=== PATIENT | male | born 1935 | race Caucasian/White ===

== ENCOUNTER 2021-05-25 07:04 | Inpatient (IN) ==
[2021-05-25] MEDS ORDERED: SODIUM CHLORIDE 0.9% 500 ML IV SCH (07:30)
[2021-05-25 08:05] LABS: Basophils # (auto) 0.01 K/uL (0-0.2); Basophils % (auto) 0.2 %; Eosinophils # (auto) 0.04 K/uL (0-0.5); Eosinophils % (auto) 0.7 %; Hematocrit (blood only) 40.4 % (42-52); Hemoglobin 13.3 g/dL (14.0-18.0); Immature Granulocytes # (auto) 0.01 K/uL (0.00-0.02); Immature Granulocytes % (auto) 0.2 %; Lymphocytes # (auto) 1.22 K/uL (1.2-3.4); Lymphocytes % (auto) 19.9 %; Mean Corpuscular Hemoglobin 29.4 pg (25-34); Mean Corpuscular Hgb Conc 32.9 g/dL (32-36); Mean Corpuscular Volume 89.2 fL (80-100); Mean Platelet Volume 11.5 fL (7.4-10.4); Monocytes # (auto) 0.44 K/uL (0.11-0.59); Monocytes % (auto) 7.2 %; Neutrophils # (auto) 4.41 K/uL (1.4-6.5); Neutrophils % (auto) 71.8 %; Platelet Count 204 K/uL (130-400); RDW Coefficient of Variation 13.5 % (11.5-14.5); RDW Standard Deviation 44.7 fL (36.4-46.3); Red Blood Count 4.53 M/uL (4.7-6.1); White Blood Count 6.13 K/uL (4.8-10.8)
--- NOTE | 2021-05-25 08:08 | Emergency Department Note ---
History of Present Illness General Chief complaint: Vertigo Stated complaint: VERTIGO SX Time Seen by Provider: 05/25/21 07:07 History of Present Illness 85-year-old male presents to the ED with a chief complaint of " dizziness in the head". The patient states that his symptoms started at 5 AM this morning. He states that the room was spinning. He came into the ED for evaluation of this. He states that it is somewhat better at this time. He also reports a frontal headache. Denies recent illness. The patient states that his headache has been intermittent and ongoing for some time. He states that he also has had some numbness in his right cheek that moved to his right upper lip. He states this is mostly gone. He had an MRI of his brain last night around 5 PM at [facility]. Results at this time are unknown. This morning his dizziness started after sitting up. Patient denies any other symptoms or focal deficits. No recent illness. Home Medications Medication Instructions Recorded Confirmed Type doxazosin 4 mg tablet (Cardura) 4 mg PO BID 05/25/21 05/25/21 History finasteride 5 mg tablet (Proscar) 5 mg PO HS 05/25/21 05/25/21 History omeprazole 20 mg capsule,delayed 20 mg PO HS 05/25/21 05/25/21 History release Allergies Allergy/AdvReac Type Severity Reaction Status Date / Time thiamine (vitamin B1) Allergy Mild RASH Verified 05/25/21 08:28 Penicillins Allergy Unknown RASH Verified 05/25/21 08:28 soy Allergy Unknown SHAKY, Verified 05/25/21 08:28 CHILLS, BM Past Med/Surg History Social History Smoking Status: Never smoker Feels Safe at Home: Yes Review of Systems A total of 10 systems reviewed and were otherwise negative Physical Exam Vital Signs Vital Signs - 24 hr 05/25/21 06:52 05/25/21 07:26 05/25/21 09:15 Temperature 36.8 C Temperature Source Oral Pulse Rate 70 59 L Pulse Rate [Right Finger] 59 L Pulse Rhythm Regular Pulse Rhythm [Right Finger] Regular Respiratory Rate 16 17 Respiratory Effort / Characteristics Non-Labored Non-Labored Blood Pressure 134/68 Blood Pressure [Left Arm] 158/74 H Blood Pressure Mean 90 Blood Pressure Mean [Left Arm] 102 Blood Pressure Position Sitting Pulse Oximetry 98 100 99 Oxygen Delivery Method Room Air Room Air Room Air Sepsis Recent Fever Within 48 Hours No Sepsis New/Unexplained Change in Mental Status No Sepsis Action Taken by Nursing No Action Required CONSTITUTIONAL/VITAL SIGNS: Reviewed / noted above. GENERAL: Non-toxic in appearance. INTEGUMENTARY: Warm, dry, and [place]. HEAD: Normocephalic. EYES: without scleral icterus or trauma. ENT/OROPHARYNX: clear and moist. LYMPHADENOPATHY/NECK: Is supple without lymphadenopathy or meningismus. RESPIRATORY: Clear to auscultation bilaterally. No increased work of breathing. CARDIOVASCULAR: Regular rate and rhythm. GI/ABDOMEN: Soft and nontender. No organomegaly or pulsatile mass. EXTREMITIES: Warm and well perfused. BACK: No CVA tenderness. NEUROLOGICAL: Intact without focal deficits. PSYCHIATRIC: normal affect. MUSCULOSKELETAL: Normally developed with good muscle tone. TRIAGE NURSING DOCUMENTATION REVIEWED. Course Administered Medications Discontinued Medications Sodium Chloride (Nss) 500 mls @ 999 mls/hr IV .Q31M RAHUL Stop: 05/25/21 08:00 Last Infusion: 05/25/21 09:20 Dose: 0 mls/hr Documented by: [id number] Admin: 05/25/21 08:19 Dose: 999 mls/hr Documented by: [id number] Acetaminophen (Ofirmev) 1,000 mg in 100 mls @ 400 mls/hr IV NOW STA Stop: 05/25/21 08:26 Last Infusion: 05/25/21 09:19 Dose: 0 mls/hr Documented by: [id number] Admin: 05/25/21 08:33 Dose: 400 mls/hr Documented by: [id number] Meclizine HCl (Meclizine Hcl 25 Mg Tab) 25 mg PO NOW STA Stop: 05/25/21 08:13 Last Admin: 05/25/21 08:32 Dose: 25 mg Documented by: [id number] Medical Decision Making Differential Diagnosis Differential includes acute coronary syndrome, myocardial infarction, CVA, TIA, anemia, infection, pneumonia, UTI, pyelonephritis, poor nutrition, dehydration, electrolyte disturbance,hypoglycemia. Medical Records Attestation: I reviewed the patient's medical records. Home Medications Current Medication List: was personally reviewed by me Laboratory Data Attestation: I reviewed the patient's lab results. Result diagrams: 05/25/21 07:58 05/25/21 07:58 Lab Results 05/25/21 05/25/21 05/25/21 Range/Units 07:58 07:58 10:17 WBC 6.13 (4.8-10.8) K/uL RBC 4.53 L (4.7-6.1) M/uL Hgb 13.3 L (14.0-18.0) g/dL Hct 40.4 L (42-52) % MCV 89.2 (80-100) fL MCH 29.4 (25-34) pg MCHC 32.9 (32-36) g/dL RDW Std Deviation 44.7 (36.4-46.3) fL RDW Coeff of Flori 13.5 (11.5-14.5) % Plt Count 204 (130-400) K/uL MPV 11.5 H (7.4-10.4) fL Immature Gran % (Auto) 0.2 % Neut % (Auto) 71.8 % Lymph % (Auto) 19.9 % Darke % (Auto) 7.2 % Eos % (Auto) 0.7 % Baso % (Auto) 0.2 % Neut # (Auto) 4.41 (1.4-6.5) K/uL Lymph # (Auto) 1.22 (1.2-3.4) K/uL Darke # (Auto) 0.44 (0.11-0.59) K/uL Eos # (Auto) 0.04 (0-0.5) K/uL Baso # (Auto) 0.01 (0-0.2) K/uL Immature Gran # (Auto) 0.01 (0.00-0.02) K/uL Sodium 142 (136-145) mmol/L Potassium 4.1 (3.5-5.1) mmol/L Chloride 113 H (98-107) mmol/L Carbon Dioxide 24 (21-32) mmol/L Anion Gap 5.0 (3-11) BUN 20 H (7-18) mg/dl Creatinine 1.01 (0.6-1.4) mg/dl Est Cr Clr Drug Dosing 55.4 ml/min Est GFR ( Amer) 79.4 ml/min Est GFR (Non-Af Amer) 68.5 ml/min BUN/Creatinine Ratio 19.8 (10-20) Glucose 98 (70-99) mg/dl Calcium 8.5 (8.5-10.1) mg/dl Total Bilirubin 0.5 (0.2-1) mg/dl AST 16 (15-37) U/L ALT 16 (12-78) U/L Alkaline Phosphatase 67 (45-117) U/L Total Protein 6.2 L (6.4-8.2) gm/dl Albumin 3.3 L (3.4-5.0) gm/dl Globulin 2.9 (2.5-4.0) gm/dl Albumin/Globulin Ratio 1.1 (0.9-2) TSH 0.760 (0.300-4.500) uIu/ml COVID-19 Eval Order Covid19 at [facility] Imaging Data Radiologist's Impression: Chest X-Ray 05/25/21 07:26 SINGLE VIEW CHEST CLINICAL HISTORY: Generalized weakness. Vertigo. FINDINGS: An AP, portable, upright chest radiograph is compared to study dated 07/27/2010. The cardiomediastinal silhouette is unremarkable noting atherosclerotic calcification of the thoracic aorta. The lungs and pleural spaces are clear. No pneumothorax is seen. The skeletal structures are osteo penic. The bony thorax is grossly intact. IMPRESSION: No active disease in the chest. ACT 112: Negative or not required by law. Electronically signed by: Harsh Smalls M.D. 05/25/2021 8:[address] 05/25/21 07:26 CT OF THE HEAD WITHOUT CONTRAST CLINICAL HISTORY: Frontal headache. COMPARISON STUDY: No previous studies for comparison. CT DOSE: 537.48 mGy.cm TECHNIQUE: Helical axial images of the head were obtained without IV contrast. Automated exposure control was utilized for the study. A dose lowering technique was utilized adhering to the principles of ALARA. FINDINGS: No acute intracranial hemorrhage, midline shift or mass effect is present. White matter hypodensities favor small vessel disease. The ventricular system is unremarkable. The basal cisterns are patent. No extra-axial collections are present. There are no findings to suggest acute dural sinus thrombosis or acute territorial infarct. No significant calvarial abnormalities are present. Visualized portions of the sinuses and mastoid air cells are clear. IMPRESSION: No acute intracranial findings. ACT 112: Negative or not required by law. Electronically signed by: Ant Shelley M.D. 05/25/2021 8:28 AM ECG Data Attestation: I personally reviewed and interpreted this ECG as follows: Additional Comments: Twelve-lead EKG: Per my interpretation there is a sinus rhythm at a rate of 64 with a first-degree AV block and a right bundle branch block. No ST elevation. No PVCs. Normal QTC. MDM Narrative Patient presents with dizziness and the sensation of the room spinning around 5 AM this morning after sitting up. He is also had some numbness in his right cheek for over a week. Had MRI of his brain last night. Currently complaining of a frontal headache. Dizziness symptoms seem to have mostly resolved. Numbness in the cheek has moved to the right upper lip and is mostly gone. Patient's EKG shows a sinus rhythm. CBC and chemistry panel was unremarkable. A chest x-ray did not show acute process. TSH was normal. CT scan of the brain did not show acute process. We had the MRI that was done last night read by the neurology service at [facility]. This shows a small acute to subacute lacunar type infarct in the left thalamus. Because of this, the patient will be seen by the hospitalist for further inpatient evaluation and care. The patient has been placed on aspirin prior to coming to the ED. He was treated with IV fluids, p.o. meclizine and IV Tylenol for his headache. He has no focal neurologic deficits on my exam. Impression & Plan Lacunar infarct, acute, Dizziness Discharge Plan Visit Data Chief Complaint: Vertigo Stated Complaint: VERTIGO SX ED Provider: Jacques Livingston Discharge Problem: Lacunar infarct, acute, Dizziness Patient Disposition: Being Evaluated by Hospitalist Forms Stand Alone Forms: My [facility] Prescriptions Prescriptions: No Action omeprazole 20 mg capsule,delayed release(DR/EC) 20 mg PO HS RF: 0 doxazosin [Cardura] 4 mg tablet 4 mg PO BID RF: 0 finasteride [Proscar] 5 mg tablet 5 mg PO HS RF: 0 Referrals Referrals: Grant Gold, [Primary Care Provider] -
[2021-05-25] MEDS ORDERED: MECLIZINE HCL 25 MG TAB PO STA (08:12)
[2021-05-25] MEDS ORDERED: ACETAMINOPHEN 1,000 MG/100 ML VIAL IV STA (08:12)
[2021-05-25 08:26] LABS: Albumin Level 3.3 gm/dl (3.4-5.0); BUN Creatinine Ratio 19.8 (10-20); Calcium 8.5 mg/dl (8.5-10.1); Creatinine Clr Calc Pharmacy 55.4 ml/min; Est GFR (African American) 79.4 ml/min; Est GFR (Non-African American) 68.5 ml/min; Potassium 4.1 mmol/L (3.5-5.1)
--- NOTE | 2021-05-25 08:29 | CT Scan Report ---
CT OF THE HEAD WITHOUT CONTRAST CLINICAL HISTORY: Frontal headache. COMPARISON STUDY: No previous studies for comparison. CT DOSE: 537.48 mGy.cm TECHNIQUE: Helical axial images of the head were obtained without IV contrast. Automated exposure con trol was utilized for the study. A dose lowering technique was utilized adhering to the principles o f ALARA. FINDINGS: No acute intracranial hemorrhage, midline shift or mass effect is present. White matter hyp odensities favor small vessel disease. The ventricular system is unremarkable. The basal cisterns are patent. No extra-axial collections are present. There are no findings to suggest acute dural sinus t hrombosis or acute territorial infarct. No significant calvarial abnormalities are present. Visualize d portions of the sinuses and mastoid air cells are clear. IMPRESSION: No acute intracranial findings. ACT 112: Negative or not required by law. Electronically signed by: Ant Shelley M.D. 05/25/2021 8:28 AM
[2021-05-25 08:36] LABS: Albumin Globulin Ratio 1.1 (0.9-2); Bilirubin,Total 0.5 mg/dl (0.2-1); Globulin 2.9 gm/dl (2.5-4.0); Thyroid Stimulating Hormone 0.76 uIu/ml (0.300-4.500); Total Protein 6.2 gm/dl (6.4-8.2)
--- NOTE | 2021-05-25 08:36 | XRay Report ---
SINGLE VIEW CHEST CLINICAL HISTORY: Generalized weakness. Vertigo. FINDINGS: An AP, portable, upright chest radiograph is compared to study dated 07/27/2010. The cardio mediastinal silhouette is unremarkable noting atherosclerotic calcification of the thoracic aorta. Th e lungs and pleural spaces are clear. No pneumothorax is seen. The skeletal structures are osteopenic . The bony thorax is grossly intact. IMPRESSION: No active disease in the chest. ACT 112: Negative or not required by law. Electronically signed by: Harsh Smalls M.D. 05/25/2021 8:35 AM
--- NOTE | 2021-05-25 10:19 | History & Physical Report ---
Date of Service May 25, 2021 Assessment & Plan (1) Lacunar infarct, acute: Plan: - Admit to med surg with tele - MRI from [facility] reviewed as outpatient showin. Small acute to subacute lacunar type infarct in the left thalamus. No evidence of associated blood products. 2. 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 - Neuro consulted - Stoke order set completed - PT/OT consults - Allow for permissive HTN with BP: currently 158/74 and Pulse 59. - Lyme resulted negative from lab work on 05/22 - Received flu shot on 05/22, completed COVID vaccination in Sep 2020 - Start on aspirin, plavix and statin therapy today - Allow diet once passes bedside swallow eval (2) Dizziness: Plan: - Due to above (3) Facial numbness: Plan: - Due to above (4) Headache: Plan: - Due to above (5) BPH (benign prostatic hyperplasia): Plan: - hx of such, continue medications (6) Osteoarthritis: Plan: - PT/OT consults (7) Monoclonal paraproteinemia: Plan: - Noted, chronic DVT ppx: - teds, aspirin and Plavix CODE: Full code Dispo: From home, likely to remain in the hospital x 1-2 days History of Present Illness Primary Care Provider: Grant Gold, This is an 85 yo M with PMhx of osteoarthritis, monoclonal paraproteinemia, BPH with LUTS, hx of small bowel obstruction and schatzki's ring. Pt reports having right sided facial numbness which was present upon waking up this past Saturday morning (5 days ago). 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 He denies having any speech or swallowing issues at that point. Specifically the numbness involves his right upper lip and cheek. He contacted his PCP for this. MRI was ordered, Lyme ordered (resulted negative) and he received his flu vaccine on 05/22. He was also referred to neurology, and saw Sofie Bond PA-C yesterday who ordered an MRI of the brain. Today he noticed headache and dizziness and so came to the ER. His numbess of the cheek is gone, and feels his upper lip numbness has improved but is not completely back to normal. He feels as if a Novocain injection had started to wear off, but didn't receive such an injection. His MRI had not resulted prior to coming to the ER, so once here radiology was called to read his reports obtained from yesterday. MRI resulted this morning shows small acute to subacute lacunar type infarct in the left thalamus. No evidence of associated blood products. 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 Surgical Hx: Partial bowel resection approximately 20 years ago, abdominal adhesions, requiring surgery x2, status post cholecystectomy and appendectomy Allergies Allergy/AdvReac Type Severity Reaction Status Date / Time thiamine (vitamin B1) Allergy Mild RASH Verified 05/25/21 08:28 Penicillins Allergy Unknown RASH Verified 05/25/21 08:28 soy Allergy Unknown SHAKY, Verified 05/25/21 08:28 CHILLS, BM Home Medications Medication Instructions Recorded Confirmed Type doxazosin 4 mg tablet (Cardura) 8 mg PO HS 05/25/21 05/25/21 History finasteride 5 mg tablet (Proscar) 5 mg PO HS 05/25/21 05/25/21 History aspirin 81 mg tablet,delayed 81 mg PO QAM #30 tab 05/26/21 Rx release atorvastatin 40 mg tablet 40 mg PO QAM #30 tab 05/26/21 Rx clopidogrel 75 mg tablet 75 mg PO QAM #30 tab 05/26/21 Rx pantoprazole 40 mg tablet,delayed 40 mg PO HS #30 tab 05/26/21 Rx release Past Med/Surg History Social History Smoking Status: Never smoker Hx Alcohol Use: No Hx Substance Use: No Communication Ability: Effective Beliefs That Will Affect Care: None marital status: Current Living Situation: Spouse How many Children do You have: 3 Feels Safe at Home: Yes Safety Concerns: Feels Safe At This Time Assistive Devices: None Review of Systems Review of Systems: Constitutional: No fever, sweats or chills, + dizziness, +headache Eyes: No diplopia, no worsening or blurred vision ENT: normal hearing, no trouble swallowing, food occasionally gets stuck, hx of dilation of esophagus x 2 previously Respiratory: No cough, sputum, dyspnea at rest or on exertion Cardiovascular: No chest pain, tightness or palpitations Abdomen: No pain, nausea, vomiting, diarrhea or constipation, + bloated Musculoskeletal: No joint pain, calf pain, swelling Neurologic: No weakness, +numbness/tingling in Right upper lip as per HPI, or balance problems Psychiatric: No anxiety or depression Skin: No rash or itch Physical Exam Physical Exam: General: awake, alert, no apparent distress, appears younger than stated age Head: Normocephalic, atraumatic ENT: PERRL, EOMI, no pharyngeal exudate, mucous membranes moist Chest: Clear to auscultation, on room air, no adventitious breath sounds Cardiac: Regular rate and rhythm, no murmur, no JVD, normal peripheral pulses, good capillary refill Abdominal: NABS x 4 quadrants, soft, nondistended, nontender to palpation, no rebound or guarding Extremities: Normal inspection, no peripheral edema or erythema, calfs nontender to palpation Psych: Normal mood and affect Neuro: AAO x 3, + numbness to light touch on R upper lip, no numbness in R cheek, strength intact bilaterally and rated 5/5, no motor deficits, speech is clear, no peripheral sensory deficits Results & Data Results & Data ([facility]) Vital Signs (Past 12 Hours) Vital Signs Temp Pulse Pulse Resp BP BP Pulse Ox 05/25/21 09:15 59 L 17 158/74 H 99 05/25/21 07:26 59 L 100 05/25/21 06:52 36.8 C 70 16 134/68 98 Diagnostic Findings Chest X-Ray 05/25/21 07:26 SINGLE VIEW CHEST CLINICAL HISTORY: Generalized weakness. Vertigo. FINDINGS: An AP, portable, upright chest radiograph is compared to study dated 07/27/2010. The cardiomediastinal silhouette is unremarkable noting atherosclerotic calcification of the thoracic aorta. The lungs and pleural spaces are clear. No pneumothorax is seen. The skeletal structures are osteopenic. The bony thorax is grossly intact. IMPRESSION: No active disease in the chest. ACT 112: Negative or not required by law. Electronically signed by: Harsh Smalls M.D. 05/25/2021 8:[address] 05/25/21 07:26 CT OF THE HEAD WITHOUT CONTRAST CLINICAL HISTORY: Frontal headache. COMPARISON STUDY: No previous studies for comparison. CT DOSE: 537.48 mGy.cm TECHNIQUE: Helical axial images of the head were obtained without IV contrast. Automated exposure control was utilized for the study. A dose lowering technique was utilized adhering to the principles of ALARA. FINDINGS: No acute intracranial hemorrhage, midline shift or mass effect is present. White matter hypodensities favor small vessel disease. The ventricular system is unremarkable. The basal cisterns are patent. No extra-axial collections are present. There are no findings to suggest acute dural sinus thrombosis or acute territorial infarct. No significant calvarial abnormalities are present. Visualized portions of the sinuses and mastoid air cells are clear. IMPRESSION: No acute intracranial findings. ACT 112: Negative or not required by law. Electronically signed by: Ant Shelley M.D. 05/25/2021 8:28 AM ECG Additional Comments: 25-MAY-2021 07:34:29 [facility]-EDSTAT ROUTINE RETRIEVAL Sinus rhythm with 1st degree A-V block Left axis deviation Right bundle branch block Inferior infarct (cited on or before 25-MAY-2021) Abnormal ECG When compared with ECG of 17-APR-2007 11:15, [place] interval has increased 25mm/s 10mm/mV 150Hz 9.0.9 12SL 241 JAMES: 16 Referred by: REFERRED SELF Unconfirmed Vent. rate 64 BPM WY interval 220 ms QRS duration 124 ms QT/QTc 436/449 ms Code Status & VTE Plan Code Status Full code Supervising Physician Co-Signing Physician Notes Pt was seen and examined. Agreed with Janis IBARRA exam, assessment abd plan. 85 yo M with PMhx of osteoarthritis, monoclonal paraproteinemia, BPH with LUTS, hx of small bowel obstruction and schatzki's ring was sent to the ER after outpatient MRI showed small acute to subacute lacunar type infarct in the left thalamus. Pt had MRI done for right sided facial numbness, numbness involves his right upper lip and cheek that was ordered by Neuro (outpatient) Today he noticed headache and dizziness and so came to the ER. His numbess of the cheek is gone, and feels his upper lip numbness has improved but is not completely back to normal. CT done in the ER was unremarkable. Will start on Plavix and aspirin. Will get an echo. PT/OT/Speech eval. Neuro consult. Continue monitor closely. MD [place]
[2021-05-25] MEDS: CLOPIDOGREL BISULFATE 75 MG TAB PO SCH (13:07)
[2021-05-25] MEDS: ASPIRIN 81 MG ECTAB PO SCH (13:07)
[2021-05-25] MEDS: ATORVASTATIN 40 MG TAB PO SCH (13:08)
--- NOTE | 2021-05-25 15:11 | Electrocardiogram Report ---
Test Reason : Blood Pressure : / mmHG Vent. Rate : 064 BPM Atrial Rate : 064 BPM P-R Int : 220 ms QRS Dur : 124 ms QT Int : 436 ms P-R-T Axes : 057 -61 020 degrees QTc Int : 449 ms Sinus rhythm with 1st degree A-V block Left axis deviation Right bundle branch block Inferior infarct (cited on or before 25-MAY-2021) Abnormal ECG When compared with ECG of 17-APR-2007 11:15, [place] interval has increased Confirmed by Ry Riley ([id number]) on 05/25/2021 3:11:20 PM Referred By: REFERRED SELF Confirmed By:Ry Riley
[2021-05-25] MEDS ORDERED: PHARMACIST DISCHARGE MED REC CONSULT PRN (15:55)
[2021-05-25] MEDS ORDERED: PANTOprazole 40 MG TAB PO SCH (21:00)
[2021-05-25] MEDS ORDERED: DOXAZosin MESYLATE 4 MG TAB PO SCH (21:00)
[2021-05-25] MEDS ORDERED: FINASTERIDE 5 MG TAB PO SCH (21:00)
[2021-05-26 06:59] LABS: Appearance Urine Clear (Clear); Bilirubin Urine Negative (Negative); Blood Urine Negative (Negative); Color Urine Yellow; Glucose Urine UA Negative (Negative); Ketones Urine Negative (Negative); Leukocyte Esterase Urine Negative (Negative); Nitrite Urine Negative (Negative); Protein Urine Negative (Negative); Specific Gravity Urine 1.014 (1.000-1.030); Urobilinogen Urine Negative (Negative); pH Urine 5.5 (4.5-7.5)
[2021-05-26 07:54] LABS: Basophils # (auto) 0.01 K/uL (0-0.2); Basophils % (auto) 0.2 %; Eosinophils # (auto) 0.14 K/uL (0-0.5); Eosinophils % (auto) 2.8 %; Hematocrit (blood only) 39.1 % (42-52); Hemoglobin 12.9 g/dL (14.0-18.0); Lymphocytes # (auto) 1.77 K/uL (1.2-3.4); Lymphocytes % (auto) 35.5 %; Mean Corpuscular Hemoglobin 29.5 pg (25-34); Mean Corpuscular Volume 89.5 fL (80-100); Mean Platelet Volume 11.6 fL (7.4-10.4); Monocytes # (auto) 0.58 K/uL (0.11-0.59); Monocytes % (auto) 11.6 %; Neutrophils # (auto) 2.49 K/uL (1.4-6.5); Neutrophils % (auto) 49.9 %; Platelet Count 197 K/uL (130-400); RDW Coefficient of Variation 13.7 % (11.5-14.5); RDW Standard Deviation 45.2 fL (36.4-46.3); Red Blood Count 4.37 M/uL (4.7-6.1); White Blood Count 4.99 K/uL (4.8-10.8)
[2021-05-26 07:55] LABS: Estimated Average Glucose 111 mg/dl; Hemoglobin A1C 5.5 % (4.5-5.6)
[2021-05-26 08:03] LABS: Calcium 7.8 mg/dl (8.5-10.1); Creatinine Clr Calc Pharmacy 47.1 ml/min; Est GFR (African American) 66.4 ml/min; Est GFR (Non-African American) 57.3 ml/min; Potassium 4.2 mmol/L (3.5-5.1)
[2021-05-26] MEDS ORDERED: ASPIRIN 81 MG ECTAB PO SCH (09:00)
[2021-05-26] MEDS ORDERED: ATORVASTATIN 40 MG TAB PO SCH (09:00)
[2021-05-26] MEDS: CLOPIDOGREL BISULFATE 75 MG TAB PO SCH (09:15)
[2021-05-26] MEDS: ATORVASTATIN 40 MG TAB PO SCH (09:15)
[2021-05-26] MEDS: ASPIRIN 81 MG ECTAB PO SCH (09:15)
--- NOTE | 2021-05-26 12:58 | Neurology Consultation ---
Date of Consultation May 26, 2021 Assessment & Plan (1) Lacunar infarct, acute: 1. add plavix 75 mg and aspirin 81 mg daily for 21 days then aspirin 81 mg alone for life 2. optimize HTN HLD LDL <70 3. PT/OT for discharge needs 4. TTE- pending read 5. carotid doppler no high grade stenosis or occlusion 6. follow up with neurology 4-6 weeks after discharge. Supervising Physician Co-Signing Physician Notes I have seen and discussed above patient with Dr Sofie Conway, neurology patient seen and examined. History reviewed. Patient reports numbness in right face that came on 1 to 2 weeks ago. He had an MRI on Saturday night that showed a small left thalamic lacune. I reviewed those outpatient images. Apparently when he came into the emergency room the following day he did so because of continuous vertigo. He awakened with a severe headache that was frontal. He has no history of headaches and he had nonpositional vertigo which lasted hours. He indicated the vision was blurred but not double and that he did not otherwise notice any focal neurologic symptoms such as diplopia dysarthria facial droop or unilateral weakness or numbness. He was quite unsteady. There were no otologic symptoms. The dizziness responded in the emergency room after several hours I assume with some hydration and meclizine. Patient CT of the head which I have reviewed is noncontributory his carotid ultrasound shows antegrade flow in the verts and no high-grade stenosis in the carotids. His echo apparently shows a small ASD with a minimal shunt. He has no history of rheumatic fever or murmur prior transient ischemic attack. His baseline LDL is less than 70. Patient is awake and alert speech and language are normal affect appropriate he has some repetitive brow raising and a little bit of blepharospasm which I suspect is long-term and represents a tic his pupils are postsurgical optic nerves appeared unremarkable motility was normal without nystagmus normal facial sensation facial symmetry. Motor 5 out of 5 no drift normal rapid alternating movements. Symmetric reflexes downgoing toes [id number] and [id number] are normal. Gait and tandem are normal Romberg is negative. Sensation is i ntact to light touch bilaterally This patient had an acute left thalamic lacune which explains his right facial numbness. I am somewhat more concerned about the symptom of persistent nonpositional vertigo lasting hours. The left thalamic lacunar would not explain that although generators of vertigo and the thalamus have both the posterior circulation. This raises the question whether or not there may be any posterior circulation stenosis. I think the best course would be to repeat an MRI of the brain and do an MRA of the head and neck the neck with and without contrast. The patient declines although he understands that we have not necessarily adequately visualize the posterior circulation. The management would likely be unchanged (dual antiplatelet therapy x3 weeks then aspirin monotherapy) but still the information helpful if he had recurrent events. Given that he had this vertigo that is otherwise not explained I would recommend a Zio patch as an outpatient. I have communicated my advice to Dr. Gutierrez History of Present Illness Reason for Consultation: stroke Requesting Physician: Imtiaz Wallace MD Attending Physician: Imtiaz Wallace MD History of Present Illness Mauricio is an 85 year old male with PMH-OA, monoclonal paraproteinemia, BPH with LUTS, small bowel obstruction and schatzki's ring. He was having right sided facial numbness which was present upon waking on Saturday05/20/2021. 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 He was seen in our office 05/24/21 and ordered an MRI. Today he noticed headache and dizziness so he came to the ED. He was dizzy for about 3-4 hours and didn't resolve until they gave him some IV fluids. He had no one sided weakness, CP, SOB abdominal pain, N, V Allergies Allergy/AdvReac Type Severity Reaction Status Date / Time thiamine (vitamin B1) Allergy Mild RASH Verified 05/25/21 08:28 Penicillins Allergy Unknown RASH Verified 05/25/21 08:28 soy Allergy Unknown SHAKY, Verified 05/25/21 08:28 CHILLS, BM Home Medications Medication Instructions Recorded Confirmed Type doxazosin 4 mg tablet (Cardura) 8 mg PO HS 05/25/21 05/25/21 History finasteride 5 mg tablet (Proscar) 5 mg PO HS 05/25/21 05/25/21 History omeprazole 20 mg capsule,delayed 20 mg PO HS 05/25/21 05/25/21 History release Patient History Social History Smoking Status: Never smoker Hx Alcohol Use: No Hx Substance Use: No Communication Ability: Effective Beliefs That Will Affect Care: None marital status: Current Living Situation: Spouse How many Children do You have: 3 Feels Safe at Home: Yes Safety Concerns: Feels Safe At This Time Assistive Devices: None Review of Systems Review of Systems: All systems reviewed & are unremarkable except as noted in HPI & below Physical Exam Physical Exam: Physical Exam: Constitutional: appearance nourished, healthy and normal Ears, Nose, Mouth and Throat: mucous membranes moist, no injection and skin normal, eyes normal Cardiovascular: normal S-1 and S-2 and regular rate and rhythm Respiratory: clear to auscultation (CTA) and no rales, rhonchi or wheeze Musculoskeletal: no peripheral edema Skin: no stigmata of neurocutaneous disease noted and normal and intact Eyes: extraocular muscles intact (EOMI) and pupils equal, round and reactive to light (PERRL), gross peripheral mcneill intact NEUROLOGIC EXAMINATION: Mental status: Alert and interactive Oriented to full date and location Oriented to person Speech fluent with no evidence of aphasia Cranial Nerves smile eye brow raise symmetric Reflexes: Deep tendon reflexes were symmetrical and graded 2/5. Sensory: no sensory deficits Coordination: finger to nose no bipass Gait/Stance: Posture normal. Gait normal: with steady with steps, base, tandem gait. Motor: Negative for pronator drift of out stretched arms with eyes closed. Strength: hand matting press tender biceps triceps bilaterally 5/5, hip flex 5/5 bilaterally Results & Data ([facility]) Vital Signs (Past 12 Hours) Vital Signs Temp Pulse Pulse Resp BP Pulse Ox 05/26/21 10:51 36.7 C 69 16 128/72 95 05/26/21 08:00 69 05/26/21 07:42 36.6 C 76 16 118/68 97 05/26/21 07:20 36.7 C 83 18 137/66 97 05/26/21 03:30 36.6 C 65 19 130/68 96 05/26/21 03:16 66 Laboratory Results Abnormal lab results 05/26/21 05/26/21 Range/Units 07:16 07:16 RBC 4.37 L (4.7-6.1) M/uL Hgb 12.9 L (14.0-18.0) g/dL Hct 39.1 L (42-52) % MPV 11.6 H (7.4-10.4) fL Chloride 114 H (98-107) mmol/L BUN 21 H (7-18) mg/dl Calcium 7.8 L (8.5-10.1) mg/dl Diagnostic Findings MRI brain -Small acute to subacute lacunar type infarct in the left thalamus. No evidence of associated blood products. 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 CT head-o acute intracranial hemorrhage, midline shift or mass effect is present. White matter hypodensities favor small vessel disease. The ventricular system is unremarkable. The basal cisterns are patent. No extra-axial collections are present. There are no findings to suggest acute dural sinus thrombosis or acute territorial infarct. No significant calvarial abnormalities are present. Visualized portions of the sinuses and mastoid air cells are clear. CXR- No active disease in the chest. carotid doppler-No hemodynamically significant stenosis seen within the carotid arteries. Medications Administered
--- NOTE | 2021-05-26 16:01 | Ultrasound Report ---
BILATERAL CAROTID DOPPLER STUDY HISTORY: Stroke symptoms. Frontal headache. COMPARISON: None. TECHNIQUE: Real-time, grayscale, and color Doppler sonography of the carotid arteries was performed. Imaging reviewed in the transverse and longitudinal planes. All measurements were calculated based on NASCET criteria. FINDINGS: Antegrade flow is seen in the bilateral vertebral arteries. The brachial pressures are hemodynamically similar. Mild calcified plaque within the left carotid bulb. The peak systolic velocity within the right ICA is 82 cm/s. The right systolic ratio is 1. The peak systolic velocity within the left ICA is 54 cm/s. The left systolic ratio is 0.6. IMPRESSION: No hemodynamically significant stenosis seen within the carotid arteries. ACT 112: Negative or not required by law. Electronically signed by: Amauri Clark M.D. 05/26/2021 4:00 PM
--- NOTE | 2021-05-26 17:20 | Discharge Summary ---
Date of Service May 26, 2021 Admission HPI Per Admitting Provider This is an 85 yo M with PMhx of osteoarthritis, monoclonal paraproteinemia, BPH with LUTS, hx of small bowel obstruction and schatzki's ring. Pt reports having right sided facial numbness which was present upon waking up this past Saturday morning (5 days ago). 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 He denies having any speech or swallowing issues at that point. Specifically the numbness involves his right upper lip and cheek. He contacted his PCP for this. MRI was ordered, Lyme ordered (resulted negative) and he received his flu vaccine on 05/22. He was also referred to neurology, and saw Sofie Bond PA-C yesterday who ordered an MRI of the brain. Today he noticed headache and dizziness and so came to the ER. His numbess of the cheek is gone, and feels his upper lip numbness has improved but is not completely back to normal. He feels as if a Novocain injection had started to wear off, but didn't receive such an injection. His MRI had not resulted prior to coming to the ER, so once here radiology was called to read his reports obtained from yesterday. MRI resulted this morning shows small acute to subacute lacunar type infarct in the left thalamus. No evidence of associated blood products. 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 Surgical Hx: Partial bowel resection approximately 20 years ago, abdominal adhesions, requiring surgery x2, status post cholecystectomy and appendectomy Admission Exam Per Admitting Provider General: awake, alert, no apparent distress, appears younger than stated age Head: Normocephalic, atraumatic ENT: PERRL, EOMI, no pharyngeal exudate, mucous membranes moist Chest: Clear to auscultation, on room air, no adventitious breath sounds Cardiac: Regular rate and rhythm, no murmur, no JVD, normal peripheral pulses, good capillary refill Abdominal: NABS x 4 quadrants, soft, nondistended, nontender to palpation, no rebound or guarding Extremities: Normal inspection, no peripheral edema or erythema, calfs nontender to palpation Psych: Normal mood and affect Neuro: AAO x 3, + numbness to light touch on R upper lip, no numbness in R cheek, strength intact bilaterally and rated 5/5, no motor deficits, speech is clear, no peripheral sensory deficits Principal Diagnosis Lacunar infarct, acute: Discharge Exam General: awake, alert, no apparent distress, appears younger than stated age Head: Normocephalic, atraumatic ENT: PERRL, EOMI, no pharyngeal exudate, mucous membranes moist Chest: Clear to auscultation, on room air, no adventitious breath sounds Cardiac: Regular rate and rhythm, no murmur, no JVD, normal peripheral pulses, good capillary refill Abdominal: NABS x 4 quadrants, soft, nondistended, nontender to palpation, no rebound or guarding Extremities: Normal inspection, no peripheral edema or erythema, calfs nontender to palpation Psych: Normal mood and affect Neuro: AAO x 3, + numbness to light touch on R upper lip, no numbness in R cheek, strength intact bilaterally and rated 5/5, no motor deficits, speech is clear, no peripheral sensory deficits Discharge Data Allergies Allergy/AdvReac Type Severity Reaction Status Date / Time thiamine (vitamin B1) Allergy Mild RASH Verified 05/25/21 08:28 Penicillins Allergy Unknown RASH Verified 05/25/21 08:28 soy Allergy Unknown SHAKY, Verified 05/25/21 08:28 CHILLS, BM Consultations 05/25/21 10:32 ED Decision to Admit Stat 05/25/21 15:55 Consult Neurology Routine Ordered Studies 05/25/21 07:26 CT head/brain wo con Stat 05/26/21 12:15 US carotid doppler BI Routine BILATERAL CAROTID DOPPLER STUDY HISTORY: Stroke symptoms. Frontal headache. COMPARISON: None. TECHNIQUE: Real-time, grayscale, and color Doppler sonography of the carotid arteries was performed. Imaging reviewed in the transverse and longitudinal planes. All measurements were calculated based on NASCET criteria. FINDINGS: Antegrade flow is seen in the bilateral vertebral arteries. The brachial pressures are hemodynamically similar. Mild calcified plaque within the left carotid bulb. The peak systolic velocity within the right ICA is 82 cm/s. The right systolic ratio is 1. The peak systolic velocity within the left ICA is 54 cm/s. The left systolic ratio is 0.6. IMPRESSION: No hemodynamically significant stenosis seen within the carotid arteries. ACT 112: Negative or not required by law. Electronically signed by: Amauri Clark M.D. 05/26/2021 4:00 PM Dictated:05/26/211558 Transcribed: 05/26/211558 CT OF THE HEAD WITHOUT CONTRAST CLINICAL HISTORY: Frontal headache. COMPARISON STUDY: No previous studies for comparison. CT DOSE: 537.48 mGy.cm TECHNIQUE: Helical axial images of the head were obtained without IV contrast. Automated exposure control was utilized for the study. A dose lowering technique was utilized adhering to the principles of ALARA. FINDINGS: No acute intracranial hemorrhage, midline shift or mass effect is present. White matter hypodensities favor small vessel disease. The ventricular system is unremarkable. The basal cisterns are patent. No extra-axial collections are present. There are no findings to suggest acute dural sinus thrombosis or acute territorial infarct. No significant calvarial abnormalities are present. Visualized portions of the sinuses and mastoid air cells are clear. IMPRESSION: No acute intracranial findings. ACT 112: Negative or not required by law. Electronically signed by: Ant Shelley M.D. 05/25/2021 8:28 AM Dictated:05/25/21824 Transcribed: 05/25/21824 Diabetes Follow up SINGLE VIEW CHEST CLINICAL HISTORY: Generalized weakness. Vertigo. FINDINGS: An AP, portable, upright chest radiograph is compared to study dated 07/27/2010. The cardiomediastinal silhouette is unremarkable noting atherosclerotic calcification of the thoracic aorta. The lungs and pleural spaces are clear. No pneumothorax is seen. The skeletal structures are osteopenic. The bony thorax is grossly intact. IMPRESSION: No active disease in the chest. ACT 112: Negative or not required by law. Electronically signed by: Harsh Smalls M.D. 05/25/2021 8:35 AM Dictated:05/25/21834 Transcribed: 05/25/21834 Hospital Course (1) Lacunar infarct, acute: - Admit to med surg with tele - MRI from [facility] reviewed as outpatient showin. Small acute to subacute lacunar type infarct in the left thalamus. No evidence of associated blood products. 2. 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 Neuro consulted recommended to repeat MRI head but pt does not want to stay in the hospital. He said that he would do it outpatient Allow for permissive HTN with BP: currently 158/74 and Pulse 59. Lyme resulted negative from lab work on 05/22 Received flu shot on 05/22, completed COVID vaccination in Sep 2020 ECHO showed shows a small ASD with a minimal shunt. Echo finding discussed with cardiology and no additional testing or intervention needed Continue aspirin, plavix and statin therapy Continue PT/OT Follow up with neurology in 4-6 weeks Will need to get arranged for an Ziopatch monitor outpatient (2) Dizziness: - Due to above (3) Facial numbness: - Due to above (4) Headache: - Due to above (5) BPH (benign prostatic hyperplasia): - hx of such, continue medications (6) Osteoarthritis: - PT/OT consults (7) Monoclonal paraproteinemia: - Noted, chronic DVT ppx: - teds, aspirin and Plavix CODE: Full code Dispo: Discharge home Follow up with neuro in 4-6 weeks Total Time Total Time Spent Total Time Spent (In Minutes): 35 minutes Discharge Plan Discharge Items Patient Disposition: Home - Self-Care Reason For Visit: LACUNAR STROKE Discharge Diagnosis: Lacunar infarct, acute: Activity: Resume your previous activity Non-emergency contact: Primary Care Provider and Neurologist Call non-emergency contact if: you have any medication questions Follow-up/Referrals: Grant Gold, [Primary Care Provider] - Diet: Heart Healthy Addtl Attending Provider Instructions: Follow up with your primary care provider within 1 week ( call to schedule for the appointment) Follow up with Neurology Dr. Alvarado or (any of her colleague) in 4 to 6 weeks Continue plavix 75 mg and aspirin 81 mg daily for 21 days then after 21 days continue aspirin 81 mg alone for life You will need to arrange for a Zio patch (Heart Monitor ) outpatient. Your provider or neurology will order it You will need a repeat an MRI of the brain and an MRA of the head and neck with and without contrast. (As per neuro you don't want to stay in the hospital to repeat the MRI and MRA. Neuro will try to arrange it outpatient) Avoid any other NSAID (Such as motrin, aleve, naproxen, ibuprofen, advil....while on aspirin and plavix due to the risk of bleeding Your physician will check your LFT in 1-2 weeks to monitor your liver enzymes while on statin Fall precaution Pending Studies at Discharge: No Stand-Alone Forms: Medications to Prevent Stroke, ABT Molecular Imaging, Smoking Cessation Medications and DC Order Prescriptions: New clopidogrel 75 mg Tablet 75 mg PO QAM Qty: 30 RF: 0 atorvastatin 40 mg Tablet 40 mg PO QAM Qty: 30 RF: 0 aspirin 81 mg Tablet,Delayed Release (Dr/Ec) 81 mg PO QAM Qty: 30 RF: 0 pantoprazole 40 mg Tablet,Delayed Release (Dr/Ec) 40 mg PO HS Qty: 30 RF: 0 Continued doxazosin [Cardura] 4 mg tablet 8 mg PO HS RF: 0 finasteride [Proscar] 5 mg tablet 5 mg PO HS RF: 0 Discontinued omeprazole 20 mg capsule,delayed release(DR/EC) 20 mg PO HS RF: 0 Discharge Orders: Discharge Order (Routine); Ordered 05/26/21 Ordered By: Imtiaz Wallace Admission Data Admit Date/Time: 05/25/21 12:16 Attending Provider: Imtiaz Wallace Admit Provider: Imtiaz Wallace Primary Care Provider: Grant Gold Other Providers: Sofie Conway Other Interventions: Discharge Summary Assessment (RN) Last Done: 05/26/21 18:22
[2021-05-26] MEDS ORDERED: STROKE PATIENT DISCHARGE STA (18:03)
--- NOTE | 2021-05-26 18:42 | Pharmacy Report ---
Pharmacist Stroke Counseling - Date of Service May 26, 2021 - Scope: Pharmacy has been consulted to provide medication discharge counseling for this patient admitted with ischemic stroke as per the Pharmacist Discharge Counseling for Stroke Patients Protocol. - Medications on Discharge: Home Medications Medication Instructions Recorded Confirmed doxazosin 4 mg tablet (Cardura) 8 mg PO HS 05/25/21 05/25/21 finasteride 5 mg tablet (Proscar) 5 mg PO HS 05/25/21 05/25/21 New Rx's Medication Instructions Recorded aspirin 81 mg tablet,delayed 81 mg PO QAM #30 tab 05/26/21 release atorvastatin 40 mg tablet 40 mg PO QAM #30 tab 05/26/21 clopidogrel 75 mg tablet 75 mg PO QAM #30 tab 05/26/21 pantoprazole 40 mg tablet,delayed 40 mg PO HS #30 tab 05/26/21 release - Action: The above medications, specifically ones for stroke treatment/prophylaxis, have been reviewed in detail with the patient and/or patient branch service representative(s) prior to discharge. This includes indication, common adverse reactions, drug interactions, and medication administration. Medication counseling has been employed using the teach-back method to ensure understanding. - Outcome: The patient and/or patient branch service representative(s) have demonstrated understanding of the medications. Additional comments: [] Thank you for allowing pharmacy to be involved in the care of this patient. Please call [phone] with any additional questions
--- NOTE | 2021-06-02 18:25 | Communication Note ---
Date of Service: May 25, 2021 I saw the patient with Dr. Livingston, please see their note for details. Resident Activity Tracking Resident Involvement: Resident Care Provided Care Provided: Adult ED
== END 2021-05-26 19:00 | disposition home or self-care (01) | DRG 65 ==
LOC: ED 07:04 → EDINP 12:16 → 2W 15:11

== ENCOUNTER 2022-02-20 20:59 | Inpatient (IN) ==
[2022-02-20] MEDS ORDERED: SODIUM CHLORIDE 0.9% 500 ML IV ONE (21:10)
[2022-02-20] MEDS ORDERED: ONDANSETRON INJ 2 MG/ML 2 ML VIAL IV STA (21:10)
[2022-02-20] MEDS ORDERED: GLUCAGON 0.5 ML IV ONE (21:10)
[2022-02-20] MEDS ORDERED: LORazepam 2 MG/1 ML VIAL IV STA (21:10)
--- NOTE | 2022-02-20 21:13 | Emergency Department Note ---
Impression & Plan Food impaction of esophagus ED Provider Note Name: ROBERTO TODD Age: 86 Sex: M Arrives Via: Walk-In Informant: Patient, ED Provider: Nando Trejo MD Chief Complaint: Difficulty swallowing Impression: Per impressions above Medical Decision Making: Pleasant 86-year-old gentleman with a history of hypertension, dyslipidemia, GERD CAD arrives for evaluation of difficulty swallowing. Patient swallowed chicken around noon today and it got stuck in his throat. He has been unable to swallow anything since then. He periodically has to spit up his secretions. While he is tolerating secretions he is unable to swallow them. Patient exam is benign other than he is uncomfortable and periodic spits up. Vitals are all right. EKG is unremarkable and chest x-ray is clear. Labs are unremarkable. He was given glucagon and Ativan IV without improvement. He was tested for COVID and is negative. I discussed the case with the on-call brakes inspector and they will take him to the OR. Given his age and planned procedure they did request hospitalist get involved as well. Prior Medical Record and Triage/Nursing Notes reviewed by Me Additional history obtained from chart Differentials:Esophageal foreign body, gastritis, esophagitis, airway obstruction, infectious etiology amongst other etiologies ascertained. Vital Signs: reviewed and remarkable for no significant abnormalities Interventions: Glucagon 0.5 mg IV, Ativan 0.5 mg, normal saline bolus IV Labs:Reviewed and remarkable for no significant abnormalities Imaging:X ray results are stated below per my interpretation: Chest: 1 view: No infiltrate, no effusion, normal cardiac border. EKG:Per My Interpretation: Indication Pre-op: This rhythm with a first-degree AV block and right bundle branch block. 70 bpm. QTc 460. When compared to EKG from May 25, 2021 there is no acute change. Consults:Dr Pozo Gastroenterology will take to endoscopy. Dr Rocio Bae Hospitalist Plan: Disposition:Hospitalization. Condition: Good History of Present Illness:86-year-old gentleman arrives for evaluation of difficulty swallowing. Patient notes he ate chicken around noon and has been unable to swallow since then. He notes he periodically has to spit up his secretions. He states he tried drinking some apple juice without improvement immediately had to vomited back up. He notes a dull feeling in the lower esophagus. He has no difficulty breathing but is concerned that he has to keep spitting up his secretions. He had no medications prior to arrival. This is never happened before. He has had an endoscopy before for his esophagitis and is on pantoprazole. He denies any falls, trauma, injuries. He denies any difficulty breathing, chest pain, fevers, abdominal pain, other concerning signs or symptoms. ROS: See above HPI for pertinent positives & negatives. A total of 10 systems reviewed and were otherwise negative. 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 Periodically spitting up secretions EYES: No scleral icterus, unremarkable pupils. ENT: Mucous membranes moist, no nasal congestion. NECK: No masses appreciated, nomeningismus, trachea is midline. RESPIRATORY: No dyspnea. Clear to auscultation and equal bilaterally. No wheeze, no rhonchi. CARDIOVASCULAR: Regular rate and rhythm.No murmurs, rubs, gallops appreciated. GASTROINTESTINAL: Abdomen soft, non-tender, no peritonitis.Bowel sounds positive.No masses appreciated. BACK: No midline tenderness, no CVA tenderness EXTREMITIES: Normal motion all extremities, no cyanosis, no edema. NEUROLOGIC: Alert and oriented, no acute motor or sensory deficits, no focal weakness, cranial nerves grossly intact. SKIN: No rash, no jaundice, no diaphoresis. PSYCH: Appropriate GCS: 15 ED Course: Times/Reassessments: Reevaluations of patient revealed no improvement in ability to swallow. He is agreeable to going to the ER and then hospitalization. He is breathing comfortably and in no significant distress on repeat evaluations Nando Trejo MD Past Med/Surg History Social History Smoking Status: Never smoker Hx Alcohol Use: No Hx Substance Use: No Preferred Language: Danish Communication Ability: Effective Mortician Helper Required: No Beliefs That Will Affect Care: None marital status: Current Living Situation: Spouse How many Children do You have: 3 Other Information That Helps Us Care for You: No Feels Safe at Home: Yes Safety Concerns: Feels Safe At This Time Assistive Devices: None Allergies Allergies Allergy/AdvReac Type Severity Reaction Status Date / Time thiamine (vitamin B1) Allergy Mild RASH Verified 02/20/22 23:27 Penicillins Allergy Unknown RASH Verified 02/20/22 23:27 soy Allergy Unknown SHAKY, Verified 02/20/22 23:27 CHILLS, BM Home Meds Home Medications Medication Instructions Recorded Confirmed doxazosin 4 mg tablet (Cardura) 8 mg PO HS 05/25/21 02/20/22 finasteride 5 mg tablet (Proscar) 5 mg PO DAILY 05/25/21 02/20/22 famotidine 20 mg tablet (Pepcid) 20 mg PO DAILY PRN Acid Reflux 02/20/22 02/20/22 fluticasone propionate 50 2 spray intranasal DAILY 02/20/22 02/20/22 mcg/actuation nasal spray,suspension vit C 250 mg-vit E 90 mg-zinc 40 1 tab PO AMHS 02/20/22 02/20/22 mg-copper 1 [id number] capsule (PreserVision AREDS-2) Previous Rx's Medication Instructions Recorded aspirin 81 mg tablet,delayed 81 mg PO QAM #30 tabs 05/26/21 release atorvastatin 40 mg tablet 40 mg PO QAM #30 tabs 05/26/21 pantoprazole 40 mg tablet,delayed 40 mg PO DAILY #30 tabs 02/21/22 release Results & Data (ED) Vital Signs Vital Signs - 24 hr 02/20/22 21:00 Temperature 36.2 C L Temperature Source Temporal Artery Scan Pulse Rate 85 Pulse Rhythm Regular Pulse Strength Normal Respiratory Rate 18 Respiratory Effort / Characteristics Non-Labored Spontaneous Respiratory Depth Normal Respiratory Pattern Regular Blood Pressure 116/65 Blood Pressure Mean 82 Blood Pressure Position Sitting Pulse Oximetry 96 Oxygen Delivery Method Room Air Sepsis Recent Fever Within 48 Hours No Sepsis New/Unexplained Change in Mental Status N/A Sepsis Action Taken by Nursing No Action Required Laboratory Data Result diagrams: 02/21/22 05:00 02/21/22 05:00 Lab Results 02/20/22 02/20/22 02/20/22 Range/Units 21:39 21:39 Unknown WBC 5.46 (4.8-10.8) K/ul RBC 4.07 L (4.63-6.08) M/uL Hgb 11.9 L (14.0-18.0) g/dl Hct 36.0 L (40.1-51.0) % MCV 88.5 (80.0-100.0) fL MCH 29.2 (25.0-34.0) pg MCHC 33.1 (32.0-36.0) g/dL RDW Std Deviation 42.9 (36.4-46.3) fL RDW Coeff of Flori 13.2 (11.5-14.5) % Plt Count 177 (130-400) K/uL MPV 11.9 (9.4-12.4) fL Immature Gran % (Auto) 0.2 % Neut % (Auto) 48.2 % Lymph % (Auto) 34.1 % [place] % (Auto) 12.3 % Eos % (Auto) 4.8 % Baso % (Auto) 0.4 % Neut # (Auto) 2.64 (1.4-6.5) K/uL Lymph # (Auto) 1.86 (1.2-3.4) K/uL [place] # (Auto) 0.67 (0.24-0.82) K/uL Eos # (Auto) 0.26 (0-0.50) K/uL Baso # (Auto) 0.02 (0-0.2) K/uL Immature Gran # (Auto) 0.01 (0.00-0.02) K/uL Sodium 141 (136-145) mmol/L Potassium 3.8 (3.5-5.1) mmol/L Chloride 110 H (98-107) mmol/L Carbon Dioxide 25 (21-32) mmol/L Anion Gap 6 (3-11) BUN 20 (6-23) mg/dl Creatinine 1.00 (0.6-1.4) mg/dl Est Cr Clr Drug Dosing 53.2 ml/min Est GFR ( Amer) 79.7 ml/min Est GFR (Non-Af Amer) 68.8 ml/min BUN/Creatinine Ratio 20.0 (10-20) Glucose 93 (70-99(Fasting)) mg/dl Calcium 7.8 L (8.5-10.1) mg/dl SARS-CoV-2, RNA, NAAT NEGATIVE (NEGATIVE) Administered Medications Discontinued Medications Fluticasone Propionate (Fluticasone Propionate Na Spr 16 Gm Btl) 2 sprays BENNETT DAILY RAHUL Stop: 03/23/22 08:59 Last Admin: 02/21/22 09:28 Dose: 2 sprays Documented By: DIMITRY Glucagon (Glucagen) 0.5 mls @ 0.5 mls/min IV ONE ONE Stop: 02/20/22 21:11 Last Admin: 02/20/22 21:39 Dose: 0.5 mls/min Documented By: BRENNON Sodium Chloride (Nss) 500 mls @ 999 mls/hr IV .Q31M ONE Stop: 02/20/22 21:40 Last Infusion: 02/20/22 22:51 Dose: 0 mls/hr Documented By: Admin: 02/20/22 21:40 Dose: 999 mls/hr Documented By: BRENNON Pantoprazole Sodium 40 mg/ (Syringe) 10 mls @ 5 mls/min IV BID RAHUL Stop: 03/23/22 00:14 Last Admin: 02/21/22 09:48 Dose: 5 mls/min Documented By: Admin: 02/21/22 02:21 Dose: 5 mls/min Documented By: UCHE Ciprofloxacin (Cipro / D5w) 400 mg in 200 mls @ 100 mls/hr IV Q12H RAHUL; Protocol Stop: 02/23/22 01:59 Last Infusion: 02/21/22 16:00 Dose: 0 mls/hr Documented By: Admin: 02/21/22 14:41 Dose: 100 mls/hr Documented By: Infusion: 02/21/22 04:30 Dose: 0 mls/hr Documented By: Admin: 02/21/22 02:22 Dose: 100 mls/hr Documented By: UCHE Dextrose/Sodium Chloride (D5w And Nss) 1,000 mls @ 100 mls/hr IV .Q10H RAHUL Stop: 03/23/22 01:18 Last Admin: 02/21/22 12:42 Dose: 100 mls/hr Documented By: Infusion: 02/21/22 11:38 Dose: 100 mls/hr Documented By: Admin: 02/21/22 01:38 Dose: 100 mls/hr Documented By: UCHE Lorazepam (Lorazepam 2 Mg/1 Ml Vial) 0.5 mg IV NOW STA; Protocol Stop: 02/20/22 21:11 Last Admin: 02/20/22 21:39 Dose: 0.5 mg Documented By: RDD Ondansetron HCl (Ondansetron Inj 2 Mg/Ml 2 Ml Vial) 4 mg IV NOW STA Stop: 02/20/22 21:11 Last Admin: 02/20/22 21:39 Dose: 4 mg Documented By: RDD Discharge Plan Visit Data Chief Complaint: Food Bolus Stated Complaint: FOOD STUCK IN THROAT ED Provider: Nando Trejo Discharge Problem: Food impaction of esophagus Patient Disposition: Admitted As Inpatient Condition: Good Discharge Instructions Interventions: ED Discharge Assessment Last Done: 02/20/22 23:18 : Food impaction of esophagus Qualifiers: Encounter type: initial encounter Qualified Code(s): T18.128A - Food in esophagus causing other injury, initial encounter
[2022-02-20 21:51] LABS: Basophils # (auto) 0.02 K/uL (0-0.2); Basophils % (auto) 0.4 %; Eosinophils # (auto) 0.26 K/uL (0-0.50); Eosinophils % (auto) 4.8 %; Hemoglobin 11.9 g/dl (14.0-18.0); Immature Granulocytes # (auto) 0.01 K/uL (0.00-0.02); Immature Granulocytes % (auto) 0.2 %; Lymphocytes # (auto) 1.86 K/uL (1.2-3.4); Lymphocytes % (auto) 34.1 %; Mean Corpuscular Hemoglobin 29.2 pg (25.0-34.0); Mean Corpuscular Hgb Conc 33.1 g/dL (32.0-36.0); Mean Corpuscular Volume 88.5 fL (80.0-100.0); Mean Platelet Volume 11.9 fL (9.4-12.4); Monocytes # (auto) 0.67 K/uL (0.24-0.82); Monocytes % (auto) 12.3 %; Neutrophils # (auto) 2.64 K/uL (1.4-6.5); Neutrophils % (auto) 48.2 %; Platelet Count 177 K/uL (130-400); RDW Coefficient of Variation 13.2 % (11.5-14.5); RDW Standard Deviation 42.9 fL (36.4-46.3); Red Blood Count 4.07 M/uL (4.63-6.08); White Blood Count 5.46 K/ul (4.8-10.8)
[2022-02-20 22:10] LABS: Calcium 7.8 mg/dl (8.5-10.1); Creatinine Clr Calc Pharmacy 53.2 ml/min; Est GFR (African American) 79.7 ml/min; Est GFR (Non-African American) 68.8 ml/min; Potassium 3.8 mmol/L (3.5-5.1)
[2022-02-20] MEDS ORDERED: PROPOFOL IV EMULSION 10 MG/ML 20 ML VIAL IV ONE (22:50)
[2022-02-20] MEDS ORDERED: fentaNYL citrate 100 MCG/2 ML VIAL ONE (22:50)
--- NOTE | 2022-02-20 23:21 | Anesthesiology Consultation ---
Date of Service February 20, 2022 Assessment & Plan ASA [id number] Proposed Anesthesia Anesthesia Type: General Risk / Benefits Reviewed With: PT / POA / Parent / Guardian, Accepts Plan and Informed Consent Obtained History Surgery Operation Date: 02/21/22 00:00 Proposed Procedures p Esophagogastroduodenoscopy - Tigre Pozo DO Height/Weight Height: 5 ft 8 in Weight: 80.2 kg Allergies Allergy/AdvReac Type Severity Reaction Status Date / Time thiamine (vitamin B1) Allergy Mild RASH Verified 02/20/22 23:27 Penicillins Allergy Unknown RASH Verified 02/20/22 23:27 soy Allergy Unknown SHAKY, Verified 02/20/22 23:27 CHILLS, BM Medications Home Medications Medication Instructions Recorded Confirmed Last Taken doxazosin 4 mg tablet (Cardura) 8 mg PO HS 05/25/21 05/25/21 05/24/21 finasteride 5 mg tablet (Proscar) 5 mg PO HS 05/25/21 05/25/21 05/24/21 aspirin 81 mg tablet,delayed 81 mg PO QAM #30 tabs 05/26/21 Unknown release atorvastatin 40 mg tablet 40 mg PO QAM #30 tabs 05/26/21 Unknown famotidine 20 mg tablet (Pepcid) 20 mg PO DAILY PRN Acid Reflux 02/20/22 02/20/22 Unknown fluticasone propionate 50 2 spray intranasal DAILY 02/20/22 02/20/22 Unknown mcg/actuation nasal spray,suspension pantoprazole 20 mg tablet,delayed 20 mg PO DAILY PRN Acid Reflux 02/20/22 02/20/22 Unknown release vit C 250 mg-vit E 90 mg-zinc 40 1 tab PO AMHS 02/20/22 02/20/22 Unknown mg-copper 1 [id number] capsule (PreserVision AREDS-2) NPO Date Last Intake of Fluids: 02/20/22 Time Last Intake of Fluids: 20:00 Date Last Intake of Solids: 02/20/22 Time Last Intake of Solids: 12:00 Exercise / Class Metabolic Activity II 4-5 Yardwork/Stairs/Walk up hill Past Anesthesia History No Hx of Anesthesia Complications and No Family Hx of Anesthesia Complications History of PONV No Hx of PONV and No Hx of Motion Sickness Social History Smoking Status: Never smoker Hx Alcohol Use: No Hx Substance Use: No Review of Systems denies fever/cough/ colds/ chest pain/ SOB/ LORELEI denies LORELEI Physical Exam Vital Signs Last Vital Signs Temp 36.2 C L 02/20/22 21:00 Pulse 65 02/20/22 23:17 Resp 18 02/20/22 23:17 BP 138/78 02/20/22 23:17 Pulse Ox 95 02/20/22 23:17 O2 Del Method 02/20/22 23:17 ENMT Mouth: no TMJ abnormality and no dentition abnormality Thyromental Distance: > or= 3.5 Finger Breadths Mallampati Class: II Neck neck extension not limited Respiratory normal respiratory effort; no respiratory distress Auscultation: lungs clear to auscultation bilaterally Cardiovascular Rate/Rhythm: regular rate and regular rhythm Neurologic moves all extremities Psychiatric Orientation: alert and oriented x 3 Testing Laboratory Results 02/20/22 21:39 02/20/22 21:39
[2022-02-20] MEDS ORDERED: ATROPINE SULFATE 0.1 MG/ML 10ML SYR IV PRN (23:29)
[2022-02-20] MEDS ORDERED: fentaNYL citrate 100 MCG/2 ML VIAL IV PRN (23:29)
[2022-02-20] MEDS ORDERED: ePHEDrine sulfate 50 MG/ML AMP IV PRN (23:29)
[2022-02-20] MEDS ORDERED: ONDANSETRON INJ 2 MG/ML 2 ML VIAL IV PRN (23:29)
--- NOTE | 2022-02-20 23:29 | Gastrointestinal Consultation ---
Date of Consultation February 20, 2022 Assessment & Plan (1) Food impaction of esophagus: Patient presents with esophageal food impaction. We are planning to do upper endoscopy for disimpaction this evening. We have discussed the risks and benefits to include bleeding infection perforation pain and need for follow-up endoscopic examinations. Plan is to have the patient admitted to internal medicine for observation overnight afterward. History of Present Illness Reason for Consultation: Food impaction Attending Physician: The patient presented to the emergency room this evening for a food impaction. This occurred around lunchtime today and the patient notes that the food impaction just has not passed. This is similar problem has happened several times in the past and he underwent an upper endoscopy with one of my partners a few months ago but did not have a dilation performed at that time. The patient denies having any chest pain or shortness of breath at the present time. His past medical history is notable for heart disease in addition to a prior stroke. Allergies Allergy/AdvReac Type Severity Reaction Status Date / Time thiamine (vitamin B1) Allergy Mild RASH Verified 02/20/22 23:27 Penicillins Allergy Unknown RASH Verified 02/20/22 23:27 soy Allergy Unknown SHAKY, Verified 02/20/22 23:27 CHILLS, BM Home Medications Medication Instructions Recorded Confirmed Type doxazosin 4 mg tablet (Cardura) 8 mg PO HS 05/25/21 05/25/21 History finasteride 5 mg tablet (Proscar) 5 mg PO HS 05/25/21 05/25/21 History aspirin 81 mg tablet,delayed 81 mg PO QAM #30 tabs 05/26/21 Rx release atorvastatin 40 mg tablet 40 mg PO QAM #30 tabs 05/26/21 Rx famotidine 20 mg tablet (Pepcid) 20 mg PO DAILY PRN Acid Reflux 02/20/22 02/20/22 History fluticasone propionate 50 2 spray intranasal DAILY 02/20/22 02/20/22 History mcg/actuation nasal spray,suspension pantoprazole 20 mg tablet,delayed 20 mg PO DAILY PRN Acid Reflux 02/20/22 02/20/22 History release vit C 250 mg-vit E 90 mg-zinc 40 1 tab PO AMHS 02/20/22 02/20/22 History mg-copper 1 [id number] capsule (PreserVision AREDS-2) Patient History Social History Smoking Status: Never smoker Hx Alcohol Use: No Hx Substance Use: No Preferred Language: Paraguayan Communication Ability: Effective Beliefs That Will Affect Care: None marital status: Current Living Situation: Spouse How many Children do You have: 3 Feels Safe at Home: Yes Assistive Devices: None Review of Systems Constitutional: no fever, no sweats and no malaise Eyes: no diplopia Ear, Nose, Mouth, Throat: no ear pain and no ear trauma Respiratory: no cough, no change in sputum and no dyspnea Cardiovascular: no chest pain and no chest pain at rest Gastrointestinal: no bloating, no early satiety and no nausea Genitourinary: no urinary frequency Musculoskeletal: no back pain and no radicular pain Integumentary: no skin ulcer Neurologic: no falls Psychiatric: no hopelessness Endocrine: no polydipsia Physical Exam Constitutional: WD/WN, vitals as above Eyes: PERRL, conjunctivae normal, anicteric sclerae ENMT: external ear and nose normal, oropharynx normal Neck: trachea midline, no thyromegaly Respiratory: Auscultation: no diminished lung sounds, no crackles and no rales Cardiovascular: Heart Sounds: + murmur Gastrointestinal (Abdomen): Percussion/Palpation: abdomen soft; abdomen nontender, no guarding and abdomen not rigid Results & Data ([facility]) Vital Signs (Past 12 Hours) Vital Signs Temp Pulse Pulse Resp BP BP Pulse Ox 02/20/22 23:17 65 18 138/78 95 02/20/22 20:59 64 18 124/71 94 02/20/22 21:00 36.2 C L 85 18 116/65 96 O2 Del Method 02/20/22 23:17 Room Air 02/20/22 20:59 Room Air 02/20/22 21:00 Room Air Laboratory Results Laboratory Results - last 24 hr 02/20/22 02/20/22 02/20/22 21:39 21:39 Unknown WBC 5.46 RBC 4.07 L Hgb 11.9 L Hct 36.0 L MCV 88.5 MCH 29.2 MCHC 33.1 RDW Std Deviation 42.9 RDW Coeff of Flori 13.2 Plt Count 177 MPV 11.9 Immature Gran % (Auto) 0.2 Neut % (Auto) 48.2 Lymph % (Auto) 34.1 [place] % (Auto) 12.3 Eos % (Auto) 4.8 Baso % (Auto) 0.4 Neut # (Auto) 2.64 Lymph # (Auto) 1.86 [place] # (Auto) 0.67 Eos # (Auto) 0.26 Baso # (Auto) 0.02 Immature Gran # (Auto) 0.01 Sodium 141 Potassium 3.8 Chloride 110 H Carbon Dioxide 25 Anion Gap 6 BUN 20 Creatinine 1.00 Est Cr Clr Drug Dosing 53.2 Est GFR ( Amer) 79.7 Est GFR (Non-Af Amer) 68.8 BUN/Creatinine Ratio 20.0 Glucose 93 Calcium 7.8 L SARS-CoV-2, RNA, NAAT NEGATIVE (1) Food impaction of esophagus Encounter type: initial encounter Qualified Code(s): T18.128A - Food in esophagus causing other injury, initial encounter
--- NOTE | 2022-02-20 23:55 | Post Operative Brief Note ---
Immediate Post Op Note v1 Date of Surgery February 20, 2022 Pre & Post Diagnosis Operation Date: 02/21/22 00:00 Pre-Op Diagnosis: Food impaction of esophagus Post-Op Diagnosis: Food impaction of esophagus, esopahgeal ischemia and a bleeding ulceration from prior bolus impactioin I identified the patient and participated in the time-out.: Yes Procedure Operation Date: 02/21/22 00:00 Actual Procedures p Esophagogastroduodenoscopy, Food Bolus Removal - Tigre Pozo DO Surgeon Tigre Pozo DO Base Manager none Estimated Blood Loss 0 Findings Consistent with Post-Op Diagnosis
--- NOTE | 2022-02-21 00:01 | Communication Note ---
Date of Service: February 20, 2022 The patient underwent urgent upper endoscopy this evening for removal of a impacted food bolus. The impaction had occurred around lunchtime today. Upon removal of the food bolus 2 large rents were noted in the distal esophagus with surrounding ischemia. This was treated with placement of 5 endoscopic clips Recommendations N.p.o. tonight Empiric broad-spectrum antibiotics please Protonix 40 mg IV twice daily Swallowing study in a.m.
--- NOTE | 2022-02-21 00:01 | GI REPORT ---
Patient Name: Mauricio Jalloh Procedure Date: 02/20/2022 11:37 PM Date of : 1935 Admit Type: Emergency Department Age: 86 Gender: Male Attending MD: Tigre Pozo DO Procedure: Upper GI endoscopy Providers: Tigre Pozo DO Referring MD: Nando White Indications: Dysphagia Medicines: Monitored Anesthesia Care Complications: Hemorrhage Estimated Blood Loss: Estimated blood loss: none. Procedure: Pre-Anesthesia Assessment: - Prior to the procedure, a History and Physical was performed, and patient medications, allergies and sensitivities were reviewed. The patient's tolerance of previous anesthesia was reviewed. - The risks and benefits of the procedure and the sedation options and risks were discussed with the patient. All questions were answered and informed consent was obtained. - Patient identification and proposed procedure were verified prior to the procedure by the physician, the nurse and the linen attendant. The procedure was verified in the pre-procedure area in the procedure room. - Pre-procedure physical examination revealed no contraindications to sedation. - ASA Grade Assessment: III - A patient with severe systemic disease. - After reviewing the risks and benefits, the patient was deemed in satisfactory condition to undergo the procedure. - The anesthesia plan was to use monitored anesthesia care (MAC). - Immediately prior to administration of medications, the patient was re-assessed for adequacy to receive sedatives. - The heart rate, respiratory rate, oxygen saturations, blood pressure, adequacy of pulmonary ventilation, and response to care were monitored throughout the procedure. - The physical status of the patient was re-assessed after the procedure. After obtaining informed consent, the endoscope was passed under direct vision. Throughout the procedure, the patient's blood pressure, pulse, and oxygen saturations were monitored continuously. The Endoscope was introduced through the mouth, and advanced to the antrum of the stomach. The upper GI endoscopy was accomplished without difficulty. The patient tolerated the procedure well. Findings: Food was found in the lower third of the esophagus. Removal of food was accomplished. The mucosa of the distal esophagus was notable for ischemia and deep ulceration as described below. Two deep cratered esophageal ulcers/rents actively bleeding were found at the gastroesophageal junction. For hemostasis, five hemostatic clips were successfully placed (MR conditional, Cook Instinct). There was no bleeding at the end of the procedure. A moderate Schatzki ring was found at the gastroesophageal junction. The entire examined stomach was normal. A medium-sized hiatal hernia was found. Impression: - Food in the lower third of the esophagus. Removal was successful. - Esophageal ulcers actively bleeding. Clips (MR conditional) were placed. - Moderate Schatzki ring. - Normal stomach. - Medium-sized hiatal hernia. Recommendation: - Observe patient in same day observation unit for observation. - Perform a video esophagram tomorrow. - NPO this evening Tigre Pozo D.O. Tigre Pozo, 02/21/2022 12:00:33 AM This report has been signed electronically. Note Initiated On: 02/20/2022 11:37 PM Number of Addenda: 0 I attest to the content of the Intraoperative Record and orders documented therein, exceptions below {[id number]}
--- NOTE | 2022-02-21 00:14 | Anesthesiology Progress Note ---
Date of Service February 21, 2022 Anesthesia Post Procedure Vital Signs Vital Signs: Temp Pulse Pulse Resp BP BP BP 02/21/22 00:04 36.6 C 63 15 134/77 02/20/22 23:17 65 18 138/78 02/20/22 20:59 64 18 124/71 02/20/22 21:00 36.2 C L 85 18 116/65 Pulse Ox O2 Del Method 02/21/22 00:04 98 Room Air 02/20/22 23:17 95 Room Air 02/20/22 20:59 94 Room Air 02/20/22 21:00 96 Room Air Transfer of Care Handoff Completed per policy Notes Mental Status: alert / awake / arousable and participated in evaluation Patient Amnestic to Procedure: Yes Nausea / Vomiting: adequately controlled Pain: adequately controlled Airway Patency, RR, SpO2: stable & adequate BP & HR: stable & adequate Hydration State: stable & adequate Anesthetic Complications: no major complications apparent and Pt Satisfied with anesthetic care
[2022-02-21] MEDS ORDERED: NITROGLYCERIN SL 0.4 MG/TAB TAB SL PRN (01:19)
[2022-02-21] MEDS ORDERED: ACETAMINOPHEN 325 MG TAB PO PRN (01:19)
[2022-02-21] MEDS ORDERED: ONDANSETRON INJ 2 MG/ML 2 ML VIAL IV PRN (01:19)
[2022-02-21] MEDS: D5W AND NSS 1,000 ML IV SCH ×2 (01:38→12:42)
[2022-02-21] MEDS: PANTOprazole 40 MG in SYRINGE 0 ML IV SCH ×2 (02:21→09:48)
[2022-02-21] MEDS: CIPROFLOXACIN / D5W 400 MG/200 ML BAG IV SCH ×2 (02:22→14:41)
--- NOTE | 2022-02-21 02:55 | History and Physical Report ---
DATE OF ADMISSION: 02/21/2022. CHIEF COMPLAINT: Food bolus. HISTORY OF PRESENT ILLNESS: This is an 86-year-old male with past medical history significant for hypercholesterolemia, history of SVT, history of CVA, history of Schatzki ring, BPH, osteoarthritis, monoclonal paraproteinemia, history of small-bowel obstruction, history of colonic polyps, who presents with food bolus. The patient was eating chicken and after one bite of chicken it stuck in his throat. He came to the ER. Status post EGD and removal of impacted food bolus. It looks like upon removal of the food bolus, two large rents were noted in the distal esophagus with surrounding ischemia. This was treated with placement of 5 endoscopic clips. GI recommended to keep n.p.o. tonight and empiric broad-spectrum antibiotics were given, Protonix 40 IV b.i.d., and swallow study in the a.m. To monitor in the hospital. Currently, the patient is resting comfortably and hemodynamically stable. He says he is feeling better. Denies any chest pain, no shortness of breath, no cough, no nausea, no abdominal pain, no headache. Vision is okay. Somewhat hard of hearing. No runny nose, no sore throat. The patient says he had his esophagus dilated a couple of times in the past. No swelling in the legs. Normal bowel and bladder movements. He ambulates okay. He lives with his . ALLERGIES: VITAMIN B1, PENICILLINS, SOYA. PAST MEDICAL HISTORY: As mentioned above. PAST SURGICAL HISTORY: Right rotator cuff arthroscopy, colonoscopy, EGD, exploratory laparotomy with lysis of adhesions, enterolysis of intestine, removal of the mass of the left neck, appendectomy, enterectomy with small bowel resection, bilateral cataract surgery, cholecystectomy, right shoulder arthroscopy. MEDICATIONS: The patient is on aspirin 81 mg p.o. daily, atorvastatin 40 mg p.o. p.m., Cardura 8 mg p.o. at bedtime, Pepcid 20 mg p.o. daily p.r.n., finasteride 5 mg p.o. daily, Flonase 2 sprays intranasal daily, Protonix 20 mg p.o. daily p.r.n., PreserVision AREDS 2 one tablet p.o. b.i.d. FAMILY HISTORY: Significant for father has heart disorder. SOCIAL HISTORY: . No smoking. Alcohol occasional. No drug use. REVIEW OF SYSTEMS: As per HPI. Rest of review of systems is negative. PHYSICAL EXAMINATION: GENERAL: The patient is old and frail, not in acute distress. VITAL SIGNS: Temperature 36.5, pulse 62, respiratory rate 18, blood pressure 146/77, oxygen 98% on room air. HEENT: Extraocular muscles intact. Atraumatic. No facial droop. NECK: No JVD or neck masses. CARDIOVASCULAR: S1 and S2 heard. Regular rate and rhythm. No murmur, no gallop. RESPIRATORY SYSTEM: Normal AP diameter. No accessory muscle use. No wheezing, no crackles. ABDOMEN: Soft, bowel sounds present, nontender, no distention. CENTRAL NERVOUS SYSTEM: Alert and awake. Speech is clear. No facial droop. Insight is okay. Obeys simple commands. Moves extremities. EXTREMITIES: No edema, no erythema. LABORATORY DATA: WBC 5.4, hemoglobin 11.9, hematocrit 36, platelets 177. Sodium 141, potassium 3.8, chloride 110, bicarbonate 25, BUN 20, creatinine 1, serum glucose 93, calcium 7.8. SARS-CoV-2 rapid test negative. IMAGING DATA: Chest x-ray, no acute findings. EKG: Sinus rhythm with first-degree AV block at a rate of 70. No significant change was found. Right bundle-branch block. ASSESSMENT AND PLAN: This is an 86-year-old male who presents with food bolus. 1. Food bolus: He is status post EGD and removal of the impacted food bolus and upon removal of the food bolus, there were found to be two large rents noted in the distal esophagus with surrounding ischemia. He was treated with placement of 5 endoscopic clips. GI recommends to keep n.p.o. tonight and start on empiric antibiotics with ciprofloxacin, Protonix 40 mg IV b.i.d. There is a plan for swallow study in the a.m. Will admit to [facility] and monitor. 2. Hyperlipidemia: Whenever able to take p.o., can give his atorvastatin. 3. Benign prostatic hypertrophy: Cardura whenever he is able to take p.o. and also Proscar. 4. History of supraventricular tachycardia: Will monitor. 5. History of cerebrovascular accident: On aspirin and statin, which will restart whenever he is able to take p.o. 6. Hypocalcemia? follow repeat levels and vit d levels. 7. Deep venous thrombosis prophylaxis: Sequential compression devices for now. DISPOSITION: Closely monitor in the med tele. PT/OT prior to discharge. Social service to help with discharge planning. Job ID: [id number] MTDMary
[2022-02-21 05:13] LABS: Basophils # (auto) 0.02 K/uL (0-0.2); Basophils % (auto) 0.3 %; Eosinophils # (auto) 0.26 K/uL (0-0.50); Eosinophils % (auto) 3.5 %; Hematocrit (blood only) 36.5 % (40.1-51.0); Hemoglobin 11.6 g/dl (14.0-18.0); Immature Granulocytes # (auto) 0.01 K/uL (0.00-0.02); Immature Granulocytes % (auto) 0.1 %; Lymphocytes % (auto) 17.6 %; Mean Corpuscular Hgb Conc 31.8 g/dL (32.0-36.0); Mean Corpuscular Volume 91.3 fL (80.0-100.0); Mean Platelet Volume 11.7 fL (9.4-12.4); Monocytes # (auto) 0.63 K/uL (0.24-0.82); Monocytes % (auto) 8.5 %; Neutrophils # (auto) 5.17 K/uL (1.4-6.5); Platelet Count 168 K/uL (130-400); RDW Coefficient of Variation 13.1 % (11.5-14.5); RDW Standard Deviation 43.5 fL (36.4-46.3); White Blood Count 7.39 K/ul (4.8-10.8)
[2022-02-21 05:31] LABS: BUN Creatinine Ratio 18.4 (10-20); Calcium 7.5 mg/dl (8.5-10.1); Creatinine Clr Calc Pharmacy 61.1 ml/min; Est GFR (African American) 91.9 ml/min; Est GFR (Non-African American) 79.3 ml/min; Magnesium 1.8 mg/dl (1.7-2.4)
--- NOTE | 2022-02-21 07:11 | XRay Report ---
XR chest 1V portable CLINICAL HISTORY: food bolus. Evaluate cardiopulmonary status COMPARISON STUDY: 05/25/2021 TECHNIQUE: 1 view of the chest FINDINGS: Single frontal view of the chest demonstrates the cardiomediastinal silhouette to be within normal li mits. The lungs are clear of alveolar opacities. There is no evidence for pleural effusion. There is no evidence for vascular congestion. There is no acute osseous pathology. No radiopaque is identified on these frontal radiographs. IMPRESSION: 1. No acute cardiopulmonary disease. ACT 112: Negative or not required by law. Electronically signed by: Schuyler Cervantes M.D. 02/21/2022 7:09 AM
--- NOTE | 2022-02-21 07:54 | Hospitalist Progress Note ---
Date of Service February 21, 2022 Assessment & Plan (1) Food impaction of esophagus: Plan: This is an 86-year-old male who presents with food bolus. 1. Food bolus: He is status post EGD and removal of the impacted food bolus and upon removal of the food bolus, there were found to be two large rents noted in the distal esophagus with surrounding ischemia. He was treated with placement of 5 endoscopic clips. GI recommends NPO, empiric antibiotics with ciprofloxacin, Protonix 40 mg IV b.i.d. There is a plan for swallow study in the a.m. EGD Findings: Food was found in the lower third of the esophagus. Removal of food was accomplished. The mucosa of the distal esophagus was notable for ischemia and deep ulceration as described below. Two deep cratered esophageal ulcers/rents actively bleeding were found at the gastroesophageal junction. For hemostasis, five hemostatic clips were successfully placed (MR conditional, [employer]). There was no bleeding at the end of the procedure. A moderate Schatzki ring was found at the gastroesophageal junction. The entire examined stomach was normal. A medium-sized hiatal hernia was found. Impression: - Food in the lower third of the esophagus. Removal was successful. - Esophageal ulcers actively bleeding. Clips (MR conditional) were placed. - Moderate Schatzki ring. - Normal stomach. - Medium-sized hiatal hernia. Recommendation: - Observe patient in same day observation unit for observation. - Perform a video esophagram tomorrow. - NPO this evening 02/21/22 Per GI - food in the lower third of the esophagus w/ successful removal, esophageal ulcers actively bleeding, clipped. UGI series this AM without extravasation of contrast at the gastroesophageal junction. Ok to advance to full liquid diet today and continued for a total of three days After three days, can advance to mechanical soft diet until next EGD is completed EGD in 4 weeks for repeat evaluation Send home with PO Pantoprazole 40 mg once daily 2. Hyperlipidemia: Whenever able to take p.o., can give his atorvastatin. 3. Benign prostatic hypertrophy: Cardura whenever he is able to take p.o. and also Proscar. 4. History of supraventricular tachycardia: Will monitor. 5. History of cerebrovascular accident: On aspirin and statin, which will restart whenever he is able to take p.o. 6. Hypocalcemia? - normal level this AM DVT prophylaxis: Sequential compression devices for now. DISPOSITION:Plan to DC home Admission and Anticipated Discharge Date Admission Date: February 21, 2022 Subjective Patient seen in follow-up status post removal of food bolus Patient seen by GI s/p faraz mendoza today Currently laying in bed, in no acute distress Tolerates full liquid diet No fevers, chills, chest pain, shortness of breath, abdominal pain, nausea vomiting Patient's at the bedside, updated Review of Systems Review of Systems: All systems reviewed & are unremarkable except as noted in Subjective Physical Exam Physical Exam: GENERAL: The patient is old and frail, not in acute distress. HEENT: Extraocular muscles intact. Atraumatic. No facial droop. NECK: No JVD or neck masses. CARDIOVASCULAR: S1 and S2 heard. Regular rate and rhythm. No murmur, no gallop. RESPIRATORY SYSTEM: Normal AP diameter. No accessory muscle use. No wheezing, no crackles. ABDOMEN: Soft, bowel sounds present, nontender, no distention. CENTRAL NERVOUS SYSTEM: Alert and awake. Speech is clear. No facial droop. Insight is okay. Obeys simple commands. Moves extremities. EXTREMITIES: No edema, no erythema. Results & Data Results & Data ([facility]) Vital Signs (Past 12 Hours) Vital Signs Temp Pulse Pulse Resp BP BP BP 02/21/22 02:49 62 02/21/22 02:40 65 18 02/21/22 02:30 63 13 02/21/22 02:20 62 13 02/21/22 02:10 63 15 02/21/22 02:00 66 15 02/21/22 01:50 65 13 02/21/22 01:40 63 10 L 02/21/22 01:30 64 12 02/21/22 01:20 65 10 L 02/21/22 01:17 66 15 02/20/22 23:00 69 18 02/20/22 23:00 144/78 H 02/20/22 22:50 64 14 02/20/22 22:40 65 13 02/20/22 22:30 67 15 02/20/22 22:30 124/71 02/20/22 22:20 66 15 02/20/22 22:10 71 15 02/20/22 22:00 67 12 02/20/22 22:00 138/80 07/19/22 21:50 70 12 02/20/22 21:40 71 23 02/20/22 21:30 71 20 02/20/22 21:20 83 13 02/20/22 21:19 80 16 02/21/22 01:19 36.5 C 62 16 153/75 H 02/21/22 00:44 36.5 C 62 18 146/77 H 02/21/22 00:34 36.6 C 61 14 152/81 H 02/21/22 00:24 36.5 C 60 12 145/77 H 02/21/22 00:14 36.7 C 61 18 146/73 H 02/21/22 00:04 36.6 C 63 15 134/77 02/20/22 23:17 65 18 138/78 02/20/22 20:59 64 18 124/71 02/20/22 21:00 36.2 C L 85 18 116/65 Pulse Ox O2 Del Method 02/21/22 02:49 02/21/22 02:40 94 02/21/22 02:30 92 02/21/22 02:20 93 02/21/22 02:10 94 02/21/22 02:00 93 02/21/22 01:50 91 02/21/22 01:40 96 02/21/22 01:30 97 02/21/22 01:20 98 02/21/22 01:17 98 02/20/22 23:00 93 02/20/22 23:00 02/20/22 22:50 95 02/20/22 22:40 95 02/20/22 22:30 02/20/22 22:30 02/20/22 22:20 97 02/20/22 22:10 97 02/20/22 22:00 94 02/20/22 22:00 02/20/22 21:50 97 02/20/22 21:40 02/20/22 21:30 97 02/20/22 21:20 97 02/20/22 21:19 96 02/21/22 01:19 98 Room Air 02/21/22 00:44 98 Room Air 02/21/22 00:34 96 Room Air 02/21/22 00:24 97 Room Air 02/21/22 00:14 97 Room Air 02/21/22 00:04 98 Room Air 07/19/22 23:17 95 Room Air 02/20/22 20:59 94 Room Air 02/20/22 21:00 96 Room Air Laboratory Results 02/21/22 02/21/22 02/21/22 Range/Units Unknown 07:14 05:00 WBC (4.8-10.8) K/ul RBC (4.63-6.08) M/uL Hgb (14.0-18.0) g/dl Hct (40.1-51.0) % MCV (80.0-100.0) fL MCH (25.0-34.0) pg MCHC (32.0-36.0) g/dL RDW Std Deviation (36.4-46.3) fL RDW Coeff of Flori (11.5-14.5) % Plt Count (130-400) K/uL MPV (9.4-12.4) fL Immature Gran % (Auto) % Neut % (Auto) % Lymph % (Auto) % [place] % (Auto) % Eos % (Auto) % Baso % (Auto) % Neut # (Auto) (1.4-6.5) K/uL Lymph # (Auto) (1.2-3.4) K/uL [place] # (Auto) (0.24-0.82) K/uL Eos # (Auto) (0-0.50) K/uL Baso # (Auto) (0-0.2) K/uL Immature Gran # (Auto) (0.00-0.02) K/uL Sodium 141 (136-145) mmol/L Potassium 4.0 (3.5-5.1) mmol/L Chloride 111 H (98-107) mmol/L Carbon Dioxide 28 (21-32) mmol/L Anion Gap 2 L (3-11) BUN 16 (6-23) mg/dl Creatinine 0.87 (0.6-1.4) mg/dl Est Cr Clr Drug Dosing 61.1 ml/min Est GFR ( Amer) 91.9 ml/min Est GFR (Non-Af Amer) 79.3 ml/min BUN/Creatinine Ratio 18.4 (10-20) Glucose 119 H (70-99(Fasting)) mg/dl Calcium 7.5 L (8.5-10.1) mg/dl Magnesium 1.8 (1.7-2.4) mg/dl 25-OH Vitamin D Total Pending Nasal Screen MRSA (PCR) Negative (Negative) SARS-CoV-2, RNA, NAAT (NEGATIVE) 02/21/22 02/20/22 02/20/22 Range/Units 05:00 Unknown 21:39 WBC 7.39 (4.8-10.8) K/ul RBC 4.00 L (4.63-6.08) M/uL Hgb 11.6 L (14.0-18.0) g/dl Hct 36.5 L (40.1-51.0) % MCV 91.3 (80.0-100.0) fL MCH 29.0 (25.0-34.0) pg MCHC 31.8 L (32.0-36.0) g/dL RDW Std Deviation 43.5 (36.4-46.3) fL RDW Coeff of Flori 13.1 (11.5-14.5) % Plt Count 168 (130-400) K/uL MPV 11.7 (9.4-12.4) fL Immature Gran % (Auto) 0.1 % Neut % (Auto) 70.0 % Lymph % (Auto) 17.6 % [place] % (Auto) 8.5 % Eos % (Auto) 3.5 % Baso % (Auto) 0.3 % Neut # (Auto) 5.17 (1.4-6.5) K/uL Lymph # (Auto) 1.30 (1.2-3.4) K/uL [place] # (Auto) 0.63 (0.24-0.82) K/uL Eos # (Auto) 0.26 (0-0.50) K/uL Baso # (Auto) 0.02 (0-0.2) K/uL Immature Gran # (Auto) 0.01 (0.00-0.02) K/uL Sodium 141 (136-145) mmol/L Potassium 3.8 (3.5-5.1) mmol/L Chloride 110 H (98-107) mmol/L Carbon Dioxide 25 (21-32) mmol/L Anion Gap 6 (3-11) BUN 20 (6-23) mg/dl Creatinine 1.00 (0.6-1.4) mg/dl Est Cr Clr Drug Dosing 53.2 ml/min Est GFR ( Amer) 79.7 ml/min Est GFR (Non-Af Amer) 68.8 ml/min BUN/Creatinine Ratio 20.0 (10-20) Glucose 93 (70-99(Fasting)) mg/dl Calcium 7.8 L (8.5-10.1) mg/dl Magnesium (1.7-2.4) mg/dl 25-OH Vitamin D Total Nasal Screen MRSA (PCR) (Negative) SARS-CoV-2, RNA, NAAT NEGATIVE (NEGATIVE) 02/20/22 Range/Units 21:39 WBC 5.46 (4.8-10.8) K/ul RBC 4.07 L (4.63-6.08) M/uL Hgb 11.9 L (14.0-18.0) g/dl Hct 36.0 L (40.1-51.0) % MCV 88.5 (80.0-100.0) fL MCH 29.2 (25.0-34.0) pg MCHC 33.1 (32.0-36.0) g/dL RDW Std Deviation 42.9 (36.4-46.3) fL RDW Coeff of Flori 13.2 (11.5-14.5) % Plt Count 177 (130-400) K/uL MPV 11.9 (9.4-12.4) fL Immature Gran % (Auto) 0.2 % Neut % (Auto) 48.2 % Lymph % (Auto) 34.1 % [place] % (Auto) 12.3 % Eos % (Auto) 4.8 % Baso % (Auto) 0.4 % Neut # (Auto) 2.64 (1.4-6.5) K/uL Lymph # (Auto) 1.86 (1.2-3.4) K/uL [place] # (Auto) 0.67 (0.24-0.82) K/uL Eos # (Auto) 0.26 (0-0.50) K/uL Baso # (Auto) 0.02 (0-0.2) K/uL Immature Gran # (Auto) 0.01 (0.00-0.02) K/uL Sodium (136-145) mmol/L Potassium (3.5-5.1) mmol/L Chloride (98-107) mmol/L Carbon Dioxide (21-32) mmol/L Anion Gap (3-11) BUN (6-23) mg/dl Creatinine (0.6-1.4) mg/dl Est Cr Clr Drug Dosing ml/min Est GFR ( Amer) ml/min Est GFR (Non-Af Amer) ml/min BUN/Creatinine Ratio (10-20) Glucose (70-99(Fasting)) mg/dl Calcium (8.5-10.1) mg/dl Magnesium (1.7-2.4) mg/dl 25-OH Vitamin D Total Nasal Screen MRSA (PCR) (Negative) SARS-CoV-2, RNA, NAAT (NEGATIVE) Medications Administered Current Inpatient Medications Acetaminophen (Acetaminophen 325 Mg Tab) 650 mg PO Q4H PRN PRN Reason: Pain or Fever Stop: 03/23/22 01:18 Atorvastatin Calcium (Atorvastatin 40 Mg Tab) 40 mg PO QAM RAHUL Stop: 03/23/22 08:59 Doxazosin Mesylate (Doxazosin Mesylate 4 Mg Tab) 8 mg PO HS RAHUL Stop: 03/23/22 20:59 Finasteride (Finasteride 5 Mg Tab) 5 mg PO DAILY RAHUL Stop: 03/23/22 08:59 Fluticasone Propionate (Fluticasone Propionate Na Spr 16 Gm Btl) 2 sprays BENNETT DAILY RAHUL Stop: 03/23/22 08:59 Pantoprazole Sodium 40 mg/ (Syringe) 10 mls @ 5 mls/min IV BID RAHUL Stop: 03/23/22 00:14 Last Admin: 02/21/22 02:21 Dose: 5 mls/min Ciprofloxacin (Cipro / D5w) 400 mg in 200 mls @ 100 mls/hr IV Q12H [facility]; Protocol Stop: 02/23/22 01:59 Last Infusion: 02/21/22 04:30 Dose: Infused Dextrose/Sodium Chloride (D5w And Nss) 1,000 mls @ 100 mls/hr IV .Q10H RAHUL Stop: 03/23/22 01:18 Last Admin: 02/21/22 01:38 Dose: 100 mls/hr Nitroglycerin (Nitroglycerin Sl 0.4 Mg/Tab Tab) 0.4 mg SL UD PRN PRN Reason: Chest Pain Stop: 03/23/22 01:18 Ondansetron HCl (Ondansetron Inj 2 Mg/Ml 2 Ml Vial) 4 mg IV Q6H PRN PRN Reason: Nausea Stop: 03/23/22 01:18 (1) Food impaction of esophagus Encounter type: initial encounter Qualified Code(s): T18.128A - Food in esophagus causing other injury, initial encounter
--- NOTE | 2022-02-21 08:22 | Fluoroscopy Report ---
FL upper GI series wo air CLINICAL HISTORY: history of a food impaction, eval for extravasation of contrast status post removal of food bolus. COMPARISON STUDY: None. FINDINGS: Total fluoroscopy time was 1.6 minutes. 9 fluoroscopic spot images of the chest were obtain ed. The patient swallowed water-soluble contrast without difficulty. There are surgical clips near th e gastroesophageal junction. No transition of contrast to suggest a leak. The esophagus is normal and course and caliber. IMPRESSION: No extravasation of contrast at the gastroesophageal junction to suggest a leak. ACT 112: Negative or not required by law. Electronically signed by: Amauri Clark M.D. 02/21/2022 8:20 AM
[2022-02-21] MEDS ORDERED: CALCIUM 600MG + VIT D 400 IU TAB PO SCH (09:00)
[2022-02-21] MEDS ORDERED: FINASTERIDE 5 MG TAB PO SCH (09:00)
[2022-02-21] MEDS ORDERED: ATORVASTATIN 40 MG TAB PO SCH (09:00)
[2022-02-21] MEDS ORDERED: FLUTICASONE PROPIONATE NA SPR 16 GM BTL NAE SCH (09:00)
--- NOTE | 2022-02-21 09:05 | Gastroenterology Progress Note ---
Date of Service February 21, 2022 Assessment & Plan (1) Food impaction of esophagus: Plan: 86 year old male admitted for food impaction, food in the lower third of the esophagus w/ successful removal, esophageal ulcers actively bleeding, clipped. UGI series this AM without extravasation of contrast at the gastroesophageal junction. Ok to advance to full liquid diet today and continued for a total of three days After three days, can advance to mechanical soft diet until next EGD is completed EGD in 4 weeks for repeat evaluation Send home with PO Pantoprazole 40 mg once daily Recall GI as needed. Thank you for allowing us to participate in the care of this patient. Please call with any acute changes, questions or concerns. Please see addendum below with additional recommendation from my supervising physician. Admission and Anticipated Discharge Date Admission Date: February 21, 2022 Supervising Physician Co-Signing Physician Notes I saw and evaluated the patient. He notes feeling well this morning and has no complaints. His upper GI series showed no evidence of esophageal perforation. I would recommend that the patient be on a full liquid diet for 72 hours and then on a soft mechanical diet thereafter. He should be maintained on a proton pump inhibitor 1 time daily and undergo repeat upper endoscopy in 4 to 6 weeks at which time we can perform esophageal dilation. Please call with any additional questions or concerns, GI to sign off Subjective Pt was seen and evaluated, chart reviewed. Feeling well s/p EGD. Went for UGI series this morning. UGI 2021: No extravasation of contrast at the gastroesophageal junction to suggest a leak. EGD 2021: - Food in the lower third of the esophagus. Removal was successful. - Esophageal ulcers actively bleeding. Clips (MR conditional) were placed. - Moderate Schatzki ring. - Normal stomach. - Medium-sized hiatal hernia. Review of Systems Review of Systems: All systems reviewed & are unremarkable except as noted in HPI & below Physical Exam Constitutional: WD/WN, vitals as above Respiratory: normal respiratory effort, lungs clear to auscultation Cardiovascular: Rate/Rhythm: regular rate Gastrointestinal (Abdomen): normal bowel sounds, soft, nontender, no he patosplenomegaly Skin: no rashes, warm and dry Results & Data ([facility]) Vital Signs (Past 12 Hours) Vital Signs Temp Pulse Pulse Resp BP BP BP 02/21/22 08:30 37 C 93 H 19 111/71 02/21/22 07:40 37.0 C 95 H 18 111/71 02/21/22 08:00 37 C 72 15 114/60 02/21/22 08:00 72 02/21/22 02:49 62 02/21/22 02:40 65 18 02/21/22 02:30 63 13 02/21/22 02:20 62 13 02/21/22 02:10 63 15 02/21/22 02:00 66 15 02/21/22 01:50 65 13 02/21/22 01:40 63 10 L 02/21/22 01:30 64 12 02/21/22 01:20 65 10 L 02/21/22 01:17 66 15 02/20/22 23:00 69 18 02/20/22 23:00 144/78 H 02/20/22 22:50 64 14 02/20/22 22:40 65 13 02/20/22 22:30 67 15 02/20/22 22:30 124/71 02/20/22 22:20 66 15 02/20/22 22:10 71 15 02/20/22 22:00 67 12 02/20/22 22:00 138/80 02/20/22 21:50 70 12 02/20/22 21:40 71 23 02/20/22 21:30 71 20 02/20/22 21:20 83 13 02/20/22 21:19 80 16 02/21/22 01:19 36.5 C 62 16 153/75 H 02/21/22 00:44 36.5 C 62 18 146/77 H 02/21/22 00:34 36.6 C 61 14 152/81 H 02/21/22 00:24 36.5 C 60 12 145/77 H 02/21/22 00:14 36.7 C 61 18 146/73 H 02/21/22 00:04 36.6 C 63 15 134/77 02/20/22 23:17 65 18 138/78 02/20/22 20:59 64 18 124/71 02/20/22 21:00 36.2 C L 85 18 116/65 Pulse Ox O2 Del Method 02/21/22 08:30 97 Room Air 02/21/22 07:40 96 Room Air 02/21/22 08:00 96 Room Air 02/21/22 08:00 02/21/22 02:49 02/21/22 02:40 94 02/21/22 02:30 92 02/21/22 02:20 93 02/21/22 02:10 94 02/21/22 02:00 93 02/21/22 01:50 91 02/21/22 01:40 96 02/21/22 01:30 97 02/21/22 01:20 98 02/21/22 01:17 98 02/20/22 23:00 93 02/20/22 23:00 02/20/22 22:50 95 02/20/22 22:40 95 02/20/22 22:30 02/20/22 22:30 02/20/22 22:20 97 02/20/22 22:10 97 02/20/22 22:00 94 02/20/22 22:00 02/20/22 21:50 97 02/20/22 21:40 02/20/22 21:30 97 02/20/22 21:20 97 02/20/22 21:19 96 02/21/22 01:19 98 Room Air 02/21/22 00:44 98 Room Air 02/21/22 00:34 96 Room Air 02/21/22 00:24 97 Room Air 02/21/22 00:14 97 Room Air 02/21/22 00:04 98 Room Air 02/20/22 23:17 95 Room Air 02/20/22 20:59 94 Room Air 02/20/22 21:00 96 Room Air Laboratory Results 02/21/22 02/21/22 02/21/22 Range/Units Unknown 07:14 05:00 WBC (4.8-10.8) K/ul RBC (4.63-6.08) M/uL Hgb (14.0-18.0) g/dl Hct (40.1-51.0) % MCV (80.0-100.0) fL MCH (25.0-34.0) pg MCHC (32.0-36.0) g/dL RDW Std Deviation (36.4-46.3) fL RDW Coeff of Flor[place] (11.5-14.5) % Plt Count (130-400) K/uL MPV (9.4-12.4) fL Immature Gran % (Auto) % Neut % (Auto) % Lymph % (Auto) % [place] % (Auto) % Eos % (Auto) % Baso % (Auto) % Neut # (Auto) (1.4-6.5) K/uL Lymph # (Auto) (1.2-3.4) K/uL [place] # (Auto) (0.24-0.82) K/uL Eos # (Auto) (0-0.50) K/uL Baso # (Auto) (0-0.2) K/uL Immature Gran # (Auto) (0.00-0.02) K/uL Sodium 141 (136-145) mmol/L Potassium 4.0 (3.5-5.1) mmol/L Chloride 111 H (98-107) mmol/L Carbon Dioxide 28 (21-32) mmol/L Anion Gap 2 L (3-11) BUN 16 (6-23) mg/dl Creatinine 0.87 (0.6-1.4) mg/dl Est Cr Clr Drug Dosing 61.1 ml/min Est GFR ( Amer) 91.9 ml/min Est GFR (Non-Af Amer) 79.3 ml/min BUN/Creatinine Ratio 18.4 (10-20) Glucose 119 H (70-99(Fasting)) mg/dl Calcium 7.5 L (8.5-10.1) mg/dl Magnesium 1.8 (1.7-2.4) mg/dl 25-OH Vitamin D Total 16.9 L (30-100) ng/ml Nasal Screen MRSA (PCR) Negative (Negative) SARS-CoV-2, RNA, NAAT (NEGATIVE) 02/21/22 02/20/22 02/20/22 Range/Units 05:00 Unknown 21:39 WBC 7.39 (4.8-10.8) K/ul RBC 4.00 L (4.63-6.08) M/uL Hgb 11.6 L (14.0-18.0) g/dl Hct 36.5 L (40.1-51.0) % MCV 91.3 (80.0-100.0) fL MCH 29.0 (25.0-34.0) pg MCHC 31.8 L (32.0-36.0) g/dL RDW Std Deviation 43.5 (36.4-46.3) fL RDW Coeff of Flori 13.1 (11.5-14.5) % Plt Count 168 (130-400) K/uL MPV 11.7 (9.4-12.4) fL Immature Gran % (Auto) 0.1 % Neut % (Auto) 70.0 % Lymph % (Auto) 17.6 % [place] % (Auto) 8.5 % Eos % (Auto) 3.5 % Baso % (Auto) 0.3 % Neut # (Auto) 5.17 (1.4-6.5) K/uL Lymph # (Auto) 1.30 (1.2-3.4) K/uL [place] # (Auto) 0.63 (0.24-0.82) K/uL Eos # (Auto) 0.26 (0-0.50) K/uL Baso # (Auto) 0.02 (0-0.2) K/uL Immature Gran # (Auto) 0.01 (0.00-0.02) K/uL Sodium 141 (136-145) mmol/L Potassium 3.8 (3.5-5.1) mmol/L Chloride 110 H (98-107) mmol/L Carbon Dioxide 25 (21-32) mmol/L Anion Gap 6 (3-11) BUN 20 (6-23) mg/dl Creatinine 1.00 (0.6-1.4) mg/dl Est Cr Clr Drug Dosing 53.2 ml/min Est GFR ( Amer) 79.7 ml/min Est GFR (Non-Af Amer) 68.8 ml/min BUN/Creatinine Ratio 20.0 (10-20) Glucose 93 (70-99(Fasting)) mg/dl Calcium 7.8 L (8.5-10.1) mg/dl Magnesium (1.7-2.4) mg/dl 25-OH Vitamin D Total (30-100) ng/ml Nasal Screen MRSA (PCR) (Negative) SARS-CoV-2, RNA, NAAT NEGATIVE (NEGATIVE) 02/20/22 Range/Units 21:39 WBC 5.46 (4.8-10.8) K/ul RBC 4.07 L (4.63-6.08) M/uL Hgb 11.9 L (14.0-18.0) g/dl Hct 36.0 L (40.1-51.0) % MCV 88.5 (80.0-100.0) fL MCH 29.2 (25.0-34.0) pg MCHC 33.1 (32.0-36.0) g/dL RDW Std Deviation 42.9 (36.4-46.3) fL RDW Coeff of Flori 13.2 (11.5-14.5) % Plt Count 177 (130-400) K/uL MPV 11.9 (9.4-12.4) fL Immature Gran % (Auto) 0.2 % Neut % (Auto) 48.2 % Lymph % (Auto) 34.1 % [place] % (Auto) 12.3 % Eos % (Auto) 4.8 % Baso % (Auto) 0.4 % Neut # (Auto) 2.64 (1.4-6.5) K/uL Lymph # (Auto) 1.86 (1.2-3.4) K/uL [place] # (Auto) 0.67 (0.24-0.82) K/uL Eos # (Auto) 0.26 (0-0.50) K/uL Baso # (Auto) 0.02 (0-0.2) K/uL Immature Gran # (Auto) 0.01 (0.00-0.02) K/uL Sodium (136-145) mmol/L Potassium (3.5-5.1) mmol/L Chloride (98-107) mmol/L Carbon Dioxide (21-32) mmol/L Anion Gap (3-11) BUN (6-23) mg/dl Creatinine (0.6-1.4) mg/dl Est Cr Clr Drug Dosing ml/min Est GFR ( Amer) ml/min Est GFR (Non-Af Amer) ml/min BUN/Creatinine Ratio (10-20) Glucose (70-99(Fasting)) mg/dl Calcium (8.5-10.1) mg/dl Magnesium (1.7-2.4) mg/dl 25-OH Vitamin D Total (30-100) ng/ml Nasal Screen MRSA (PCR) (Negative) SARS-CoV-2, RNA, NAAT (NEGATIVE) (1) Food impaction of esophagus Encounter type: initial encounter Qualified Code(s): T18.128A - Food in esophagus causing other injury, initial encounter
--- NOTE | 2022-02-21 15:53 | Discharge Summary ---
Date of Service February 21, 2022 Admission HPI Per Admitting Provider This is an 86-year-old male with past medical history significant for hypercholesterolemia, history of SVT, history of CVA, history of Schatzki ring, BPH, osteoarthritis, monoclonal paraproteinemia, history of small-bowel obstruction, history of colonic polyps, who presents with food bolus. The patient was eating chicken and after one bite of chicken it stuck in his throat. He came to the ER. Status post EGD and removal of impacted food bolus. It looks like upon removal of the food bolus, two large rents were noted in the distal esophagus with surrounding ischemia. This was treated with placement of 5 endoscopic clips. GI recommended to keep n.p.o. tonight and empiric broad-spectrum antibiotics were given, Protonix 40 IV b.i.d., and swallow study in the a.m. To monitor in the hospital. Currently, the patient is resting comfortably and hemodynamically stable. He says he is feeling better. Denies any chest pain, no shortness of breath, no cough, no nausea, no abdominal pain, no headache. Vision is okay. Somewhat hard of hearing. No runny nose, no sore throat. The patient says he had his esophagus dilated a couple of times in the past. No swelling in the legs. Normal bowel and bladder movements. He ambulates okay. He lives with his . Admission Exam Per Admitting Provider GENERAL: The patient is old and frail, not in acute distress. VITAL SIGNS: Temperature 36.5, pulse 62, respiratory rate 18, blood pressure 146/77, oxygen 98% on room air. HEENT: Extraocular muscles intact. Atraumatic. No facial droop. NECK: No JVD or neck masses. CARDIOVASCULAR: S1 and S2 heard. Regular rate and rhythm. No murmur, no gallop. RESPIRATORY SYSTEM: Normal AP diameter. No accessory muscle use. No wheezing, no crackles. ABDOMEN: Soft, bowel sounds present, nontender, no distention. CENTRAL NERVOUS SYSTEM: Alert and awake. Speech is clear. No facial droop. Insight is okay. Obeys simple commands. Moves extremities. EXTREMITIES: No edema, no erythema. Principal Diagnosis Food impaction of esophagus Esophageal ulcers Discharge Exam GENERAL: The patient is old and frail, not in acute distress. HEENT: Extraocular muscles intact. Atraumatic. No facial droop. NECK: No JVD or neck masses. CARDIOVASCULAR: S1 and S2 heard. Regular rate and rhythm. No murmur, no gallop. RESPIRATORY SYSTEM: Normal AP diameter. No accessory muscle use. No wheezing, no crackles. ABDOMEN: Soft, bowel sounds present, nontender, no distention. CENTRAL NERVOUS SYSTEM: Alert and awake. Speech is clear. No facial droop. Insight is okay. Obeys simple commands. Moves extremities. EXTREMITIES: No edema, no erythema. Discharge Data Allergies Allergy/AdvReac Type Severity Reaction Status Date / Time thiamine (vitamin B1) Allergy Mild RASH Verified 02/20/22 23:27 Penicillins Allergy Unknown RASH Verified 02/20/22 23:27 soy Allergy Unknown SHAKY, Verified 02/20/22 23:27 CHILLS, BM Consultations 02/21/22 01:19 Consult Gastroenterology Routine Procedures Performed Operation Date: 02/21/22 00:00 Actual Procedures p Esophagogastroduodenoscopy, Food Bolus Removal - Tigre Pozo DO Hospital Course (1) Food impaction of esophagus: This is an 86-year-old male who presents with food bolus. 1. Food bolus: He is status post EGD and removal of the impacted food bolus and upon removal of the food bolus, there were found to be two large rents noted in the distal esophagus with surrounding ischemia. He was treated with placement of 5 endoscopic clips. GI recommends NPO, empiric antibiotics with ciprofloxacin, Protonix 40 mg IV b.i.d. There is a plan for swallow study in the a.m. EGD Findings: Food was found in the lower third of the esophagus. Removal of food was accomplished. The mucosa of the distal esophagus was notable for ischemia and deep ulceration as described below. Two deep cratered esophageal ulcers/rents actively bleeding were found at the gastroesophageal junction. For hemostasis, five hemostatic clips were successfully placed (MR conditional, thred[employer]). There was no bleeding at the end of the procedure. A moderate Schatzki ring was found at the gastroesophageal junction. The entire examined stomach was normal. A medium-sized hiatal hernia was found. Impression: - Food in the lower third of the esophagus. Removal was successful. - Esophageal ulcers actively bleeding. Clips (MR conditional) were placed. - Moderate Schatzki ring. - Normal stomach. - Medium-sized hiatal hernia. Recommendation: - Observe patient in same day observation unit for observation. - Perform a video esophagram tomorrow. - NPO this evening 02/21/22 Per GI - food in the lower third of the esophagus w/ successful removal, esophageal ulcers actively bleeding, clipped. UGI series this AM without extravasation of contrast at the gastroesophageal junction. Ok to advance to full liquid diet today and continued for a total of three days After three days, can advance to mechanical soft diet until next EGD is completed EGD in 4 weeks for repeat evaluation Send home with PO Pantoprazole 40 mg once daily 2. Hyperlipidemia: Whenever able to take p.o., can give his atorvastatin. 3. Benign prostatic hypertrophy: Cardura whenever he is able to take p.o. and also Proscar. 4. History of supraventricular tachycardia: Will monitor. 5. History of cerebrovascular accident: On aspirin and statin, which will restart whenever he is able to take p.o. 6. Hypocalcemia? - normal level this AM DVT prophylaxis: Sequential compression devices for now. DISPOSITION:Plan to DC home Total Time Total Time Spent Total Time Spent (In Minutes): 40 Discharge Plan Discharge Items Patient Disposition: Home - Self-Care Reason For Visit: FOOD BOLUS Discharge Diagnosis: Food impaction of esophagus Esophageal ulcers Condition on Discharge: Good Activity: Per Instructions section Non-emergency contact: Primary Care Provider and Doughnut Machine Operator Call non-emergency contact if: you have any medication questions and your symptoms worsen Follow-up/Referrals: Grant Gold, [Primary Care Provider] - Diet: Full liquid Addtl Attending Provider Instructions: Follow-up with primary care doctor within 1 week. Only be on full liquid diet for next 3 days, then advance to soft diet for next 4 weeks. In 4 weeks you will need another endoscopy. Take pantoprazole 40 mg daily. Pending Studies at Discharge: No Stand-Alone Forms: My [facility], Virtual Emergency Department, Important Visit Information Medications and DC Order Prescriptions: New pantoprazole 40 mg tablet,delayed release (DR/EC) 40 mg PO DAILY Qty: 30 0RF Continued doxazosin [Cardura] 4 mg tablet 8 mg PO HS finasteride [Proscar] 5 mg tablet 5 mg PO DAILY atorvastatin 40 mg Tablet 40 mg PO QAM Qty: 30 0RF aspirin 81 mg Tablet,Delayed Release (Dr/Ec) 81 mg PO QAM Qty: 30 0RF famotidine [Pepcid] 20 mg Tablet 20 mg PO DAILY PRN (Reason: Acid Reflux) fluticasone propionate 50 mcg/actuation [place],Suspension 2 spray INTRANASAL DAILY Rx Instructions: administer into each nostril PreserVision AREDS-2 250-90-40-1 mg Capsule 1 tab PO AMHS Discontinued pantoprazole 20 mg tablet,delayed release (DR/EC) 20 mg PO DAILY PRN (Reason: Acid Reflux) Discharge Orders: Discharge Order (Routine); Ordered 02/21/22 Ordered By: Pavan Kennedy Admission Data Admit Date/Time: 02/21/22 00:54 Attending Provider: Pavan Kennedy Admit Provider: Aristeo Chan Primary Care Provider: Grant Gold Other Providers: Tigre Pozo Other Interventions: Discharge Summary Assessment (RN) Last Done: 02/21/22 15:27
--- NOTE | 2022-02-21 16:41 | Electrocardiogram Report ---
Test Reason : Blood Pressure : / mmHG Vent. Rate : 070 BPM Atrial Rate : 070 BPM P-R Int : 222 ms QRS Dur : 126 ms QT Int : 426 ms P-R-T Axes : 050 -55 022 degrees QTc Int : 460 ms Sinus rhythm with 1st degree A-V block Left axis deviation Right bundle branch block Inferior infarct (cited on or before 25-MAY-2021) Abnormal ECG When compared with ECG of 25-MAY-2021 07:34, No significant change was found Confirmed by Kemal Lew ([id number]) on 02/21/2022 4:41:10 PM Referred By: REFERRED SELF Confirmed By:Kemal Lew
[2022-02-21] MEDS ORDERED: DOXAZosin MESYLATE 4 MG TAB PO SCH (21:00)
== END 2022-02-21 16:00 | disposition home or self-care (01) | DRG 393 ==
LOC: ED 20:59 → OR 23:18 → 1E 02-21 00:54

== ENCOUNTER 2022-03-09 10:17 | Inpatient (IN) ==
[2022-03-09] MEDS ORDERED: ONDANSETRON INJ 2 MG/ML 2 ML VIAL IV STA ×2 (10:20→11:13)
--- NOTE | 2022-03-09 10:22 | Emergency Department Note ---
Impression & Plan Small bowel obstruction, Stroke-like symptoms, Hypomagnesemia, Anemia, Acute dehydration ED Provider Note NAME: ROBERTO TODD AGE: 86 SEX: M : 1935 ARRIVES VIA: Ambulance INFORMANT: Patient, ED PROVIDER(S): Terry Patel MD Chief Complaint: Headache, left arm numbness HPI: Patient does present due to concern for nausea vomiting headache and retro- orbital discomfort which was similar with regard to symptoms when he had a prior stroke. The patient per history did have an acute lacunar infarct in May 2021. The patient was to be on aspirin and Plavix for 21 days and then baby aspirin. Patient reportedly at that time had some numbness to the right face and an MRI in May 2020 which showed a left thalamic lacunar infarct. Lives with patient did have an EGD completed on February 20 to where the patient did have food in the lower third of the esophagus. He had esophageal ulcers which were actively bleeding placed. Moderate Schatzki ring normal stenotic and medium size hiatal hernia. Patient did have an upper GI series the morning of the and showed no active extra of contrast at the GE junction. Patient was to have an EGD completed in 4 weeks. Patient reportedly had left arm numbness frontal headache and nausea. Patient has been on a restricted diet and has been feeling somewhat weak. His complaints of blurry vision. Patient denies a in the headache. The patient states that he began having symptoms around 6 AM he had woken up and tried to take the medication which then provoked this. The patient denies any fevers or chills and has no chest pains or shortness of breath. He does complain of mild upper abdominal pain. ROS: See HPI for pertinent positives and negatives. A total of 10 systems were reviewed and otherwise negative. Past medical history: See below Surgical history: See below Social history: See below Physical Exam: GENERAL: NAD, wearing a mask, non-toxic. EYE EXAM: Normal conjunctiva. PERRL, no anisocoria and EOM's grossly intact w/o pain. NECK: Supple, no nuchal rigidity, no adenopathy, non-tender. No signs of meningismus. FROM of the neck with good chin to chest and neck extension. No stridor. LUNGS: Clear to auscultation. Normal chest wall mechanics. HEART: NSR, no MRG. ABDOMEN: Abdomen soft, mild upper abdominal pain, normo-active bowel sounds, no masses, no rebound or guarding. BACK: No CVA TTP. SKIN: No rashes and no bruising. UPPER EXTREMITIES: Upper extremities are grossly normal. LOWER EXTREMITIES: Grossly normal, no edema. NEURO EXAM: A&O x3, cranial nerves II-XII grossly intact, normal speech, moves all 4 extremities. Differential diagnoses: Infection, dehydration, metabolic abnormality, hypo/hyperglycemia, electrolyte disturbance, anemia, hypoxia, cardiac sources, intracerebral event, toxicologic, neurologic, as well as other pathologies. Course: Patient was seen and evaluated the bedside. Full history physical exam was performed. EKG interpreted by me Normal sinus rhythm, rate of 90, wide QRS, left axis deviation, right bundle branch block pattern. T wave inversions in V2 and V3. Patient's right bundle is old from comparison EKG February 20, 2022. Left axis also old. Patient does have new T wave inversions in V2 and V3. Imaging Studies: See Below Cardiac monitoring: An order was placed for continuous cardiac monitoring. The monitor shows a rate of 88 with sinus rhythm. MDM: Patient was seen due to concern for nausea vomiting headache and left arm numbness which was similar to when he had had a stroke about a year ago. Code stroke was initiated and the patient went straight to CAT scan receiving CT of the head and CT angiography head and neck. I did speak with telestroke neurolo gist Dr. Piedra who did come evaluate the patient. The patient stated that his numbness had improved. The patient CT head shows chronic microvascular changes but no large vessel occlusion or large area of stroke or hemorrhage. CT angiography of head and neck did not show any acute concerning findings. I did convey this to Dr. Piedra who recommended an MR brain. After the patient had return from CAT scan he had complained of some upper abdominal pain. The patient did have a recent food impaction which had been relieved and subsequent ulceration of the esophagus which had been clipped. The patient did have CT of the abdomen pelvis completed. The patient's blood work showed a virtually norm al white count at 10.8 with a hemoglobin 11.9. Patient's hemoglobin is chronic and stable. The patient does likely have some dehydration component and was given IV fluids and antiemetics. The patient was noted to have hypocalcemia and hypomagnesemia which were ordered for replacement. Patient CT does show a likely bowel obstruction. I did speak with GI to ensure that placing NG would not be a problem given the patient's recent esophageal erosions status post clipping. I did speak with the Carrie Bryan who stated that that would be acceptable. NG was ordered. KUB ordered. This did show appropriate placement of the NG. I did previously discussed this case with Dr. Christiansen who agreed that the NG tube would be adequate in the short-term but if he required a procedure he would need to be transferred to [facility] in [place]. I did convey this to the hospitalist and did speak with Magali Connell PA-C and the patient was admitted by Dr. Alexander. I did convey the findings to the family and they were comfortable with plan of care. Past Med/Surg History Medical History Anemia BPH (benign prostatic hyperplasia) CVA (cerebral vascular accident) History of supraventricular tachycardia HLD (hyperlipidemia) Schatzki's ring Small bowel obstruction Surgical History H/O abdominal surgery 2008; bowel adhesion. [place] [facility] [place] of [place]ectomy History of arthroscopy of right shoulder History of cholecystectomy History of colonoscopy History of esophagogastroduodenoscopy (EGD) History of laparotomy 2006-exploratory laparotomy/lysis of adhesions at [facility] History of resection of small bowel 2008. Dr. Carl[place] [facility] [place] Family History Family/Other Coronary heart disease Social History Smoking Status: Never smoker Hx Alcohol Use: No Hx Substance Use: No Preferred Language: Marshallese Communication Ability: Effective Coupler Required: No Beliefs That Will Affect Care: None marital status: Current Living Situation: Spouse How many Children do You have: 3 Feels Safe at Home: Yes Assistive Devices: None Allergies Allergies Allergy/AdvReac Type Severity Reaction Status Date / Time thiamine (vitamin B1) Allergy Mild RASH Verified 02/20/22 23:27 Penicillins Allergy Unknown RASH Verified 02/20/22 23:27 soy Allergy Unknown SHAKY, Verified 02/20/22 23:27 CHILLS, BM Home Meds Home Medications Medication Instructions Recorded Confirmed doxazosin 4 mg tablet (Cardura) 8 mg PO HS 05/25/21 03/09/22 finasteride 5 mg tablet (Proscar) 5 mg PO DAILY 05/25/21 03/09/22 fluticasone propionate 50 2 spray intranasal DAILY 02/20/22 03/09/22 mcg/actuation nasal spray,suspension vit C 250 mg-vit E 90 mg-zinc 40 1 tab PO AMHS 02/20/22 03/09/22 mg-copper 1 [id number] capsule (PreserVision AREDS-2) aspirin 81 mg tablet,delayed 81 mg PO HS 03/09/22 03/09/22 release Previous Rx's Medication Instructions Recorded atorvastatin 40 mg tablet 40 mg PO QAM #30 tabs 05/26/21 pantoprazole 40 mg tablet,delayed 40 mg PO DAILY #30 tabs 02/21/22 release Results & Data (ED) Vital Signs Vital Signs - 24 hr 03/09/22 10:43 03/09/22 11:00 03/09/22 11:31 Temperature 36.8 C Temperature Source Oral Pulse Rate 83 Pulse Rate [Apical] 91 H Pulse Rhythm [Apical] Pulse Strength [Apical] Respiratory Rate 14 18 Respiratory Effort / Characteristics Respiratory Depth Respiratory Pattern Blood Pressure 125/78 Blood Pressure [Right Arm] 123/78 Blood Pressure Mean 93 Blood Pressure Mean [Right Arm] 93 Blood Pressure Position [Right Arm] Pulse Oximetry 99 94 Oxygen Delivery Method Room Air Room Air Sepsis Recent Fever Within 48 Hours No Sepsis New/Unexplained Change in Mental Status No Sepsis Action Taken by Nursing No Action Required 03/09/22 11:31 03/09/22 12:17 03/09/22 13:00 Temperature Temperature Source Pulse Rate Pulse Rate [Apical] 84 88 Pulse Rhythm [Apical] Regular Pulse Strength [Apical] Normal Respiratory Rate 19 16 Respiratory Effort / Characteristics Non-Labored Spontaneous Non-Labored Spontaneous Respiratory Depth Normal Normal Respiratory Pattern Regular Blood Pressure Blood Pressure [Right Arm] 141/59 H 139/70 Blood Pressure Mean Blood Pressure Mean [Right Arm] 86 93 Blood Pressure Position [Right Arm] Lying Pulse Oximetry 99 98 99 Oxygen Delivery Method Room Air Room Air Room Air Sepsis Recent Fever Within 48 Hours Sepsis New/Unexplained Change in Mental Status Sepsis Action Taken by Intermediate Medications Current Medication List: was personally reviewed by me Laboratory Data Attestation: I reviewed the patient's lab results. Result diagrams: 03/09/22 10:51 03/09/22 10:51 Lab Results 03/09/22 03/09/22 03/09/22 Range/Units 10:41 10:51 10:51 WBC 10.89 H (4.8-10.8) K/ul RBC 4.09 L (4.63-6.08) M/uL Hgb 11.9 L (14.0-18.0) g/dl POC Hgb (14.0-18.0) g/dl Hct 36.4 L (40.1-51.0) % POC Hct (42-52) % MCV 89.0 (80.0-100.0) fL MCH 29.1 (25.0-34.0) pg MCHC 32.7 (32.0-36.0) g/dL RDW Std Deviation 42.5 (36.4-46.3) fL RDW Coeff of Flori 12.9 (11.5-14.5) % Plt Count 212 (130-400) K/uL MPV 12.2 (9.4-12.4) fL Immature Gran % (Auto) 0.2 % Neut % (Auto) 85.4 % Lymph % (Auto) 7.7 % [place] % (Auto) 6.4 % Eos % (Auto) 0.2 % Baso % (Auto) 0.1 % Neut # (Auto) 9.30 H (1.4-6.5) K/uL Lymph # (Auto) 0.84 L (1.2-3.4) K/uL [place] # (Auto) 0.70 (0.24-0.82) K/uL Eos # (Auto) 0.02 (0-0.50) K/uL Baso # (Auto) 0.01 (0-0.2) K/uL Immature Gran # (Auto) 0.02 (0.00-0.02) K/uL PT 12.4 H (9.0-12.0) Seconds INR 1.2 H (0.9-1.1) APTT 23.7 (21.0-31.0) Seconds PTT Ratio 0.9 POC Sodium (135-144) mmol/L Sodium (136-145) mmol/L POC Potassium (3.3-5.0) mmol/L Potassium (3.5-5.1) mmol/L POC Chloride (101-112) mmol/L Chloride (98-107) mmol/L Carbon Dioxide (21-32) mmol/L POC Total CO2 (24-31) mmol/L Anion Gap (3-11) POC Anion Gap (16-25) mmol/L POC BUN (7-18) mg/dl BUN (6-23) mg/dl Creatinine (0.6-1.4) mg/dl POC Creatinine (0.6-1.3) mg/dl Est Cr Clr Drug Dosing Est GFR ( Amer) ml/min Est GFR (Non-Af Amer) ml/min BUN/Creatinine Ratio (10-20) Glucose (70-99(Fasting)) mg/dl POC Glucose 102 H (70-99) mg/dl POC Glucose (other) (70-99) mg/dl Calcium (8.5-10.1) mg/dl POC Ioniz Calcium Maria G (1.12-1.32) mmol/l Magnesium (1.7-2.4) mg/dl Total Bilirubin (0.2-1.0) mg/dl AST (13-39) U/L ALT (7-52) U/L Alkaline Phosphatase (34-104) U/L Troponin I High Sens (0-20) pg/ml Total Protein (6.0-8.3) gm/dl Albumin (3.4-5.0) gm/dl Globulin (2.5-4.0) gm/dl Albumin/Globulin Ratio (0.9-2) SARS-CoV-2, RNA, NAAT (NEGATIVE) 03/09/22 03/09/22 03/09/22 Range/Units 10:51 10:52 11:23 WBC (4.8-10.8) K/ul RBC (4.63-6.08) M/uL Hgb (14.0-18.0) g/dl POC Hgb 11.9 L (14.0-18.0) g/dl Hct (40.1-51.0) % POC Hct 35 L (42-52) % MCV (80.0-100.0) fL MCH (25.0-34.0) pg MCHC (32.0-36.0) g/dL RDW Std Deviation (36.4-46.3) fL RDW Coeff of Flori (11.5-14.5) % Plt Count (130-400) K/uL MPV (9.4-12.4) fL Immature Gran % (Auto) % Neut % (Auto) % Lymph % (Auto) % [place] % (Auto) % Eos % (Auto) % Baso % (Auto) % Neut # (Auto) (1.4-6.5) K/uL Lymph # (Auto) (1.2-3.4) K/uL [place] # (Auto) (0.24-0.82) K/uL Eos # (Auto) (0-0.50) K/uL Baso # (Auto) (0-0.2) K/uL Immature Gran # (Auto) (0.00-0.02) K/uL PT (9.0-12.0) Seconds INR (0.9-1.1) APTT (21.0-31.0) Seconds PTT Ratio POC Sodium 139 (135-144) mmol/L Sodium 138 (136-145) mmol/L POC Potassium 4.5 (3.3-5.0) mmol/L Potassium 4.6 (3.5-5.1) mmol/L POC Chloride 104 (101-112) mmol/L Chloride 105 (98-107) mmol/L Carbon Dioxide 21 (21-32) mmol/L POC Total CO2 20 L (24-31) mmol/L Anion Gap 12 H (3-11) POC Anion Gap 19.0 (16-25) mmol/L POC BUN 23 H (7-18) mg/dl BUN 26 H (6-23) mg/dl Creatinine 1.17 (0.6-1.4) mg/dl POC Creatinine 1.3 (0.6-1.3) mg/dl Est Cr Clr Drug Dosing Not Reportable Est GFR ( Amer) 66.0 ml/min Est GFR (Non-Af Amer) 56.9 ml/min BUN/Creatinine Ratio 22.2 H (10-20) Glucose 119 H (70-99(Fasting)) mg/dl POC Glucose (70-99) mg/dl POC Glucose (other) 122 H (70-99) mg/dl Calcium 8.4 L (8.5-10.1) mg/dl POC Ioniz Calcium Maria G 1.02 L (1.12-1.32) mmol/l Magnesium 1.5 L (1.7-2.4) mg/dl Total Bilirubin 0.9 (0.2-1.0) mg/dl AST 21 (13-39) U/L ALT 19 (7-52) U/L Alkaline Phosphatase 67 (34-104) U/L Troponin I High Sens 6.1 (0-20) pg/ml Total Protein 5.4 L (6.0-8.3) gm/dl Albumin 3.3 L (3.4-5.0) gm/dl Globulin 2.1 L (2.5-4.0) gm/dl Albumin/Globulin Ratio 1.6 (0.9-2) SARS-CoV-2, RNA, NAAT NEGATIVE (NEGATIVE) Administered Medications Sodium Chloride (Nss 1000ml) 1,000 mls @ 75 mls/hr IV .[id number] RAHUL Stop: 03/11/22 06:29 Last Admin: 03/09/22 16:09 Dose: 75 mls/hr Documented By: CC Magnesium Sulfate/Dextrose (Magnesium Sulfate / D5w) 1 gm in 100 mls @ 50 mls/hr IV Q2H RAHUL Stop: 03/09/22 18:29 Last Admin: 03/09/22 16:05 Dose: 50 mls/hr Documented By: CC Discontinued Medications Sodium Chloride (Nss 1000ml) 1,000 mls @ 999 mls/hr IV .[id number] ONE Stop: 03/09/22 12:13 Last Infusion: 03/09/22 12:57 Dose: 0 mls/hr Documented By: OAAshley Admin: 03/09/22 11:29 Dose: 999 mls/hr Documented By: DELGADO Acetaminophen (Ofirmev) 1,000 mg in 100 mls @ 400 mls/hr IV NOW STA Stop: 03/09/22 11:27 Last Infusion: 03/09/22 11:54 Dose: 0 mls/hr Documented By: OAAshley Admin: 03/09/22 11:29 Dose: 400 mls/hr Documented By: DELGADO Calcium Gluconate () 1,000 mg in 60 mls @ 240 mls/hr IV NOW STA Stop: 03/09/22 12:01 Last Infusion: 03/09/22 12:23 Dose: 0 mls/hr Documented By: Admin: 03/09/22 12:07 Dose: 240 mls/hr Documented By: DELGADO Magnesium Sulfate/Dextrose (Magnesium Sulfate / D5w) 1 gm in 100 mls @ 100 mls/hr IV NOW STA Stop: 03/09/22 12:47 Last Infusion: 03/09/22 13:26 Dose: 0 mls/hr Documented By: Admin: 03/09/22 12:26 Dose: 100 mls/hr Documented By: DELGADO Ioversol (Optiray 320 125ml) 120 ml IV ONCE ONE Stop: 03/09/22 10:39 Last Admin: 03/09/22 10:38 Dose: 120 ml Documented By: JACQUE Lorazepam (Lorazepam 2 Mg/1 Ml Vial) 0.25 mg IV NOW STA; Protocol Stop: 03/09/22 11:14 Last Admin: 03/09/22 11:29 Dose: 0.25 mg Documented By: DELGADO Ondansetron HCl (Ondansetron Inj 2 Mg/Ml 2 Ml Vial) 4 mg IV NOW STA Stop: 03/09/22 10:21 Last Admin: 03/09/22 10:57 Dose: 4 mg Documented By: TIMI Ondansetron HCl (Ondansetron Inj 2 Mg/Ml 2 Ml Vial) 4 mg IV NOW STA Stop: 03/09/22 11:14 Last Admin: 03/09/22 11:29 Dose: 4 mg Documented By: DELGADO Imaging Data Radiologist's Impression: Head CT 03/09/22 10:[address] DOSE: HISTORY: Slurred speech. Vomiting. Visual disturbance. Stroke Like Symptoms TECHNIQUE: Multiaxial CT images of the head were performed without the use of intravenous contrast. Automated exposure control was utilized for this study. A dose lowering technique was utilized adhering to the principles of ALARA. Comparison: Brain MRI outside hospital 05/24/2021. Head CT 05/25/2021. Findings: The paranasal sinuses and mastoid air cells are clear. The calvarium and skull base are intact. There is no mass, hematoma, midline shift, acute infarct. White matter hypodensity is nonspecific but suggestive of microvascular ischemic change. The ventricles and sulci demonstrate mild age-related involutional changes. Mild motion artifact. Impression: No acute intracranial abnormality. Atrophy and microvascular ischemic changes. ACT 112: Negative or not required by law. Electronically signed by: Amauri Clark M.D. 03/09/2022 10:50 AM Head CTA 03/09/22 10:20 HEAD CTA HISTORY: Visual disturbance. Slurred speech. Stroke Like Symptoms TECHNIQUE: Multiaxial CT images of the head were performed following the intravenous administration of contrast to evaluate the major cerebral vessels. Maximum intensity projection images were also obtained. A dose lowering te chnique was utilized adhering to the principles of ALARA. COMPARISON: Head CT 05/25/2021. FINDINGS: There is no mass, hematoma, midline shift, or acute infarct. Visualized intracranial internal carotid arteries, distal vertebral arteries, and basilar artery are widely patent. There is no significant stenosis, occlusion, or aneurysm seen within the bilateral ACAs, MCAs, or brush loader and handle attacher. There is a hypoplastic distal right vertebral artery. There is a persistent right posterior circulation. The major dural venous sinuses are patent. IMPRESSION: No significant stenosis, occlusion, or aneurysm within the [place]. ACT 112: Negative or not required by law. Electronically signed by: Amauri Clark M.D. 03/09/2022 10:53 AM Neck CTA 03/09/22 10:20 CT ANGIOGRAM OF THE NECK CLINICAL HISTORY: Strokelike symptoms. COMPARISON STUDY: Carotid artery ultrasound dated 05/26/2021. TECHNIQUE: Following the IV administration of 120 of Optiray 320, CT angiogram of the neck was performed from the aortic arch to the skull base. Images are reviewed in the axial, sagittal, and coronal planes. 3-D MIPS images are created and assessed. IV contrast was administered without complication. All measurements were calculated based on NASCET criteria. A dose lowering tech nique was utilized adhering to the principles of ALARA. CT DOSE: 1102.99 mGy.cm FINDINGS: Thoracic aorta: Visualized portions of the thoracic aorta are normal in caliber. The aortic arch demonstrates bovine variant anatomy. Right carotid arterial system: The right common carotid artery is widely patent, as are the right internal and external carotid arteries. Mild plaque is noted in the carotid bulb. There is tortuosity of the distal ICA. Left carotid arterial system: The left common carotid artery is widely patent, as are the left internal and external carotid arteries. Mild calcified plaque is noted in the carotid bulb. Vertebral arteries: The vertebral arteries are widely patent bilaterally noting left-sided dominance. Subclavian arteries: Widely patent bilaterally. Intracranial vasculature: The visualized intracranial vessels at the skull base are patent. The left vertebral artery is dominant. Jugular veins: Widely patent bilaterally. Brain parenchyma: The visualized brain parenchyma the skull base is within normal limits. Lung apices: Partially visualized upper lobe lung parenchyma appears clear. Soft tissues: The visualized pharyngeal soft tissues are normal in appearance noting angiographic phase technique. The oropharyngeal airway appears widely patent. The salivary and thyroid glands are normal in appearance. No cervical lymphadenopathy is seen. Skeletal structures: The skeletal structures are osteopenic. The visualized calvarium at the skull base appears intact. The imaged cervical spine is maintained noting mild multilevel spondylosis. No lytic or blastic lesion is seen. Sinuses and mastoids: The visualized paranasal sinuses are clear. The mastoid air cells are well pneumatized. IMPRESSION: Unremarkable CT angiogram of the neck. ACT 112: Negative or not required by law. Electronically signed by: Harsh Smalls M.D. 03/09/2022 10:50 AM Abdomen/Pelvis CT 03/09/22 11:13 CT SCAN OF THE ABDOMEN WITHOUT IV CONTRAST CLINICAL HISTORY: Upper abdominal pain. Nausea and vomiting. COMPARISON STUDY: Abdominal CT dated 01/26/2009. TECHNIQUE: CT scan of the abdomen is performed from the lung bases to the pelvic inlet Images are reviewed in the axial, sagittal, and coronal planes. IV contrast was not administered for this examination. Note that the examination is significantly suboptimal without oral and IV contrast. A dose lowering technique was utilized adhering to the principles of ALARA. CT DOSE: 636.23 mGycm FINDINGS: Lung bases: The heart is top normal in size and without pericardial effusion. The lung bases are clear. There is a small hiatal hernia. Postoperative change is noted at the gastroesophageal junction. Liver: The unenhanced liver is normal in size, contour, and attenuation. There is no intrahepatic biliary ductal dilatation. Gallbladder: Surgically absent noting clips in the gallbladder fossa. Spleen: Normal in size and attenuation. Pancreas: Moderately atrophic and grossly unremarkable. Adrenal glands: Unremarkable. Kidneys: The unenhanced kidneys demonstrate mild cortical atrophy and are without hydronephrosis. The presence renal calculi cannot be assessed due to excreted IV contrast within the renal collecting system and partially visualized bladder. There is no evidence of contour deforming renal mass lesion. Renal sinus cysts are seen bilaterally. Abdominal vasculature: The abdominal aorta is normal in course and caliber noting moderate atherosclerotic calcification. Bowel: There is evidence of multiple bowel resections. There are distended and fluid-filled loops of small bowel in the left upper quadrant which measure up to 4.2 cm in diameter. Loops of small bowel in the right lower quadrant are decompressed, and a transition point is suggested at an anastomotic site in the central lower abdomen on image #222. Appearance is typical for small bowel obstruction. There is no pneumatosis intestinalis or portal venous gas. There are also decompressed segments of the left colon. Liquid stool is noted in the right colon. The appendix is not identified and reported surgically absent Peritoneum: There is no intraperitoneal free air or abdominal ascites. A midline surgical scar is noted. Lymphadenopathy: None. Skeletal structures: The skeletal structures are osteopenic. Mild to moderate lumbosacral spondylosis is observed. No lytic or blastic lesions are seen. IMPRESSION: 1. Significantly suboptimal examination without oral and IV contrast. The pelvis was not imaged. 2. There is evidence of several previous bowel resections. 3. There are distended and fluid-filled loops of proximal small bowel in left upper quadrant, as well as decompressed loops of distal small bowel. A transition point is identified at an anastomosis in the central lower pelvis, and the appearance is typical for bowel obstruction. Clinical correlation will be required. 4. Liquid stool is noted in the right colon. 5. Additional findings as above. ACT 112: Negative or not required by law. Electronically signed by: Harsh Smalls M.D. 03/09/2022 12:05 PM Brain MRI 03/09/22 12:55 MR brain wo con HISTORY: 86 years-old Male L arm numbness, METZ; h/o thalamic lacunar infarct acute stroke like symptoms with left upper extremity weakness COMPARISON: Head CT, CTA head and neck studies of same day TECHNIQUE: Multiplanar multisequence MRI of the brain was obtained without the use of IV contrast. FINDINGS: No restricted diffusion to suggest acute or subacute infarct. Midline structures appear unremarkable with degenerative changes of the cervical spine. Partially empty sella. There is no acute intracranial hemorrhage, midline shift, abnormal extra-axial collection, hydrocephalus or intracranial mass. Involutional changes with mild T2/FLAIR hyperintense foci throughout the white matter. Study is motion degraded, notably the coronal flair series. Cerebral venous sinuses and major arterial flow voids appear patent. Mastoid air cells are clear. Prior bilateral lens repair. Minimal mucosal thickening of the paranasal sinuses. The skull, orbits and soft tissues are unremarkable. IMPRESSION: 1. No acute intracranial abnormality. No acute or subacute infarct. 2. Involutional changes with chronic microvascular ischemic disease. ACT 112: Negative or not required by law. The above report was generated using voice recognition software. It may contain grammatical, syntax or spelling errors. Electronically signed by: Bruce Gudino M.D. 03/09/2022 3:52 PM KUB X-Ray 03/09/22 13:26 KUB HISTORY: Status post placement of an enteric tube NG placement COMPARISON: CT abdomen and pelvis 03/09/2022 FINDINGS: Status post placement of an enteric tube with distal tip projected over the mid stomach. Cholecystectomy. Contrast is noted within the renal collecting systems. Dilated air-filled large bowel. The lower abdomen is excluded from the [id number]. The imaged lung mcneill appear clear. No renal calculi. No ureteral calculi. No pneumoperitoneum or pneumatosis. No fracture. IMPRESSION: Status post placement of an enteric tube, distal tip projected over the stomach. ACT 112: Negative or not required by law. The above report was generated using voice recognition software. It may contain grammatical, syntax or spelling errors. Electronically signed by: Bruce Gudino M.D. 03/09/2022 2:04 PM Discharge Plan Visit Data Chief Complaint: Stroke Alert Stated Complaint: STROKE ALERT ED Provider: Terry Patel Discharge Problem: Small bowel obstruction, Stroke-like symptoms, Hypomagnesemia, Anemia, Acute dehydration Patient Disposition: Admitted As Inpatient Discharge Instructions Interventions: ED Discharge Assessment Last Done: 03/09/22 15:04
[2022-03-09] MEDS ORDERED: OPTIRAY 320 125ml IV ONE (10:38)
--- NOTE | 2022-03-09 10:51 | CT Scan Report ---
HEAD CT NONCONTRAST CT DOSE: HISTORY: Slurred speech. Vomiting. Visual disturbance. Stroke Like Symptoms TECHNIQUE: Multiaxial CT images of the head were performed without the use of intravenous contrast. A utomated exposure control was utilized for this study. A dose lowering technique was utilized adheri ng to the principles of ALARA. Comparison: Brain MRI outside hospital 05/24/2021. Head CT 05/25/2021. Findings: The paranasal sinuses and mastoid air cells are clear. The calvarium and skull base are int act. There is no mass, hematoma, midline shift, acute infarct. White matter hypodensity is nonspecifi c but suggestive of microvascular ischemic change. The ventricles and sulci demonstrate mild age-rela liss involutional changes. Mild motion artifact. Impression: No acute intracranial abnormality. Atrophy and microvascular ischemic changes. ACT 112: Negative or not required by law. Electronically signed by: Amauri Clark M.D. 03/09/2022 10:50 AM
--- NOTE | 2022-03-09 10:51 | CT Scan Report ---
CT ANGIOGRAM OF THE NECK CLINICAL HISTORY: Strokelike symptoms. COMPARISON STUDY: Carotid artery ultrasound dated 05/26/2021. TECHNIQUE: Following the IV administration of 120 of Optiray 320, CT angiogram of the neck was perfor med from the aortic arch to the skull base. Images are reviewed in the axial, sagittal, and coronal p lanes. 3-D MIPS images are created and assessed. IV contrast was administered without complication. A ll measurements were calculated based on NASCET criteria. A dose lowering technique was utilized adh ering to the principles of ALARA. CT DOSE: 1102.99 mGy.cm FINDINGS: Thoracic aorta: Visualized portions of the thoracic aorta are normal in caliber. The aortic arch demo nstrates bovine variant anatomy. Right carotid arterial system: The right common carotid artery is widely patent, as are the right int ernal and external carotid arteries. Mild plaque is noted in the carotid bulb. There is tortuosity of the distal ICA. Left carotid arterial system: The left common carotid artery is widely patent, as are the left internal control specialist al and external carotid arteries. Mild calcified plaque is noted in the carotid bulb. Vertebral arteries: The vertebral arteries are widely patent bilaterally noting left-sided dominance. Subclavian arteries: Widely patent bilaterally. Intracranial vasculature: The visualized intracranial vessels at the skull base are patent. The left vertebral artery is dominant. Jugular veins: Widely patent bilaterally. Brain parenchyma: The visualized brain parenchyma the skull base is within normal limits. Lung apices: Partially visualized upper lobe lung parenchyma appears clear. Soft tissues: The visualized pharyngeal soft tissues are normal in appearance noting angiographic pha se technique. The oropharyngeal airway appears widely patent. The salivary and thyroid glands are nor mal in appearance. No cervical lymphadenopathy is seen. Skeletal structures: The skeletal structures are osteopenic. The visualized calvarium at the skull ba se appears intact. The imaged cervical spine is maintained noting mild multilevel spondylosis. No lyt ic or blastic lesion is seen. Sinuses and mastoids: The visualized paranasal sinuses are clear. The mastoid air cells are well pneu matized. IMPRESSION: Unremarkable CT angiogram of the neck. ACT 112: Negative or not required by law. Electronically signed by: Harsh Smalls M.D. 03/09/2022 10:50 AM
--- NOTE | 2022-03-09 10:54 | CT Scan Report ---
HEAD CTA HISTORY: Visual disturbance. Slurred speech. Stroke Like Symptoms TECHNIQUE: Multiaxial CT images of the head were performed following the intravenous administration o f contrast to evaluate the major cerebral vessels. Maximum intensity projection images were also obta ined. A dose lowering technique was utilized adhering to the principles of ALARA. COMPARISON: Head CT 05/25/2021. FINDINGS: There is no mass, hematoma, midline shift, or acute infarct. Visualized intracranial sports marketing internship al carotid arteries, distal vertebral arteries, and basilar artery are widely patent. There is no sig nificant stenosis, occlusion, or aneurysm seen within the bilateral ACAs, MCAs, or door opener. There is a h ypoplastic distal right vertebral artery. There is a persistent right posterior circulation. Th e major dural venous sinuses are patent. IMPRESSION: No significant stenosis, occlusion, or aneurysm within the [place]. ACT 112: Negative or not required by law. Electronically signed by: Amauri Clark M.D. 03/09/2022 10:53 AM
[2022-03-09 11:01] LABS: Basophils # (auto) 0.01 K/uL (0-0.2); Basophils % (auto) 0.1 %; Eosinophils # (auto) 0.02 K/uL (0-0.50); Eosinophils % (auto) 0.2 %; Hematocrit (blood only) 36.4 % (40.1-51.0); Hemoglobin 11.9 g/dl (14.0-18.0); Immature Granulocytes # (auto) 0.02 K/uL (0.00-0.02); Immature Granulocytes % (auto) 0.2 %; Lymphocytes # (auto) 0.84 K/uL (1.2-3.4); Lymphocytes % (auto) 7.7 %; Mean Corpuscular Hemoglobin 29.1 pg (25.0-34.0); Mean Corpuscular Hgb Conc 32.7 g/dL (32.0-36.0); Mean Platelet Volume 12.2 fL (9.4-12.4); Monocytes % (auto) 6.4 %; Neutrophils % (auto) 85.4 %; Platelet Count 212 K/uL (130-400); RDW Coefficient of Variation 12.9 % (11.5-14.5); RDW Standard Deviation 42.5 fL (36.4-46.3); Red Blood Count 4.09 M/uL (4.63-6.08); White Blood Count 10.89 K/ul (4.8-10.8)
[2022-03-09 11:06] LABS: iSTAT Creatinine 1.3 mg/dl (0.6-1.3); iSTAT Hemoglobin 11.9 g/dl (14.0-18.0); iSTAT Ionized Calcium 1.02 mmol/l (1.12-1.32); iSTAT Potassium 4.5 mmol/L (3.3-5.0)
[2022-03-09] MEDS ORDERED: ACETAMINOPHEN 1,000 MG/100 ML VIAL IV STA (11:13)
[2022-03-09] MEDS ORDERED: LORazepam 2 MG/1 ML VIAL IV STA (11:13)
[2022-03-09] MEDS ORDERED: SODIUM CHLORIDE 0.9% 1000ML 1,000 ML IV ONE (11:13)
[2022-03-09 11:19] LABS: INR 1.2 (0.9-1.1); Partial Thromboplastin Ratio 0.9; Partial Thromboplastin Time 23.7 Seconds (21.0-31.0); Prothrombin Time 12.4 Seconds (9.0-12.0)
[2022-03-09 11:22] LABS: Alanine Aminotransferase 19 U/L (7-52); Albumin Globulin Ratio 1.6 (0.9-2); Albumin Level 3.3 gm/dl (3.4-5.0); Alkaline Phosphatase 67 U/L (34-104); Anion Gap 12 (3-11); Aspartate Aminotransferase 21 U/L (13-39); BUN Creatinine Ratio 22.2 (10-20); Bilirubin,Total 0.9 mg/dl (0.2-1.0); Blood Urea Nitrogen 26 mg/dl (6-23); Calcium 8.4 mg/dl (8.5-10.1); Carbon Dioxide 21 mmol/L (21-32); Chloride 105 mmol/L (98-107); Est GFR (Non-African American) 56.9 ml/min; Globulin 2.1 gm/dl (2.5-4.0); Glucose 119 mg/dl (70-99(Fasting)); Magnesium 1.5 mg/dl (1.7-2.4); Potassium 4.6 mmol/L (3.5-5.1); Sodium 138 mmol/L (136-145); Total Protein 5.4 gm/dl (6.0-8.3)
[2022-03-09 11:27] LABS: Troponin I High Sensitivity 6.1 pg/ml (0-20)
[2022-03-09] MEDS ORDERED: CALCIUM GLUCONATE 1,000 MG/60 ML BAG IV STA (11:47)
[2022-03-09] MEDS ORDERED: MAGNESIUM SULFATE / D5W 1 GM/100 ML BAG IV STA (11:48)
--- NOTE | 2022-03-09 12:07 | CT Scan Report ---
CT SCAN OF THE ABDOMEN WITHOUT IV CONTRAST CLINICAL HISTORY: Upper abdominal pain. Nausea and vomiting. COMPARISON STUDY: Abdominal CT dated 01/26/2009. TECHNIQUE: CT scan of the abdomen is performed from the lung bases to the pelvic inlet Images are rev iewed in the axial, sagittal, and coronal planes. IV contrast was not administered for this examinati on. Note that the examination is significantly suboptimal without oral and IV contrast. A dose loweri ng technique was utilized adhering to the principles of ALARA. CT DOSE: 636.23 mGycm FINDINGS: Lung bases: The heart is top normal in size and without pericardial effusion. The lung bases are sindy r. There is a small hiatal hernia. Postoperative change is noted at the gastroesophageal junction. Liver: The unenhanced liver is normal in size, contour, and attenuation. There is no intrahepatic moises iary ductal dilatation. Gallbladder: Surgically absent noting clips in the gallbladder fossa. Spleen: Normal in size and attenuation. Pancreas: Moderately atrophic and grossly unremarkable. Adrenal glands: Unremarkable. Kidneys: The unenhanced kidneys demonstrate mild cortical atrophy and are without hydronephrosis. The presence renal calculi cannot be assessed due to excreted IV contrast within the renal collecting sy stem and partially visualized bladder. There is no evidence of contour deforming renal mass lesion. R enal sinus cysts are seen bilaterally. Abdominal vasculature: The abdominal aorta is normal in course and caliber noting moderate atheroscle rotic calcification. Bowel: There is evidence of multiple bowel resections. There are distended and fluid-filled loops of small bowel in the left upper quadrant which measure up to 4.2 cm in diameter. Loops of small bowel i n the right lower quadrant are decompressed, and a transition point is suggested at an anastomotic si te in the central lower abdomen on image #222. Appearance is typical for small bowel obstruction. The re is no pneumatosis intestinalis or portal venous gas. There are also decompressed segments of the l eft colon. Liquid stool is noted in the right colon. The appendix is not identified and reported kelsea gically absent Peritoneum: There is no intraperitoneal free air or abdominal ascites. A midline surgical scar is not ed. Lymphadenopathy: None. Skeletal structures: The skeletal structures are osteopenic. Mild to moderate lumbosacral spondylosis is observed. No lytic or blastic lesions are seen. IMPRESSION: 1. Significantly suboptimal examination without oral and IV contrast. The pelvis was not imaged. 2. There is evidence of several previous bowel resections. 3. There are distended and fluid-filled loops of proximal small bowel in left upper quadrant, as well as decompressed loops of distal small bowel. A transition point is identified at an anastomosis in t he central lower pelvis, and the appearance is typical for bowel obstruction. Clinical correlation wi ll be required. 4. Liquid stool is noted in the right colon. 5. Additional findings as above. ACT 112: Negative or not required by law. Electronically signed by: Harsh Smalls M.D. 03/09/2022 12:05 PM
--- NOTE | 2022-03-09 14:05 | XRay Report ---
KUB HISTORY: Status post placement of an enteric tube NG placement COMPARISON: CT abdomen and pelvis 03/09/2022 FINDINGS: Status post placement of an enteric tube with distal tip projected over the mid stomach. Ch olecystectomy. Contrast is noted within the renal collecting systems. Dilated air-filled large bowel. The lower abdomen is excluded from the [id number]. The imaged lung mcneill appear clear. No renal calculi. No ureteral calculi. No pneumoperitoneum or pneumatosis. No fracture. IMPRESSION: Status post placement of an enteric tube, distal tip projected over the stomach. ACT 112: Negative or not required by law. The above report was generated using voice recognition software. It may contain grammatical, syntax o r spelling errors. Electronically signed by: Bruce Gudino M.D. 03/09/2022 2:04 PM
[2022-03-09] MEDS ORDERED: PHARMACIST DISCHARGE MED REC CONSULT PRN (14:20)
--- NOTE | 2022-03-09 14:33 | History & Physical Report ---
Date of Service March 09, 2022 Assessment & Plan (1) Small bowel obstruction: Plan: Patient is 86 y/o M with PMH CVA, HLD, recurrent SBO, s/p bowel resection, BPH, history SVT, RBBB presented to ER with c/o vomiting this am after taking protonix. Denies hematemesis, abdominal pain, fever or chills. Last BM [address] abd/pelvis: There is evidence of several previous bowel resections. There are distended and fluid-filled loops of proximal small bowel in left upper quadrant, as well as decompressed loops of distal small bowel. A transition point is identified at an anastomosis in the central lower pelvis, and the appearance is typical for bowel obstruction. In ER NG tube placed. No vomiting while in ER -Continue NG tube -NPO -General surgery consult. ER notified communications programmer who is aware -CBC, BMP in am (2) Stroke-like symptoms: (3) CVA (cerebral vascular accident): Plan: History CVA 05/2021 Today c/o left hand tingling. Reports tingling almost resolved while in ER. In ER telestroke consultation with differential diagnosis metabolic encephalopathy versus posterior circulation stroke. Patient was out of the 4 and half hour window for IV thrombolytics. CT head no acute findings CTA head and neck: unremarkable -Tele to monitor for arrhythmias -A1C, lipid panel in am -MRI brain pending -Obtain Echo. History Echo 05/2021: EF: 60-65%, grade 1 diastolic dysfunction, patent foramen ovale present -PT/OT consult -On atorvastatin at home, hold now while NPO -Give aspirin VA now as NPO. On oral aspirin at home -neurology consult (4) Hypomagnesemia: Plan: In ER magnesium: 1.5. Was given 1 g magnesium sulfate -Monitor (5) History of supraventricular tachycardia: Plan: History sinus node dysfunction -Monitor on telemetry (6) Anemia: Plan: Hgb: 11.9. Was 11.9 02/20/22 -Monitor (7) Schatzki's ring: Plan: Recent food bolus 02/21/22 had EGD with removal food bolus and two bleeding deep esophageal ulcers/rents that were clipped -On oral PPI at home that will change to IV while NPO (8) BPH (benign prostatic hyperplasia): Plan: -Plan to resume home finasteride, doxazosin when able (9) HLD (hyperlipidemia): Plan: -Resume atorvastatin when able DVT Prophylaxis -SCDs for now Full Code as per discussion with pt Follows with Dr Grant Gold for routine care Pt was seen and care coordinated with Dr Alexander. See addendum History of Present Illness Chief Complaint: vomiting, left hand tingling Primary Care Provider: Grant Gold DO Patient is 86 y/o M with PMH CVA, HLD, recurrent SBO, s/p bowel resection, BPH, history SVT, RBBB presented to ER with c/o vomiting this am and left hand tingling. Patient states this morning he took his Protonix and shortly after he vomited once. Denies abdominal pain, hematemesis. States that he started with tingling to his left hand. He did not notice any left hand or upper extremity weakness. Patient denies headache but states "my head feels funny". Patient states last BM 2 days ago and was hard small stool. He reports he has been having liquid diet since his EGD 02/21/2022. He feels has been having generalized weakness while on liquid diet as he thought he had to continue on this. (Discharge report reviewed and patient was to be on liquid diet for 3 days following EGD). Patient had food bolus 02/21/2022 and had EGD with removal of food bolus and had two bleeding deep esophageal ulcers/rents that were clipped, also noted moderate Schatzki ring. He reports for over 10 months has been having dizziness with sitting and standing. Reports has been having "shadows in his vision" after prolonged walking that has been ongoing for 10 months as well. 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 History CVA in 05/2021. Denies fever/chills, diaphoresis, melena, hematochezia, syncope, loss of vision, neck pain, CP, SOB, orthopnea, palpitations, cough, sore throat, choking, otalgia, rhinorrhea, extremity edema, rashes, urinary symptoms. In ER patient found to have SBO. NG tube placed. No vomiting while in ER. Initial CT head no acute findings. Had telestroke consultation with differential diagnosis metabolic encephalopathy versus posterior circulation stroke. Patient was out of the 4 and half hour window for IV thrombolytics. Allergies Allergy/AdvReac Type Severity Reaction Status Date / Time thiamine (vitamin B1) Allergy Mild RASH Verified 02/20/22 23:27 Penicillins Allergy Unknown RASH Verified 02/20/22 23:27 soy Allergy Unknown SHAKY, Verified 02/20/22 23:27 CHILLS, BM Home Medications Medication Instructions Recorded Confirmed Type doxazosin 4 mg tablet (Cardura) 8 mg PO HS 05/25/21 03/09/22 History finasteride 5 mg tablet (Proscar) 5 mg PO DAILY 05/25/21 03/09/22 History atorvastatin 40 mg tablet 40 mg PO QAM #30 tabs 05/26/21 03/09/22 Rx fluticasone propionate 50 2 spray intranasal DAILY 02/20/22 03/09/22 History mcg/actuation nasal spray,suspension vit C 250 mg-vit E 90 mg-zinc 40 1 tab PO AMHS 02/20/22 03/09/22 History mg-copper 1 [id number] capsule (PreserVision AREDS-2) pantoprazole 40 mg tablet,delayed 40 mg PO DAILY #30 tabs 02/21/22 03/09/22 Rx release aspirin 81 mg tablet,delayed 81 mg PO HS 03/09/22 03/09/22 History release Past Med/Surg History Medical History (Updated 03/09/22 @ 15:20 by Lisa Connell PA-C) Anemia BPH (benign prostatic hyperplasia) CVA (cerebral vascular accident) History of supraventricular tachycardia HLD (hyperlipidemia) Schatzki's ring Small bowel obstruction Surgical History H/O abdominal surgery 2008; bowel adhesion. Dr Carlson at [facility] History of appendectomy History of arthroscopy of right shoulder History of cholecystectomy History of colonoscopy History of esophagogastroduodenoscopy (EGD) History of laparotomy 2006-exploratory laparotomy/lysis of adhesions at [facility] History of resection of small bowel 2008. Dr. Carlson at [facility] Family History (Updated 03/09/22 @ 15:16 by Lisa Connell PA-C) Family/Other Coronary heart disease Social History (Reviewed 03/09/22 @ 15:15 by ANTONIO Almanza Smoking Status: Never smoker Hx Alcohol Use: No Hx Substance Use: No Preferred Language: P[place]in[place] Communication Ability: Effective Call Center Associate Required: No Beliefs That Will Affect Care: None marital status: Current Living Situation: Spouse How many Children do You have: 3 Feels Safe at Home: Yes Assistive Devices: None Review of Systems Review of Systems: All systems reviewed & are unremarkable except as noted in HPI & below Physical Exam Physical Exam: General: no distress, WDWN Head: normocephalic, atraumatic Eyes: PERRL, EOM's intact, conjunctiva non-injected, anicteric ENT: normal inspection external ears, nose, mucous membranes dry Neck: supple, trachea midline, non-tender Lungs: clear, no respiratory distress, no wheezing/rhonchi/rales CV: RRR, no murmur, no pretibial edema Abd: +healed surgical scar, hypoactive BS, soft, +slight tenderness to palpation across lower abdomen Ext: no cyanosis, no calf tenderness Neuro: A&O x 3, normal affect, No nystagmus. facial sensation is intact and symmetric, face is strong and symmetric, hearing grossly intact, soft palate elevates symmetrically, no dysarthria, shoulder shrug intact, tongue is midline, normal movement, no fasciculations. Strength 5/5 bilateral upper and lower extremities Skin: warm, dry Results & Data Results & Data ([facility]) Vital Signs (Past 12 Hours) Vital Signs Temp Pulse Pulse Resp BP BP Pulse Ox 03/09/22 13:00 88 16 139/70 99 03/09/22 12:17 84 19 141/59 H 98 03/09/22 11:31 99 03/09/22 11:31 03/09/22 11:00 36.8 C 83 18 125/78 94 03/09/22 10:43 91 H 14 123/78 99 O2 Del Method 03/09/22 13:00 Room Air 03/09/22 12:17 Room Air 03/09/22 11:31 Room Air 03/09/22 11:31 Room Air 03/09/22 11:00 Room Air 03/09/22 10:43 Laboratory Results Short CBC 03/09/22 Range/Units 10:51 WBC 10.89 H (4.8-10.8) K/ul Hgb 11.9 L (14.0-18.0) g/dl Hct 36.4 L (40.1-51.0) % Plt Count 212 (130-400) K/uL BMP 03/09/22 10:51 Sodium 138 Potassium 4.6 Chloride 105 Carbon Dioxide 21 BUN 26 H Creatinine 1.17 Glucose 119 H Calcium 8.4 L Liver Function 03/09/22 Range/Units 10:51 Total Bilirubin 0.9 (0.2-1.0) mg/dl AST 21 (13-39) U/L ALT 19 (7-52) U/L Alkaline Phosphatase 67 (34-104) U/L Albumin 3.3 L (3.4-5.0) gm/dl Diagnostic Findings Head CT 03/09/22 10:[address] DOSE: HISTORY: Slurred speech. Vomiting. Visual disturbance. Stroke Like Symptoms TECHNIQUE: Multiaxial CT images of the head were performed without the use of intravenous contrast. Automated exposure control was utilized for this study. A dose lowering technique was utilized adhering to the principles of ALARA. Comparison: Brain MRI outside hospital 05/24/2021. Head CT 05/25/2021. Findings: The paranasal sinuses and mastoid air cells are clear. The calvarium and skull base are intact. There is no mass, hematoma, midline shift, acute infarct. White matter hypodensity is nonspecific but suggestive of microvascular ischemic change. The ventricles and sulci demonstrate mild age-related involutional changes. Mild motion artifact. Impression: No acute intracranial abnormality. Atrophy and microvascular ischemic changes. ACT 112: Negative or not required by law. Electronically signed by: Amauri Clark M.D. 03/09/2022 10:50 AM Head CTA 03/09/22 10:20 HEAD CTA HISTORY: Visual disturbance. Slurred speech. Stroke Like Symptoms TECHNIQUE: Multiaxial CT images of the head were performed following the intravenous administration of contrast to evaluate the major cerebral vessels. Maximum intensity projection images were also obtained. A dose lowering technique was utilized adhering to the principles of ALARA. COMPARISON: Head CT 05/25/2021. FINDINGS: There is no mass, hematoma, midline shift, or acute infarct. Visualized intracranial internal carotid arteries, distal vertebral arteries, and basilar artery are widely patent. There is no significant stenosis, occlusion, or aneurysm seen within the bilateral ACAs, MCAs, or website programmer. There is a hypoplastic distal right vertebral artery. There is a persistent right posterior circulation. The major dural venous sinuses are patent. IMPRESSION: No significant stenosis, occlusion, or aneurysm within the [place]. ACT 112: Negative or not required by law. Electronically signed by: Amauri Clark M.D. 03/09/2022 10:53 AM Neck CTA 03/09/22 10:20 CT ANGIOGRAM OF THE NECK CLINICAL HISTORY: Strokelike symptoms. COMPARISON STUDY: Carotid artery ultrasound dated 05/26/2021. TECHNIQUE: Following the IV administration of 120 of Optiray 320, CT angiogram of the neck was performed from the aortic arch to the skull base. Images are reviewed in the axial, sagittal, and coronal planes. 3-D MIPS images are created and assessed. IV contrast was administered without complication. All measurements were calculated based on NASCET criteria. A dose lowering technique was utilized adhering to the principles of ALARA. CT DOSE: 1102.99 mGy.cm FINDINGS: Thoracic aorta: Visualized portions of the thoracic aorta are normal in caliber. The aortic arch demonstrates bovine variant anatomy. Right carotid arterial system: The right common carotid artery is widely patent, as are the right internal and external carotid arteries. Mild plaque is noted in the carotid bulb. There is tortuosity of the distal ICA. Left carotid arterial system: The left common carotid artery is widely patent, as are the left internal and external carotid arteries. Mild calcified plaque is noted in the carotid bulb. Vertebral arteries: The vertebral arteries are widely patent bilaterally noting left-sided dominance. Subclavian arteries: Widely patent bilaterally. Intracranial vasculature: The visualized intracranial vessels at the skull base are patent. The left vertebral artery is dominant. Jugular veins: Widely patent bilaterally. Brain parenchyma: The visualized brain parenchyma the skull base is within normal limits. Lung apices: Partially visualized upper lobe lung parenchyma appears clear. Soft tissues: The visualized pharyngeal soft tissues are normal in appearance noting angiographic phase technique. The oropharyngeal airway appears widely patent. The salivary and thyroid glands are normal in appearance. No cervical lymphadenopathy is seen. Skeletal structures: The skeletal structures are osteopenic. The visualized calvarium at the skull base appears intact. The imaged cervical spine is maintained noting mild multilevel spondylosis. No lytic or blastic lesion is seen. Sinuses and mastoids: The visualized paranasal sinuses are clear. The mastoid air cells are well pneumatized. IMPRESSION: Unremarkable CT angiogram of the neck. ACT 112: Negative or not required by law. Electronically signed by: Harsh Smalls M.D. 03/09/2022 10:50 AM Abdomen/Pelvis CT 03/09/22 11:13 CT SCAN OF THE ABDOMEN WITHOUT IV CONTRAST CLINICAL HISTORY: Upper abdominal pain. Nausea and vomiting. COMPARISON STUDY: Abdominal CT dated 01/26/2009. TECHNIQUE: CT scan of the abdomen is performed from the lung bases to the pelvic inlet Images are reviewed in the axial, sagittal, and coronal planes. IV contrast was not administered for this examination. Note that the examination is significantly suboptimal without oral and IV contrast. A dose lowering technique was utilized adhering to the principles of ALARA. CT DOSE: 636.23 mGycm FINDINGS: Lung bases: The heart is top normal in size and without pericardial effusion. The lung bases are clear. There is a small hiatal hernia. Postoperative change is noted at the gastroesophageal junction. Liver: The unenhanced liver is normal in size, contour, and attenuation. There is no intrahepatic biliary ductal dilatation. Gallbladder: Surgically absent noting clips in the gallbladder fossa. Spleen: Normal in size and attenuation. Pancreas: Moderately atrophic and grossly unremarkable. Adrenal glands: Unremarkable. Kidneys: The unenhanced kidneys demonstrate mild cortical atrophy and are without hydronephrosis. The presence renal calculi cannot be assessed due to excreted IV contrast within the renal collecting system and partially visualized bladder. There is no evidence of contour deforming renal mass lesion. Renal sinus cysts are seen bilaterally. Abdominal vasculature: The abdominal aorta is normal in course and caliber noting moderate atherosclerotic calcification. Bowel: There is evidence of multiple bowel resections. There are distended and fluid-filled loops of small bowel in the left upper quadrant which measure up to 4.2 cm in diameter. Loops of small bowel in the right lower quadrant are decompressed, and a transition point is suggested at an anastomotic site in the central lower abdomen on image #222. Appearance is typical for small bowel obstruction. There is no pneumatosis intestinalis or portal venous gas. There are also decompressed segments of the left colon. Liquid stool is noted in the right colon. The appendix is not identified and reported surgically absent Peritoneum: There is no intraperitoneal free air or abdominal ascites. A midline surgical scar is noted. Lymphadenopathy: None. Skeletal structures: The skeletal structures are osteopenic. Mild to moderate lumbosacral spondylosis is observed. No lytic or blastic lesions are seen. IMPRESSION: 1. Significantly suboptimal examination without oral and IV contrast. The pelvis was not imaged. 2. There is evidence of several previous bowel resections. 3. There are distended and fluid-filled loops of proximal small bowel in left upper quadrant, as well as decompressed loops of distal small bowel. A transition point is identified at an anastomosis in the central lower pelvis, and the appearance is typical for bowel obstruction. Clinical correlation will be required. 4. Liquid stool is noted in the right colon. 5. Additional findings as above. ACT 112: Negative or not required by law. Electronically signed by: Harsh Smalls M.D. 03/09/2022 12:05 PM KUB X-Ray 03/09/22 13:26 KUB HISTORY: Status post placement of an enteric tube NG placement COMPARISON: CT abdomen and pelvis 03/09/2022 FINDINGS: Status post placement of an enteric tube with distal tip projected over the mid stomach. Cholecystectomy. Contrast is noted within the renal collecting systems. Dilated air-filled large bowel. The lower abdomen is excluded from the [id number]. The imaged lung mcneill appear clear. No renal calculi. No ureteral calculi. No pneumoperitoneum or pneumatosis. No fracture. IMPRESSION: Status post placement of an enteric tube, distal tip projected over the stomach. ACT 112: Negative or not required by law. The above report was generated using voice recognition software. It may contain grammatical, syntax or spelling errors. Electronically signed by: Bruce Gudino M.D. 03/09/2022 2:04 PM ECG Rate (beats per minute): 90 Rhythm: sinus rhythm Findings: + LAFB, + Q waves (Inferior) and + RBBB Comparison ECG Date: from (05/25/21. Prior RBBB, Q waves inferior leads ) Supervising Physician Co-Signing Physician Notes 86 yo M w/ PMH of CVA, HLD, SVT, Schatzki's ring, BPH, SBO, abd Sx hx presented 03/09 w/ c/o vomiting x 1 today AM. Pt also reports LUE numbness and funny sensation in the head since today. Reports Last BM 2 days ago [employer] and no gas mo ving today. Admitting CTAP s/p bowel obstruction. Pt reports improvement in tingling sensation LUE at bedside exam. ER did telestroke consultation, reviewed. CT Head and CTA head and neck w/ no acute finding. Telemetry, MRI brain, stroke protocol and neuro consult. ECHO. Gen Sx/NPO/PPI/NG tube for SBO. Resume home meds when able. Monitor and replete electrolytes. Upon Exam GENERAL: Alert and oriented x3. NAD, on RA. HEENT: No pallor, no icterus. Pupils equal, round and reactive to light. Oral mucosa moist. NECK: No JVD, no neck masses. HEART: S1 and S2 heard. Regular rate and rhythm. No murmur, no gallop. RESPIRATORY SYSTEM: Normal AP diameter. No accessory muscle use. No wheezing, no crackles. ABDOMEN: Soft, bowel sounds present, lower belly mild tenderness, no distention. Healed midline surgical scar. CENTRAL NERVOUS SYSTEM: No facial droop. Speech is clear. Obeys simple commands. Moves extremities. EXTREMITIES: No edema, no erythema seen. I have seen and examined the patient and have discussed the case with the provider above. I agree with the assessment and plan as stated.
--- NOTE | 2022-03-09 15:21 | Electrocardiogram Report ---
Test Reason : Blood Pressure : / mmHG Vent. Rate : 090 BPM Atrial Rate : 090 BPM P-R Int : 188 ms QRS Dur : 132 ms QT Int : 404 ms P-R-T Axes : 018 -59 040 degrees QTc Int : 494 ms Poor data quality, interpretation may be adversely affected Normal sinus rhythm Right bundle branch block Left anterior fascicular block Bifascicular block Inferior infarct (cited on or before 25-MAY-2021) Abnormal ECG When compared with ECG of 20-FEB-2022 21:32, NV interval has decreased Confirmed by Scott Gomez ([id number]) on 03/09/2022 3:20:52 PM Referred By: REFERRED SELF Confirmed By:Kashif Gomez
--- NOTE | 2022-03-09 15:54 | Magnetic Resonance Report ---
MR brain wo con HISTORY: 86 years-old Male L arm numbness, METZ; h/o thalamic lacunar infarct acute stroke like sympto ms with left upper extremity weakness COMPARISON: Head CT, CTA head and neck studies of same day TECHNIQUE: Multiplanar multisequence MRI of the brain was obtained without the use of IV contrast. FINDINGS: No restricted diffusion to suggest acute or subacute infarct. Midline structures appear unremarkable with degenerative changes of the cervical spine. Partially empty sella. There is no acute intracrania l hemorrhage, midline shift, abnormal extra-axial collection, hydrocephalus or intracranial mass. Inv olutional changes with mild T2/FLAIR hyperintense foci throughout the white matter. Study is motion d egraded, notably the coronal flair series. Cerebral venous sinuses and major arterial flow voids appear patent. Mastoid air cells are clear. Miriam or bilateral lens repair. Minimal mucosal thickening of the paranasal sinuses. The skull, orbits and soft tissues are unremarkable. IMPRESSION: 1. No acute intracranial abnormality. No acute or subacute infarct. 2. Involutional changes with chronic microvascular ischemic disease. ACT 112: Negative or not required by law. The above report was generated using voice recognition software. It may contain grammatical, syntax o r spelling errors. Electronically signed by: Bruce Gudino M.D. 03/09/2022 3:52 PM
[2022-03-09] MEDS ORDERED: ONDANSETRON INJ 2 MG/ML 2 ML VIAL IV PRN (15:59)
[2022-03-09] MEDS ORDERED: ACETAMINOPHEN 1,000 MG/100 ML VIAL IV PRN (15:59)
[2022-03-09] MEDS: MAGNESIUM SULFATE / D5W 1 GM/100 ML BAG IV SCH ×2 (16:05→17:34)
[2022-03-09] MEDS: SODIUM CHLORIDE 0.9% 1000ML 1,000 ML IV SCH (16:09)
--- NOTE | 2022-03-09 17:29 | XRay Report ---
KUB HISTORY: Status post placement of an enteric tube new NGT COMPARISON: KUB obtained earlier today FINDINGS: Enteric tube is again noted with distal tip projected over the proximal to mid stomach. The side-port projects over the distal esophagus, mildly retracted in the interval. Cholecystectomy with additional surgical clips projected over the upper abdomen. Contrast is noted within the renal colle cting systems. Dilated air-filled large bowel. The lower abdomen is excluded from the [id number]. The imaged lung mcneill appear clear. No renal calculi. No ureteral calculi. No pneumoperitoneum or pn eumatosis. No acute fracture. IMPRESSION: Distal tip of enteric tube projects over the proximal to mid stomach. ACT 112: Negative or not required by law. The above report was generated using voice recognition software. It may contain grammatical, syntax o r spelling errors. Electronically signed by: Bruce Gudino M.D. 03/09/2022 5:27 PM
[2022-03-09] MEDS: ASPIRIN 300 MG SUPP PR SCH (21:03)
[2022-03-09] MEDS: PANTOprazole 40 MG in SYRINGE 0 ML IV SCH (21:10)
[2022-03-10] MEDS ORDERED: Nursing to Pharmacy Communication SCH (05:30)
[2022-03-10] MEDS: SODIUM CHLORIDE 0.9% 1000ML 1,000 ML IV SCH (05:45)
[2022-03-10 07:03] LABS: Basophils # (auto) 0.02 K/uL (0-0.2); Basophils % (auto) 0.2 %; Eosinophils # (auto) 0.12 K/uL (0-0.50); Eosinophils % (auto) 1.4 %; Hemoglobin 11.1 g/dl (14.0-18.0); Immature Granulocytes # (auto) 0.03 K/uL (0.00-0.02); Immature Granulocytes % (auto) 0.4 %; Lymphocytes % (auto) 23.7 %; Mean Corpuscular Hemoglobin 29.3 pg (25.0-34.0); Mean Corpuscular Hgb Conc 32.6 g/dL (32.0-36.0); Mean Corpuscular Volume 89.7 fL (80.0-100.0); Mean Platelet Volume 12.6 fL (9.4-12.4); Monocytes # (auto) 0.71 K/uL (0.24-0.82); Monocytes % (auto) 8.4 %; Neutrophils # (auto) 5.55 K/uL (1.4-6.5); Neutrophils % (auto) 65.9 %; Platelet Count 208 K/uL (130-400); RDW Coefficient of Variation 13.4 % (11.5-14.5); RDW Standard Deviation 43.9 fL (36.4-46.3); Red Blood Count 3.79 M/uL (4.63-6.08); White Blood Count 8.43 K/ul (4.8-10.8)
[2022-03-10 07:33] LABS: BUN Creatinine Ratio 19.2 (10-20); Calcium 7.3 mg/dl (8.5-10.1); Chol HDL Ratio 2.7 (0-5); Creatinine Clr Calc Pharmacy 51.2 ml/min; Est GFR (African American) 76.1 ml/min; Est GFR (Non-African American) 65.6 ml/min; Magnesium 2.3 mg/dl (1.7-2.4); Potassium 3.8 mmol/L (3.5-5.1)
[2022-03-10] MEDS: PANTOprazole 40 MG in SYRINGE 0 ML IV SCH ×2 (07:49→20:28)
--- NOTE | 2022-03-10 07:56 | Hospitalist Progress Note ---
Date of Service March 10, 2022 Assessment & Plan (1) Small bowel obstruction: Plan: - presented with vomiting x1 - CT-AP with evidence of SBO - NGT placed in ED - continue for now - NPO - General surgery consult - monitor for flatus, BMs (2) Stroke-like symptoms: Plan: - left arm tingling without weakness - h/o CVA 05/2021 - CTA head and neck negative - MRI brain negative for acute stroke - tele monitoring - TTE ordered - TTE from 05/2021 with G1DD, normal LVEF, patent foramen ovale - continue ASA suppository while NPO - follow up neuro recs (3) History of CVA (cerebrovascular accident): Plan: - h/o CVA 05/2021 - on Aspirin and statin - holding statin while NPO with SBO - Aspirin suppository in ED - continue ASA ME for now (4) Hypomagnesemia: Plan: - replete prn - Monitor (5) History of supraventricular tachycardia: Plan: - History sinus node dysfunction - Monitor on telemetry (6) Anemia: Plan: - hgb stable - Monitor (7) Schatzki's ring: Plan: - Recent food bolus 02/21/22 had EGD with removal food bolus and two bleeding deep esophageal ulcers/rents that were clipped - On oral PPI at home that will change to IV while NPO - outpatient GI follow up (8) BPH (benign prostatic hyperplasia): Plan: - Plan to resume home finasteride, doxazosin when able (9) HLD (hyperlipidemia): Plan: - Resume atorvastatin when able Plan DVT Ppx: SCDs pending Surgery evaluation Full Code PCP: Follows with Dr Grant Gold for routine care Ag Bertrand MD [facility] Medicine Admission and Anticipated Discharge Date Admission Date: March 09, 2022 Subjective The patient is an 86 year old man with pmh CVA 05/2021, HLD, 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 Of note, discharge report from 02/21/2022 reviewed and patient was to be on liquid diet for 3 days following EGD but continued until this presentation - last admission Patient had food bolus 02/21/2022 and had EGD with removal of food bolus and had two bleeding deep esophageal ulcers/rents that were clipped, also noted moderate Schatzki ring. Stroke work up in the ED was negative including MRI. CT-AP found to have SBO, NGT placed in ED. General surgery consulted. The patient feels better today. Says pain in abdomen has improved since yesterday. Denies n/v, cough, chest pain, shortness of breath, dysuria. Reports passing flatus. Otherwise doing well. Physical Exam Physical Exam: General: no distress, WDWN Head: normocephalic, atraumatic Eyes: PERRL, EOM's intact, conjunctiva non-injected, anicteric ENT: normal inspection external ears, nose, mucous membranes dry Neck: supple, trachea midline, non-tender Lungs: clear, no respiratory distress, no wheezing/rhonchi/rales CV: RRR, no murmur, no pretibial edema Abd: +healed surgical scar, hypoactive BS, soft, +slight tenderness to palpation across lower abdomen Ext: no cyanosis, no calf tenderness Neuro: A&O x 3, normal affect, No nystagmus. facial sensation is intact and symmetric, face is strong and symmetric, hearing grossly intact, soft palate elevates symmetrically, no dysarthria, shoulder shrug intact, tongue is midline, normal movement, no fasciculations. Strength 5/5 bilateral upper and lower extremities Skin: warm, dry Results & Data Results & Data ([facility]) Vital Signs (Past 12 Hours) Vital Signs Temp Pulse Pulse Resp BP Pulse Ox O2 Del Method 03/10/22 07:32 74 03/10/22 06:39 36.8 C 76 20 126/62 97 Room Air 03/10/22 03:59 36.8 C 72 20 117/52 L 96 Room Air 03/10/22 00:37 81 03/10/22 00:06 36.9 C 83 20 112/44 L 97 Room Air 03/09/22 20:04 37.3 C 92 H 20 113/54 L 97 Room Air Laboratory Results Short CBC 03/09/22 03/10/22 Range/Units 10:51 06:01 WBC 10.89 H 8.43 (4.8-10.8) K/ul Hgb 11.9 L 11.1 L (14.0-18.0) g/dl Hct 36.4 L 34.0 L (40.1-51.0) % Plt Count 212 208 (130-400) K/uL BMP 03/09/22 03/10/22 10:51 06:01 Sodium 138 140 Potassium 4.6 3.8 Chloride 105 110 H Carbon Dioxide 21 24 BUN 26 H 20 Creatinine 1.17 1.04 Glucose 119 H 83 Calcium 8.4 L 7.3 L Liver Function 03/09/22 Range/Units 10:51 Total Bilirubin 0.9 (0.2-1.0) mg/dl AST 21 (13-39) U/L ALT 19 (7-52) U/L Alkaline Phosphatase 67 (34-104) U/L Albumin 3.3 L (3.4-5.0) gm/dl Medications Administered Current Inpatient Medications Aspirin (Aspirin 300 Mg Supp) 150 mg ME HS RAHUL Stop: 04/08/22 20:59 Last Admin: 03/09/22 21:03 Dose: 150 mg Sodium Chloride (Nss 1000ml) 1,000 mls @ 75 mls/hr IV .[id number] RAHUL Stop: 03/11/22 08:34 Last Admin: 03/10/22 05:45 Dose: 75 mls/hr Pantoprazole Sodium 40 mg/ (Syringe) 10 mls @ 5 mls/min IV BID RAHUL Stop: 04/08/22 20:59 Last Admin: 03/09/22 21:10 Dose: 5 mls/min Acetaminophen (Ofirmev) 1,000 mg in 100 mls @ 400 mls/hr IV Q8H PRN PRN Reason: Pain or Fever Stop: 03/12/22 15:58 Miscellaneous Information (Pharmacist Discharge Med Rec Consult) 1 each N/A UD PRN PRN Reason: Consult Stop: 04/08/22 14:19 Ondansetron HCl (Ondansetron Inj 2 Mg/Ml 2 Ml Vial) 4 mg IV Q6H PRN PRN Reason: Nausea Stop: 04/08/22 15:58
--- NOTE | 2022-03-10 08:11 | Neurology Consultation ---
Date of Consultation March 10, 2022 Assessment & Plan (1) Stroke-like symptoms: (2) History of CVA (cerebrovascular accident): Plan Transient strokelike symptoms characterized by numbness and tingling to the left hand only, lasting 30 minutes, followed by complete resolution without recurrence, occurring in the context of nausea and vomiting, small bowel obstruction. Patient had already been taking daily low-dose aspirin and atorvastatin in the context of a prior ischemic infarct occurring in May 2021. He should continue with these medications although aspirin will be given per rectum and atorvastatin will be held as he is currently n.p.o. due to small bowel obstruction. Surgical consultation pending this morning. No significant vascular lesions on CT angiography of the head and neck. An echocardiogram completed this past May did reveal a patent rodriguez ovale which is considered a potential risk factor for cardioembolic stroke. It is notable that his previous brain MRI done at an outpatient facility had also suggested an old lacunar infarct within the right cerebellar hemisphere, in addition to the subacute lacunar infarct within the left thalamus at that time. Further, his current presentation with left hand numbness would seem to suggest localization to the right cerebral hemisphere. Therefore, an underlying cardioembolic etiology cannot be excluded. However, small lacunar infarcts are often considered most compatible with small vessel ischemic disease and other cardiovascular risk factors such as hypertension, and dyslipidemia, rather than cardioembolism. It is encouraging this patient's recent brain MRI does not reveal any evidence o f an acute or subacute ischemic stroke. The study is technically compromised by motion artifact, however. He is not hypertensive currently and his lipid panel is normal with an LDL of only 32. I agree with continuing aspirin per rectum for the time being, restart atorvastatin when able to reliably take oral medication. However, resumption of oral antiplatelet therapy will depend on the status of his small bowel obstruction and pending surgical consultation recommendations. If patient is medically cleared from that standpoint, would be appropriate to go with dual antiplatelet therapy, both daily low-dose aspirin and Plavix 75 mg/day for 3 weeks, followed by return to antiplatelet monotherapy with either aspirin or Plavix. I do agree with checking a repeat echocardiogram. This patient does have a PFO as identified on a previous study. Would consider checking a lower extremity ultrasound to exclude DVT. If patient were to have another stroke or TIA going forward, would not be unr easonable to consider switching to an anticoagulant or getting a consultation with cardiology regarding potential PFO closure. However, given this patient's relatively advanced age, I am uncertain if PFO closure would be necessary. Consider obtaining mobile cardiac outpatient telemetry. No further immediate recommendations. Patient has previously been evaluated by [facility] neurology for his stroke occurring this past May. He may continue to follow with [facility] neurology as an outpatient if he is still an active patient or if he chooses. History of Present Illness Reason for Consultation: Strokelike symptoms Requesting Physician: Benjamin Dong MD Attending Physician: Ag Bertrand MD History of Present Illness The patient is an 86-year-old male who presented to the emergency department yesterday for further assessment of nausea, vomiting, with associated numbness and tingling of the left hand which persisted for about 30 minutes and resolved. He denied experiencing any associated numbness of the face arm or leg. No associated weakness or change in speech. He may have had a headache in the context of nausea and vomiting although denies the symptoms currently. He denied experiencing any associated vision disturbance. He does endorse a history of stroke which occurred in May 2021 with similar sensory symptoms. He was seen by the [facility] neurology service at that time. A brain MRI completed as an outpatient prior to that particular admission had revealed a small acute to subacute lacunar infarct in the left thalamus, no evidence of bleeding. There was also evidence of an old lacunar infarct within the posterior right cerebellar hemisphere. He has been taking daily low-dose aspirin and atorvastatin as an outpatient. Past medical history notable for hyperlipidemia. He is a non-smoker. He has been admitted to the [facility] with a diagnosis of small bowel obstruction as identified on CT of the abdomen and pelvis. He is currently n.p.o., surgical consultation pending. This morning, he denies any recurrence of yesterday's neurological symptoms. A brain MRI completed yesterday was negative for acute or subacute infarct. CT angiography of the head and neck obtained at the time of presentation was negative for significant vascular lesion. Allergies Allergy/AdvReac Type Severity Reaction Status Date / Time thiamine (vitamin B1) Allergy Mild RASH Verified 02/20/22 23:27 Penicillins Allergy Unknown RASH Verified 02/20/22 23:27 soy Allergy Unknown SHAKY, Verified 02/20/22 23:27 CHILLS, BM Home Medications Medication Instructions Recorded Confirmed Type doxazosin 4 mg tablet (Cardura) 8 mg PO HS 05/25/21 03/09/22 History finasteride 5 mg tablet (Proscar) 5 mg PO DAILY 05/25/21 03/09/22 History atorvastatin 40 mg tablet 40 mg PO QAM #30 tabs 05/26/21 03/09/22 Rx fluticasone propionate 50 2 spray intranasal DAILY 02/20/22 03/09/22 History mcg/actuation nasal spray,suspension vit C 250 mg-vit E 90 mg-zinc 40 1 tab PO AMHS 02/20/22 03/09/22 History mg-copper 1 [id number] capsule (PreserVision AREDS-2) pantoprazole 40 mg tablet,delayed 40 mg PO DAILY #30 tabs 02/21/22 03/09/22 Rx release aspirin 81 mg tablet,delayed 81 mg PO HS 03/09/22 03/09/22 History release Patient History Medical History Anemia BPH (benign prostatic hyperplasia) CVA (cerebral vascular accident) History of supraventricular tachycardia HLD (hyperlipidemia) Schatzki's ring Small bowel obstruction Surgical History H/O abdominal surgery 2008; bowel adhesion. [place] [facility] [place] of appendectomy History of arthroscopy of right shoulder History of cholecystectomy History of colonoscopy History of esophagogastroduodenoscopy (EGD) History of laparotomy 2006-exploratory laparotomy/lysis of adhesions at [facility] History of resection of small bowel 2008. Dr. 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 Beliefs That Will Affect Care: None marital status: Current Living Situation: Spouse How many Children do You have: 3 Other Information That Helps Us Care for You: No Feels Safe at Home: Yes Safety Concerns: Feels Safe At This Time Assistive Devices: None Review of Systems Constitutional: no fever and no chills Eyes: no blind spots and no diplopia Ear, Nose, Mouth, Throat: no hearing loss Respiratory: no dyspnea Cardiovascular: no chest pain Gastrointestinal: as per Subjective / HPI, + nausea and + vomiting Genitourinary: no dysuria Musculoskeletal: no neck pain and no myalgia Integumentary: no rash Neurologic: as per Subjective / HPI Psychiatric: no depression and no anxiety Hematologic / Lymphatic: no easy bleeding Exam (Neuro) Constitutional: well developed and well nourished; no acute distress Eyes: normal visual mnceill by confrontation, PERRL, normal accommodation and EOM intact bilaterally; no fundoscopic abnormality, no nystagmus and no papilledema Cardiovascular: Vessels: normal carotid upstroke; no carotid bruit Neurologic: Oriented to:: Person, Place and Time Memory: Short Term Intact and Remote Intact Attention: Span Intact and Concentration Intact Language: Naming Objects and Repeating Phrases Speech Fluency: negative Dysarthria Speech Aphasia: negative Aphasia Fund of Knowledge: Current Events, Past History and Vocabulary Cranial Nerves: Normal II (Visual mcneill full to confrontation, visual acuity normal), III, IV, (Pupils equal round reactive to light and accommodation, eye movements normal), V (Facial sensation intact), VII (There is no facial droop or weakness), VIII (Hearing intact), IX, X (Palate elevates to midline), XI (Shoulder shrug intact) and XII (Tongue protrudes to midline) Motor Strength: Normal Lower Extremities and Normal Upper Extremities; negative Pronator Drift Motor Tone: Normal Lower Extremities and Normal Upper Extremities Muscle Bulk/Involuntary Movements: No Involuntary Movements; negative Muscle Atrophy Sensation: Light Touch Intact, Pain/Temperature Intact, Vibration Intact and Proprioception Intact Coordination: Normal; negative Limited Balance, Dysdiadochokinesia, Finger-Nose Abnormal or Heel-Romo Abnormal Deep Tendon Reflexes: Rt Triceps: 2+, Lt Triceps: 2+, Rt Biceps: 2+, Lt Biceps: 2+, Rt Brachioradialis: 2+, Lt Brachioradialis: 2+, Rt Patellar: 2+, Lt Patellar: 2+, Rt Ankle: 2+ and Lt Ankle: 2+ Special Tests: negative Babinski Present Gait: Normal Station and Gait Results & Data ([facility]) Vital Signs (Past 12 Hours) Vital Signs Temp Pulse Pulse Resp BP Pulse Ox O2 Del Method 03/10/22 07:32 74 03/10/22 06:39 36.8 C 76 20 126/62 97 Room Air 03/10/22 03:59 36.8 C 72 20 117/52 L 96 Room Air 03/10/22 00:37 81 03/10/22 00:06 36.9 C 83 20 112/44 L 97 Room Air 03/09/22 20:04 37.3 C 92 H 20 113/54 L 97 Room Air Laboratory Results WBC 8.43, hemoglobin 11.1, hematocrit 34.0, MCV 89.7, platelet count 208, sodium 140, potassium 3.8, BUN 20, creatinine 1.04, glucose 83, calcium 7.3, magnesium 2.3, triglycerides 74, cholesterol 74, LDL 32, VLDL 15, HDL [address] angiography of the head and neck unremarkable. CT of the head negative for hemorrhage or acute process, there is atrophy and chronic microvascular ischemic disease. MRI of the brain negative for acute or subacute infarct, again noted atrophy and chronic microvascular disease. The study is motion degraded. I independently reviewed the images and agree with the radiologist's interpretation of these tests. Electrocardiogram completed yesterday revealed a normal sinus rhythm, right bundle branch block, left anterior fascicular block. An echocardiogram completed May 26, 2021 in the context of his previous lacunar infarct revealed normal left ventricular chamber size, wall thickness, systolic function, EF 60 to 65%, no segmental left ventricular wall motion abnormalities, grade 1 diastolic dysfunction. There is a patent rodriguez ovale. There is mild aortic valve sclerosis without significant valvular stenosis. Left atrial size normal. Coding Level of Care Code 78777 Initial Inpt Care Lvl 3 Diagnoses Stroke-like symptoms R29.90 History of CVA (cerebrovascular accident) Z86.73
[2022-03-10 09:03] LABS: Estimated Average Glucose 123 mg/dl; Hemoglobin A1C 5.9 % (4.5-5.6)
--- NOTE | 2022-03-10 10:18 | Surgery Consultation ---
Date of Consultation March 10, 2022 Assessment & Plan (1) Small bowel obstruction: IVF NGT ambulate abdomen soft and passing flatus would leave NGT in till tomorrow, if bowel functions continues will likely be able to rmove in AM Present on Admission?: Yes History of Present Illness Attending Physician: Ag Bertrand MD History of Present Illness The patient is an 86 year old man with history of recurrent SBO with explorations and multiple bowel resections. He presented with vomiting He had food bolus 02/21/2022 and had EGD with removal of food bolus and had two bleeding deep esophageal ulcers/rents that were clipped, also noted moderate Schatzki ring. He has been on liquid diet since procedure. NGT placed in ED with CT scan showing possible SBO. He is passing a little flatus, some bilious drainage from ngt. Allergies Allergy/AdvReac Type Severity Reaction Status Date / Time thiamine (vitamin B1) Allergy Mild RASH Verified 02/20/22 23:27 Penicillins Allergy Unknown RASH Verified 02/20/22 23:27 soy Allergy Unknown SHAKY, Verified 02/20/22 23:27 CHILLS, BM Home Medications Medication Instructions Recorded Confirmed Type doxazosin 4 mg tablet (Cardura) 8 mg PO HS 05/25/21 03/09/22 History finasteride 5 mg tablet (Proscar) 5 mg PO DAILY 05/25/21 03/09/22 History atorvastatin 40 mg tablet 40 mg PO QAM #30 tabs 05/26/21 03/09/22 Rx fluticasone propionate 50 2 spray intranasal DAILY 02/20/22 03/09/22 History mcg/actuation nasal spray,suspension vit C 250 mg-vit E 90 mg-zinc 40 1 tab PO AMHS 02/20/22 03/09/22 History mg-copper 1 [id number] capsule (PreserVision AREDS-2) pantoprazole 40 mg tablet,delayed 40 mg PO DAILY #30 tabs 02/21/22 03/09/22 Rx release aspirin 81 mg tablet,delayed 81 mg PO HS 03/09/22 03/09/22 History release Patient History Medical History Anemia BPH (benign prostatic hyperplasia) CVA (cerebral vascular accident) History of supraventricular tachycardia HLD (hyperlipidemia) Schatzki's ring Small bowel obstruction Surgical History H/O abdominal surgery 2008; bowel adhesion. Dr Carlson at [facility] History of appendectomy History of arthroscopy of right shoulder History of cholecystectomy History of colonoscopy History of esophagogastroduodenoscopy (EGD) History of laparotomy 2006-exploratory laparotomy/lysis of adhesions at [facility] History of resection of small bowel 2008. Dr. 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 Required: No Beliefs That Will Affect Care: None marital status: Current Living Situation: Spouse How many Children do You have: 3 Other Information That Helps Us Care for You: No Feels Safe at Home: Yes Safety Concerns: Feels Safe At This Time Assistive Devices: None Review of Systems Constitutional: no fever, no chills, no sweats and no anorexia Eyes: no problem reported Ear, Nose, Mouth, Throat: no problem reported Respiratory: no cough and no dyspnea Cardiovascular: no chest pain and no chest pain with activity Genitourinary: no dysuria Musculoskeletal: no back pain Integumentary: no rash and no lesions Neurologic: no generalized weakness Psychiatric: no behavioral changes Physical Exam Constitutional: WD/WN, vitals as above Eyes: PERRL, conjunctivae normal, anicteric sclerae ENMT: external ear and nose normal, oropharynx normal Neck: trachea midline Respiratory: normal respiratory effort, lungs clear to auscultation Cardiovascular: RRR, no murmur, no edema Gastrointestinal (Abdomen): Inspection/Auscultation: abdomen normal to inspection, normal bowel sounds and + abdominal surgical scar; abdomen not distended Percussion/Palpation: abdomen soft; abdomen nontender, no guarding and abdomen not rigid Musculoskeletal: Head/Neck/Chest: normocephalic and head atraumatic Skin: no rashes, warm and dry Psychiatric: Orientation: alert and oriented x 3 Results & Data ([facility]) Vital Signs (Past 12 Hours) Vital Signs Temp Pulse Pulse Resp BP Pulse Ox O2 Del Method 03/10/22 08:00 Room Air 03/10/22 07:32 74 03/10/22 06:39 36.8 C 76 20 126/62 97 Room Air 03/10/22 03:59 36.8 C 72 20 117/52 L 96 Room Air 03/10/22 00:37 81 03/10/22 00:06 36.9 C 83 20 112/44 L 97 Room Air Diagnostic Findings CT SCAN OF THE ABDOMEN WITHOUT IV CONTRAST CLINICAL HISTORY: Upper abdominal pain. Nausea and vomiting. COMPARISON STUDY: Abdominal CT dated 01/26/2009. TECHNIQUE: CT scan of the abdomen is performed from the lung bases to the pelvic inlet Images are reviewed in the axial, sagittal, and coronal planes. IV contrast was not administered for this examination. Note that the examination is significantly suboptimal without oral and IV contrast. A dose lowering technique was utilized adhering to the principles of ALARA. CT DOSE: 636.23 mGycm FINDINGS: Lung bases: The heart is top normal in size and without pericardial effusion. The lung bases are clear. There is a small hiatal hernia. Postoperative change is noted at the gastroesophageal junction. Liver: The unenhanced liver is normal in size, contour, and attenuation. There is no intrahepatic biliary ductal dilatation. Gallbladder: Surgically absent noting clips in the gallbladder fossa. Spleen: Normal in size and attenuation. Pancreas: Moderately atrophic and grossly unremarkable. Adrenal glands: Unremarkable. Kidneys: The unenhanced kidneys demonstrate mild cortical atrophy and are without hydronephrosis. The presence renal calculi cannot be assessed due to excreted IV contrast within the renal collecting system and partially visualized bladder. There is no evidence of contour deforming renal mass lesion. Renal sinus cysts are seen bilaterally. Abdominal vasculature: The abdominal aorta is normal in course and caliber noting moderate atherosclerotic calcification. Bowel: There is evidence of multiple bowel resections. There are distended and fluid-filled loops of small bowel in the left upper quadrant which measure up to 4.2 cm in diameter. Loops of small bowel in the right lower quadrant are decompressed, and a transition point is suggested at an anastomotic site in the central lower abdomen on image #222. Appearance is typical for small bowel obstruction. There is no pneumatosis intestinalis or portal venous gas. There are also decompressed segments of the left colon. Liquid stool is noted in the right colon. The appendix is not identified and reported surgically absent Peritoneum: There is no intraperitoneal free air or abdominal ascites. A midline surgical scar is noted. Lymphadenopathy: None. Skeletal structures: The skeletal structures are osteopenic. Mild to moderate lumbosacral spondylosis is observed. No lytic or blastic lesions are seen. IMPRESSION: 1. Significantly suboptimal examination without oral and IV contrast. The pelvis was not imaged. 2. There is evidence of several previous bowel resections. 3. There are distended and fluid-filled loops of proximal small bowel in left upper quadrant, as well as decompressed loops of distal small bowel. A transition point is identified at an anastomosis in the central lower pelvis, and the appearance is typical for bowel obstruction. Clinical correlation will be required. 4. Liquid stool is noted in the right colon. 5. Additional findings as above.
[2022-03-10] MEDS ORDERED: COUGH DROP (SUGAR FREE) LOZ 24 LOZ/1 BOX BUCCAL PRN (15:41)
[2022-03-10] MEDS ORDERED: LACTATED RINGER'S 1,000 ML IV SCH (19:00)
[2022-03-10] MEDS: ASPIRIN 300 MG SUPP PR SCH (20:58)
[2022-03-11] MEDS: PANTOprazole 40 MG in SYRINGE 0 ML IV SCH (07:57)
[2022-03-11 08:04] LABS: Eosinophils # (auto) 0.12 K/uL (0-0.50); Eosinophils % (auto) 1.6 %; Hematocrit (blood only) 34.9 % (40.1-51.0); Hemoglobin 11.2 g/dl (14.0-18.0); Immature Granulocytes # (auto) 0.03 K/uL (0.00-0.02); Immature Granulocytes % (auto) 0.4 %; Lymphocytes # (auto) 1.22 K/uL (1.2-3.4); Lymphocytes % (auto) 16.1 %; Mean Corpuscular Hemoglobin 29.2 pg (25.0-34.0); Mean Corpuscular Hgb Conc 32.1 g/dL (32.0-36.0); Mean Corpuscular Volume 91.1 fL (80.0-100.0); Mean Platelet Volume 11.8 fL (9.4-12.4); Monocytes # (auto) 0.55 K/uL (0.24-0.82); Monocytes % (auto) 7.3 %; Neutrophils # (auto) 5.64 K/uL (1.4-6.5); Neutrophils % (auto) 74.6 %; Platelet Count 188 K/uL (130-400); RDW Coefficient of Variation 13.1 % (11.5-14.5); RDW Standard Deviation 43.4 fL (36.4-46.3); Red Blood Count 3.83 M/uL (4.63-6.08); White Blood Count 7.56 K/ul (4.8-10.8)
[2022-03-11 08:22] LABS: BUN Creatinine Ratio 20.5 (10-20); Calcium 7.5 mg/dl (8.5-10.1); Creatinine Clr Calc Pharmacy 60.5 ml/min; Est GFR (African American) 91.4 ml/min; Est GFR (Non-African American) 78.9 ml/min; Potassium 3.8 mmol/L (3.5-5.1)
[2022-03-11] MEDS ORDERED: SODIUM PHOSPHATE 3 MMOL/1 ML 5 ML VIAL IV STA (10:40)
[2022-03-11] MEDS ORDERED: SODIUM PHOSPHATE 30 MMOL in SODIUM CHLORIDE 0.9% 500 ML IV ONE (10:45)
--- NOTE | 2022-03-11 10:45 | Hospitalist Progress Note ---
Date of Service March 11, 2022 Assessment & Plan (1) Small bowel obstruction: Plan: - presented with vomiting x1 - CT-AP with evidence of SBO - NGT placed in ED - continue for now - NPO - General surgery consult - monitor for flatus, BMs - have flatus - will consider pulling NGT pending surgical follow up (2) Stroke-like symptoms: Plan: - left arm tingling without weakness - h/o CVA 05/2021 - CTA head and neck negative - MRI brain negative for acute stroke - tele monitoring - TTE ordered - unchanged from prior 05/2021 - continue ASA suppository while NPO - ASA, plavix for 21 days when tolerating po - then continue plavix indefinitely - follow up neuro recs (3) History of CVA (cerebrovascular accident): Plan: - h/o CVA 05/2021 - on Aspirin and statin - holding statin while NPO with SBO - Aspirin suppository in ED - continue ASA SD for now - DAPT as above (4) Hypomagnesemia: Plan: - replete prn - Monitor (5) History of supraventricular tachycardia: Plan: - History sinus node dysfunction - Monitor on telemetry (6) Anemia: Plan: - hgb stable - Monitor (7) Schatzki's ring: Plan: - Recent food bolus 02/21/22 had EGD with removal food bolus and two bleeding deep esophageal ulcers/rents that were clipped - On oral PPI at home that will change to IV while NPO - outpatient GI follow up (8) BPH (benign prostatic hyperplasia): Plan: - Plan to resume home finasteride, doxazosin when able (9) HLD (hyperlipidemia): Plan: - Resume atorvastatin when able Plan DVT Ppx: SCDs pending Surgery evaluation Full Code PCP: Follows with Dr Grant Gold for routine care Ag Bertrand MD Hospital Medicine Admission and Anticipated Discharge Date Admission Date: March 09, 2022 Subjective The patient is an 86 year old man with pmh CVA 05/2021, HLD, 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 Of note, discharge report from 02/21/2022 reviewed and patient was to be on liquid diet for 3 days following EGD but continued until this presentation - last admission Patient had food bolus 02/21/2022 and had EGD with removal of food bolus and had two bleeding deep esophageal ulcers/rents that were clipped, also noted moderate Schatzki ring. Stroke work up in the ED was negative including MRI. CT-AP found to have SBO, NGT placed in ED. General surgery consulted. The patient feels well. Denies n/v, cough, chest pain, shortness of breath, dysuria, abdominal pain. Reports passing flatus but no BM today. Review of Systems Review of Systems: All systems reviewed & are unremarkable except as noted in Subjective Physical Exam Physical Exam: General: no distress, WDWN Head: normocephalic, atraumatic Eyes: PERRL, EOM's intact, conjunctiva non-injected, anicteric ENT: normal inspection external ears, nose, mucous membranes dry Neck: supple, trachea midline, non-tender Lungs: clear, no respiratory distress, no wheezing/rhonchi/rales CV: RRR, no murmur, no pretibial edema Abd: +healed surgical scar, hypoactive BS, soft, +slight tenderness to palpation across lower abdomen Ext: no cyanosis, no calf tenderness Neuro: A&O x 3, normal affect, No nystagmus. facial sensation is intact and symmetric, face is strong and symmetric, hearing grossly intact, soft palate elevates symmetrically, no dysarthria, shoulder shrug intact, tongue is midline, normal movement, no fasciculations. Strength 5/5 bilateral upper and lower extremities Skin: warm, dry Results & Data Results & Data ([facility]) Vital Signs (Past 12 Hours) Vital Signs Temp Pulse Pulse Resp BP Pulse Ox O2 Del Method 03/11/22 08:10 36.8 C 74 16 134/60 97 Room Air 03/11/22 07:37 69 03/11/22 04:00 36.6 C 70 20 125/52 L 97 Room Air 03/10/22 23:53 36.4 C L 70 20 126/61 96 Room Air 03/10/22 23:29 69 Laboratory Results Short CBC 03/11/22 Range/Units 07:56 WBC 7.56 (4.8-10.8) K/ul Hgb 11.2 L (14.0-18.0) g/dl Hct 34.9 L (40.1-51.0) % Plt Count 188 (130-400) K/uL BMP 03/11/22 07:56 Sodium 140 Potassium 3.8 Chloride 109 H Carbon Dioxide 23 BUN 18 Creatinine 0.88 Glucose 68 L Calcium 7.5 L Medications Administered Current Inpatient Medications Aspirin (Aspirin 300 Mg Supp) 150 mg SD HS RAHUL Stop: 04/08/22 20:59 Last Admin: 03/10/22 20:58 Dose: 150 mg Pantoprazole Sodium 40 mg/ (Syringe) 10 mls @ 5 mls/min IV BID RAHUL Stop: 04/08/22 20:59 Last Admin: 03/11/22 07:57 Dose: 5 mls/min Acetaminophen (Ofirmev) 1,000 mg in 100 mls @ 400 mls/hr IV Q8H PRN PRN Reason: Pain or Fever Stop: 03/12/22 15:58 Menthol (Cough Drop (Sugar Free) Johnna 24 Johnna/1 Box) 1 johnna BUCCAL Q6H PRN PRN Reason: Sore Throat Stop: 04/09/22 15:40 Last Admin: 03/10/22 15:49 Dose: 1 johnna Miscellaneous Information (Pharmacist Discharge Med Rec Consult) 1 each N/A UD PRN PRN Reason: Consult Stop: 04/08/22 14:19 Ondansetron HCl (Ondansetron Inj 2 Mg/Ml 2 Ml Vial) 4 mg IV Q6H PRN PRN Reason: Nausea Stop: 04/08/22 15:58 Sodium Phosphate (Sodium Phosphate 3 Mmol/1 Ml 5 Ml Vial) 30 mmol IV NOW STA Stop: 03/11/22 10:41
--- NOTE | 2022-03-11 10:50 | Surgery Progress Note ---
Date of Service March 11, 2022 Assessment & Plan (1) Small bowel obstruction: Plan: passing flatus remove ngt sips of clears only ambulate Admission and Anticipated Discharge Date Admission Date: March 09, 2022 Subjective passing flatus no nausea no pain Review of Systems Constitutional: no fever, no chills and no anorexia Respiratory: no cough and no dyspnea Cardiovascular: no chest pain Gastrointestinal: no abdominal pain, no nausea, no vomiting and no diarrhea/loose stools Genitourinary: no dysuria Musculoskeletal: no back pain Integumentary: no rash and no lesions Neurologic: no localized weakness and no generalized weakness Physical Exam Constitutional: WD/WN, vitals as above Eyes: PERRL, conjunctivae normal, anicteric sclerae Neck: trachea midline Respiratory: normal respiratory effort, lungs clear to auscultation Cardiovascular: RRR, no murmur, no edema Gastrointestinal (Abdomen): Inspection/Auscultation: abdomen normal to inspection and normal bowel sounds; abdomen not distended Percussion/Palpation: abdomen soft; abdomen nontender, no guarding and abdomen not rigid Musculoskeletal: Head/Neck/Chest: normocephalic and head atraumatic Results & Data ([facility]) Vital Signs (Past 12 Hours) Vital Signs Temp Pulse Pulse Resp BP Pulse Ox O2 Del Method 03/11/22 08:10 36.8 C 74 16 134/60 97 Room Air 03/11/22 07:37 69 03/11/22 04:00 36.6 C 70 20 125/52 L 97 Room Air 03/10/22 23:53 36.4 C L 70 20 126/61 96 Room Air 03/10/22 23:29 69
[2022-03-11] MEDS ORDERED: ATORVASTATIN 40 MG TAB PO SCH (15:45)
[2022-03-11] MEDS ORDERED: CLOPIDOGREL BISULFATE 75 MG TAB PO SCH (15:45)
[2022-03-11] MEDS ORDERED: STROKE PATIENT DISCHARGE STA (16:00)
--- NOTE | 2022-03-11 17:46 | Pharmacy Report ---
Pharmacist Stroke Counseling - Date of Service March 11, 2022 - Scope: Pharmacy has been consulted to provide medication discharge counseling for this patient admitted with [ischemic stroke] [hemorrhagic stroke] [transient ischemic attack] as per the Pharmacist Discharge Counseling for Stroke Patients Protoc . - Medications on Discharge: Home Medications Medication Instructions Recorded Confirmed doxazosin 4 mg tablet (Cardura) 8 mg PO HS 05/25/21 03/09/22 finasteride 5 mg tablet (Proscar) 5 mg PO DAILY 05/25/21 03/09/22 fluticasone propionate 50 2 spray intranasal DAILY 02/20/22 03/09/22 mcg/actuation nasal spray,suspension vit C 250 mg-vit E 90 mg-zinc 40 1 tab PO AMHS 02/20/22 03/09/22 mg-copper 1 [id number] capsule (PreserVision AREDS-2) aspirin 81 mg tablet,delayed 81 mg PO HS 03/09/22 03/09/22 release New Rx's Medication Instructions Recorded atorvastatin 40 mg tablet 40 mg PO QAM #30 tabs 05/26/21 pantoprazole 40 mg tablet,delayed 40 mg PO DAILY #30 tabs 02/21/22 release clopidogrel 75 mg tablet 75 mg PO QAM #30 tabs 03/11/22 - Action: The above medications, specifically ones for stroke treatment/prophylaxis, have been reviewed in detail with the patient and/or patient entry level marketing representative(s) prior to discharge. This includes indication, common adverse reactions, drug interactions, and medication administration. Medication counseling has been employed using the teach-back method to ensure understanding. - Outcome: The patient and/or patient entry level marketing representative(s) have demonstrated understanding of the medications. * I spoke with the patient's on the phone per his request. * He will continue both his home ASA 81mg + clopidogrel 75mg daily x 21 days, then transition to clopidogrel 75mg daily. His ASA has caused bruising in the past. I asked that they reach out to the provider if they are concerned now that he will be on 2 antiplatelet treatments. I discussed that the dual treatment for the short-term may be beneficial with the recent TIA. * He will continue his home atorvastatin 40mg daily. He has tolerated this well thus far. Thank you for allowing pharmacy to be involved in the care of this patient. Please call [phone] with any additional questions
--- NOTE | 2022-03-11 18:04 | Discharge Summary ---
Date of Service March 11, 2022 Admission HPI Per Admitting Provider Patient is 86 y/o M with PMH CVA, HLD, recurrent SBO, s/p bowel resection, BPH, history SVT, RBBB presented to ER with c/o vomiting this am and left hand tingling. Patient states this morning he took his Protonix and shortly after he vomited once. Denies abdominal pain, hematemesis. States that he started with tingling to his left hand. He did not notice any left hand or upper extremity weakness. Patient denies headache but states "my head feels funny". Patient states last BM 2 days ago and was hard small stool. He reports he has been having liquid diet since his EGD 02/21/2022. He feels has been having generalized weakness while on liquid diet as he thought he had to continue on this. (Discharge report reviewed and patient was to be on liquid diet for 3 days following EGD). Patient had food bolus 02/21/2022 and had EGD with removal of food bolus and had two bleeding deep esophageal ulcers/rents that were clipped, also noted moderate Schatzki ring. He reports for over 10 months has been having dizziness with sitting and standing. Reports has been having "shadows in his vision" after prolonged walking that has been ongoing for 10 months as well. 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 History CVA in 05/2021. Denies fever/chills, diaphoresis, melena, hematochezia, syncope, loss of vision, neck pain, CP, SOB, orthopnea, palpitations, cough, sore throat, choking, otalgia, rhinorrhea, extremity edema, rashes, urinary symptoms. In ER patient found to have SBO. NG tube placed. No vomiting while in ER. Initial CT head no acute findings. Had telestroke consultation with differential diagnosis metabolic encephalopathy versus posterior circulation stroke. Patient was out of the 4 and half hour window for IV thrombolytics. Admission Exam Per Admitting Provider General: no distress, WDWN Head: normocephalic, atraumatic Eyes: PERRL, EOM's intact, conjunctiva non-injected, anicteric ENT: normal inspection external ears, nose, mucous membranes dry Neck: supple, trachea midline, non-tender Lungs: clear, no respiratory distress, no wheezing/rhonchi/rales CV: RRR, no murmur, no pretibial edema Abd: +healed surgical scar, hypoactive BS, soft, +slight tenderness to palpation across lower abdomen Ext: no cyanosis, no calf tenderness Neuro: A&O x 3, normal affect, No nystagmus. facial sensation is intact and symmetric, face is strong and symmetric, hearing grossly intact, soft palate elevates symmetrically, no dysarthria, shoulder shrug intact, tongue is midline, normal movement, no fasciculations. Strength 5/5 bilateral upper and lower extremities Skin: warm, dr Principal Diagnosis small bowel obstruction, TIA Discharge Exam General: no distress, WDWN Head: normocephalic, atraumatic Eyes: PERRL, EOM's intact, conjunctiva non-injected, anicteric ENT: normal inspection external ears, nose, mucous membranes dry Neck: supple, trachea midline, non-tender Lungs: clear, no respiratory distress, no wheezing/rhonchi/rales CV: RRR, no murmur, no pretibial edema Abd: +healed surgical scar, hypoactive BS, soft, +slight tenderness to palpation across lower abdomen Ext: no cyanosis, no calf tenderness Neuro: A&O x 3, normal affect, No nystagmus. facial sensation is intact and symmetric, face is strong and symmetric, hearing grossly intact, soft palate elevates symmetrically, no dysarthria, shoulder shrug intact, tongue is midline, normal movement, no fasciculations. Strength 5/5 bilateral upper and lower extremities Skin: warm, dry Discharge Data Allergies Allergy/AdvReac Type Severity Reaction Status Date / Time thiamine (vitamin B1) Allergy Mild RASH Verified 02/20/22 23:27 Penicillins Allergy Unknown RASH Verified 02/20/22 23:27 soy Allergy Unknown SHAKY, Verified 02/20/22 23:27 CHILLS, BM Consultations 03/09/22 13:17 ED Decision to Admit Stat 03/09/22 14:20 Consult Neurology Routine 03/09/22 14:27 Consult General Surgery Routine Ordered Studies 03/09/22 10:20 CT angio head w con Stat CT angio neck with con Stat CT head/brain wo con Stat 03/09/22 11:13 CT abd pelvis wo con Stat 03/09/22 12:55 MR brain wo con Stat Hospital Course (1) Small bowel obstruction: The patient is an 86 year old man with pmh CVA 05/2021, HLD, 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 Of note, discharge report from 02/21/2022 reviewed and patient was to be on liquid diet for 3 days following EGD but continued until this presentation - last admission Patient had food bolus 02/21/2022 and had EGD with removal of food bolus and had two bleeding deep esophageal ulcers/rents that were clipped, also noted moderate Schatzki ring. Stroke work up in the ED was negative including MRI. CT-AP found to have SBO, NGT placed in ED. General surgery consulted. Patient had minimal output and return of bowel function was achieved. He was ready for discharge with 21 days of DAPT to stop aspirin after 21 days and continue plavix. Follow up with neurology was advised. - presented with vomiting x1 - CT-AP with evidence of SBO - NGT placed in ED - continue for now - NPO - General surgery consult - monitor for flatus, BMs - have flatus and had a BM - ok to discharge home (2) Stroke-like symptoms: - left arm tingling without weakness - h/o CVA 05/2021 - CTA head and neck negative - MRI brain negative for acute stroke - tele monitoring - TTE ordered - unchanged from prior 05/2021 - continue ASA suppository while NPO - ASA, plavix for 21 days when tolerating po - then continue plavix indefinitely - follow up neuro recs (3) History of CVA (cerebrovascular accident): - h/o CVA 05/2021 - on Aspirin and statin - holding statin while NPO with SBO - Aspirin suppository in ED - continue ASA [place] for now - DAPT as above (4) Hypomagnesemia: - replete prn - Monitor (5) History of supraventricular tachycardia: - History sinus node dysfunction - Monitor on telemetry (6) Anemia: - hgb stable - Monitor (7) Schatzki's ring: - Recent food bolus 02/21/22 had EGD with removal food bolus and two bleeding deep esophageal ulcers/rents that were clipped - On oral PPI at home that will change to IV while NPO - outpatient GI follow up (8) BPH (benign prostatic hyperplasia): - Plan to resume home finasteride, doxazosin when able (9) HLD (hyperlipidemia): - Resume atorvastatin when able Plan DVT Ppx: SCDs pending Surgery evaluation Full Code PCP: Follows with Dr Grant Gold for routine care Ag Bertrand MD [facility] Medicine Total Time Total Time Spent Total Time Spent (In Minutes): 21 Total Time Includes: Examination of the Patient, Discharge Planning, Medication Reconciliation and Communication With Other Providers Discharge Plan Discharge Items Patient Disposition: Home - Self-Care Reason For Visit: SBO PARESTHESIS Discharge Diagnosis: small bowel obstruction, TIA Activity: Resume your previous activity Non-emergency contact: Primary Care Provider and Neurologist Call non-emergency contact if: you have any medication questions, your symptoms worsen and your pain is worsening Follow-up/Referrals: Aaron Carmichael MD [Physician] - Grant Gold, [Primary Care Provider] - Diet: Heart Healthy Addtl Attending Provider Instructions: You were admitted for a small bowel obstruction and stroke symptoms. Your stroke symptoms resolved, called TIA, and should continue with Aspirin 81mg and plavix 75mg daily as well as Atorvastatin 40mg for 21 days. After 21 days, stop aspirin and continue plavix 75mg and atorvastatin 40mg and follow up with neurologist. You had small bowel obstruction that required an NGT decompression. Your symptoms improved and the NGT was removed. You should follow up with your primary care doctor and the neurologist after discharge. Pending Studies at Discharge: No Stand-Alone Forms: Medications to Prevent Stroke, [facility], Smoking Cessation Medications and DC Order Prescriptions: New clopidogrel 75 mg Tablet 75 mg PO QAM Qty: 30 1RF Continued aspirin 81 mg tablet,delayed release (DR/EC) 81 mg PO HS doxazosin [Cardura] 4 mg tablet 8 mg PO HS finasteride [Proscar] 5 mg tablet 5 mg PO DAILY atorvastatin 40 mg Tablet 40 mg PO QAM Qty: 30 0RF fluticasone propionate 50 mcg/actuation [place],Suspension 2 spray INTRANASAL DAILY Rx Instructions: administer into each nostril PreserVision AREDS-2 250-90-40-1 mg Capsule 1 tab PO AMHS pantoprazole 40 mg tablet,delayed release (DR/EC) 40 mg PO DAILY Qty: 30 0RF Discharge Orders: Discharge Order (Routine); Ordered 03/11/22 Ordered By: Ag Bertrand Admission Data Admit Date/Time: 03/09/22 13:50 Attending Provider: Ag Bertrand Admit Provider: Iker Alexander Primary Care Provider: Grant Gold Other Providers: Iker Alexander ; Aaron Carmichael ; Manuel Christiansen
[2022-03-12] MEDS ORDERED: ASPIRIN 81 MG ECTAB PO SCH (09:00)
== END 2022-03-11 17:30 | disposition home or self-care (01) | DRG 389 ==
LOC: ED 10:17 → 2N 13:50 → SUATTDRO 13:50 → 2N 15:04
DX: Z88.0 Allergy status to penicillin; K22.2 Esophageal obstruction; Q21.1 Atrial septal defect; Z91.018 Allergy to other foods; Z86.73 Personal history of transient ischemic attack (TIA), and cerebral infarction without residual deficits; E83.42 Hypomagnesemia; G45.9 Transient cerebral ischemic attack, unspecified; E83.51 Hypocalcemia; N40.0 Benign prostatic hyperplasia without lower urinary tract symptoms; Z88.8 Allergy status to other drugs, medicaments and biological substances; Z79.899 Other long term (current) drug therapy; K56.609 Unspecified intestinal obstruction, unspecified as to partial versus complete obstruction; D64.9 Anemia, unspecified; Z79.82 Long term (current) use of aspirin; R29.701 NIHSS score 1; E86.0 Dehydration; I47.1 Supraventricular tachycardia; E78.5 Hyperlipidemia, unspecified; Z79.51 Long term (current) use of inhaled steroids

== ENCOUNTER 2022-03-22 10:16 | Inpatient (IN) ==
[2022-03-22] MEDS ORDERED: SODIUM CHLORIDE 0.9% 500 ML IV STA (11:12)
[2022-03-22] MEDS ORDERED: ONDANSETRON INJ 2 MG/ML 2 ML VIAL IV STA (11:12)
[2022-03-22 11:26] LABS: Hematocrit (blood only) 40.4 % (40.1-51.0); Hemoglobin 13.4 g/dl (14.0-18.0); Mean Corpuscular Hemoglobin 29.3 pg (25.0-34.0); Mean Corpuscular Hgb Conc 33.2 g/dL (32.0-36.0); Mean Corpuscular Volume 88.2 fL (80.0-100.0); Mean Platelet Volume 12.6 fL (9.4-12.4); Platelet Count 213 K/uL (130-400); RDW Coefficient of Variation 13.7 % (11.5-14.5); RDW Standard Deviation 44.4 fL (36.4-46.3); Red Blood Count 4.58 M/uL (4.63-6.08); White Blood Count 8.39 K/ul (4.8-10.8)
--- NOTE | 2022-03-22 11:27 | Emergency Department Note ---
Impression & Plan Small bowel obstruction, Acute dehydration, Vomiting ED Provider Note NAME: ROBERTO TODD AGE: 86 SEX: M : 1935 ARRIVES VIA: Ambulance INFORMANT: Patient, the patient's family members ED PROVIDER(S): Kemal Solorio DO CHIEF COMPLAINT: Nausea HPI: The patient is an 86-year-old male who presented to the emergency departm ent with multiple complaints. The patient has a history of vertigo in the past but he also has a history of bowel obstruction. He states he was in our facility recently for bowel obstruction symptoms. He was able to go home at that time. He did have a follow-up appointment with his family doctor yesterday after being seen in the emergency department. He was feeling fine. He woke up this morning with a sensation of dizziness and felt as though he could not get out of bed because of the dizziness. He denies having any chest pain or difficulty breathing. He denies having any lower extremity swelling or weakness. He states his dizziness at this time is almost completely resolved but he still complains of nausea. He also complains of upper abdominal fullness. He did have a bowel movement recently but it was not his usual amount of stool that he would pass. He presented to the emergency department with family members who also provide part of the history. ROS: See above HPI for pertinent positives & negatives. A total of 10 systems reviewed and were otherwise negative. PAST MEDICAL HISTORY: See Below PAST SURGICAL HISTORY: See Below FAMILY HISTORY: See Below SOCIAL HISTORY: See Below HOME MEDICATIONS: See Below ALLERGIES: See Below VITALS: See Below PHYSICAL EXAMINATION: GENERAL: Patient is awake alert in no acute distress patient is resting c omfortably and showing no signs of anxiety EYES: The conjunctivae are clear. The pupils are round and reactive. EARS, NOSE, MOUTH AND THROAT: The nose is without any evidence of any deformity. NECK: The neck is nontender and supple. RESPIRATORY: Normal respiratory effort is noted there is no evidence of wheezing rhonchi or rales CARDIOVASCULAR: Regular rate and rhythm noted there no murmurs rubs or gallops normal S1 normal S2. GASTROINTESTINAL: The abdomen is soft and moderately distended. There is epigastric tenderness to palpation but no guarding or rigidity. MUSCULOSKELETAL/EXTREMITIES: There is no evidence of gross deformity full range of motion is noted in the hips and shoulders. SKIN: Skin is cool and dry. There is no significant pedal edema. NEUROLOGIC: Patient is awake alert and oriented x3. Strength is symmetric. MEDICAL DECISION MAKING: The patient is an 86-year-old male who presented to the emergency department for an evaluation of abdominal pain and nausea. The patient is also had some dizziness. He was seen in our facility previously for similar complaints. At that time he was found to have a partial small bowel obstruction. He also had a work-up for his dizziness which included an MRI of the brain. This did not reveal any central nervous system cause for his dizziness. The patient was treated with IV fluids in the emergency department. He was also treated with IV antiemetics. He was reevaluated multiple times. CT appears to be consistent with a partial small bowel obstruction again. I discussed the patient's condition with the on-call [facility] group. They have agreed to evaluate the patient in the emergency department for further management and disposition. Triage Nursing notes reviewed. Prior medical records reviewed Vital Signs: reviewed and remarkable for no significant abnormalities Differential diagnosis: Etiologies such as appendicitis, diverticulitis, obstruction, inflammatory bowel disease, renal colic, PUD, biliary pathology, pancreatitis, mesenteric ischemia, aortic pathology, infections, genitourinary, UTI, perforated viscus, as well as others were entertained. ER treatment provided: See below Diagnostics interpreted by me: ECG: EKG was obtained in the emergency department. My interpretation is sinus rhythm at 87 bpm. First-degree AV block was noted. Inferior Q waves and anterior Q waves were appreciated. This was compared to a tracing from March 09, 2022. No changes were noted. Cardiac Monitoring: An order was placed for continuous cardiac monitoring. The monitor shows a rate of 90 bpm with sinus rhythm. Laboratory studies: As stated above and show below. Imaging studies: See below Consultation(s): Discussed this case with Alix who is on for the [facility] group Past Med/Surg History Medical History Anemia Barretts esophagus BPH (benign prostatic hyperplasia) CVA (cerebral vascular accident) May 2021--unknown cause---currently on plavix--follows with Dr. Austin Hearing deficit History of anesthesia reaction difficulty waking History of supraventricular tachycardia follows with [facility] HLD (hyperlipidemia) On anticoagulant therapy plavix daily Schatzki's ring Small bowel obstruction Surgical History History of appendectomy History of arthroscopy of right shoulder History of bilateral cataract extraction History of cholecystectomy History of colonoscopy History of esophagogastroduodenoscopy (EGD) History of laparotomy 2006-exploratory laparotomy/lysis of adhesions at [facility] History of resection of small bowel 2008. Dr. 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 Beliefs That Will Affect Care: None marital status: Current Living Situation: Spouse How many Children do You have: 3 Feels Safe at Home: Yes Assistive Devices: Glasses and Hearing Aid - Bilateral Allergies Allergies Allergy/AdvReac Type Severity Reaction Status Date / Time Penicillins Allergy Mild RASH Verified 03/19/22 11:17 soy Allergy Mild SHAKY, Verified 03/19/22 11:17 CHILLS, BM thiamine (vitamin B1) Allergy Mild RASH Verified 03/19/22 11:17 Home Meds Home Medications Medication Instructions Recorded Confirmed doxazosin 4 mg tablet (Cardura) 8 mg PO HS 05/25/21 03/22/22 finasteride 5 mg tablet (Proscar) 5 mg PO QAM 05/25/21 03/22/22 fluticasone propionate 50 2 spray intranasal QAM 02/20/22 03/22/22 mcg/actuation nasal spray,suspension vit C 250 mg-vit E 90 mg-zinc 40 1 tab PO AMHS 02/20/22 03/22/22 mg-copper 1 [id number] capsule (PreserVision AREDS-2) aspirin 81 mg tablet,delayed 81 mg PO HS 03/09/22 03/22/22 release pantoprazole 40 mg tablet,delayed 40 mg PO QAM 03/19/22 03/22/22 release Previous Rx's Medication Instructions Recorded atorvastatin 40 mg tablet 40 mg PO QAM #30 tabs 05/26/21 clopidogrel 75 mg tablet 75 mg PO QAM #30 tabs 03/11/22 Results & Data (ED) Vital Signs Vital Signs - 24 hr 03/22/22 10:23 03/22/22 10:29 03/22/22 11:43 Temperature 37.0 C Temperature Source Oral Pulse Rate 91 H Pulse Rate [Right Finger] 89 Pulse Rate from SpO2 Sensor Pulse Rhythm Regular Pulse Rhythm [Right Finger] Regular Pulse Strength Normal Pulse Strength [Right Finger] Normal Respiratory Rate 25 H 17 Respiratory Effort / Characteristics Non-Labored Spontaneous Non-Labored Spontaneous Respiratory Depth Normal Normal Respiratory Pattern Regular Regular Blood Pressure 117/70 Blood Pressure [Right Arm] 116/69 Blood Pressure Mean 85 Blood Pressure Mean [Right Arm] 84 Blood Pressure Position Lying Blood Pressure Position [Right Arm] Lying Pulse Oximetry 99 100 98 Oxygen Delivery Method Room Air Room Air Room Air Sepsis Recent Fever Within 48 Hours No Sepsis New/Unexplained Change in Mental Status No Sepsis Action Taken by Nursing No Action Required 03/22/22 10:28 03/22/22 11:28 03/22/22 11:30 Temperature Temperature Source Pulse Rate 89 88 85 Pulse Rate [Right Finger] Pulse Rate from SpO2 Sensor 89 88 85 Pulse Rhythm Pulse Rhythm [Right Finger] Pulse Strength Pulse Strength [Right Finger] Respiratory Rate 20 29 H 21 Respiratory Effort / Characteristics Respiratory Depth Respiratory Pattern Blood Pressure 116/69 117/64 114/57 L Blood Pressure [Right Arm] Blood Pressure Mean 84 81 76 Blood Pressure Mean [Right Arm] Blood Pressure Position Blood Pressure Position [Right Arm] Pulse Oximetry 98 98 97 Oxygen Delivery Method Room Air Room Air Room Air Sepsis Recent Fever Within 48 Hours Sepsis New/Unexplained Change in Mental Status Sepsis Action Taken by Nursing 03/22/22 13:13 03/22/22 12:00 03/22/22 12:30 Temperature Temperature Source Pulse Rate 93 H 94 H Pulse Rate [Right Finger] 93 H Pulse Rate from SpO2 Sensor 91 H 94 H Pulse Rhythm Pulse Rhythm [Right Finger] Pulse Strength Pulse Strength [Right Finger] Respiratory Rate 20 23 24 Respiratory Effort / Characteristics Non-Labored Respiratory Depth Normal Respiratory Pattern Blood Pressure 103/57 L 114/59 L Blood Pressure [Right Arm] 107/61 Blood Pressure Mean 72 77 Blood Pressure Mean [Right Arm] 76 Blood Pressure Position Blood Pressure Position [Right Arm] Pulse Oximetry 97 96 97 Oxygen Delivery Method Room Air Room Air Room Air Sepsis Recent Fever Within 48 Hours Sepsis New/Unexplained Change in Mental Status Sepsis Action Taken by Nursing 03/22/22 13:16 Temperature Temperature Source Pulse Rate 90 Pulse Rate [Right Finger] Pulse Rate from SpO2 Sensor 88 Pulse Rhythm Pulse Rhythm [Right Finger] Pulse Strength Pulse Strength [Right Finger] Respiratory Rate 16 Respiratory Effort / Characteristics Respiratory Depth Respiratory Pattern Blood Pressure 107/61 Blood Pressure [Right Arm] Blood Pressure Mean 76 Blood Pressure Mean [Right Arm] Blood Pressure Position Blood Pressure Position [Right Arm] Pulse Oximetry 97 Oxygen Delivery Method Room Air Sepsis Recent Fever Within 48 Hours Sepsis New/Unexplained Change in Mental Status Sepsis Action Taken by Snf Medications Current Medication List: was personally reviewed by me Laboratory Data Attestation: I reviewed the patient's lab results. Result diagrams: 03/22/22 10:50 03/22/22 10:50 Lab Results 03/22/22 03/22/22 03/22/22 Range/Units 10:50 10:50 10:50 WBC 8.39 (4.8-10.8) K/ul RBC 4.58 L (4.63-6.08) M/uL Hgb 13.4 L (14.0-18.0) g/dl Hct 40.4 (40.1-51.0) % MCV 88.2 (80.0-100.0) fL MCH 29.3 (25.0-34.0) pg MCHC 33.2 (32.0-36.0) g/dL RDW Std Deviation 44.4 (36.4-46.3) fL RDW Coeff of Flori 13.7 (11.5-14.5) % Plt Count 213 (130-400) K/uL MPV 12.6 H (9.4-12.4) fL Immature Gran % (Auto) 0.4 % Neut % (Auto) 90.1 % Lymph % (Auto) 2.7 % Frio % (Auto) 6.6 % Eos % (Auto) 0.1 % Baso % (Auto) 0.1 % Neut # (Auto) 7.56 H (1.4-6.5) K/uL Lymph # (Auto) 0.23 L (1.2-3.4) K/uL Frio # (Auto) 0.55 (0.24-0.82) K/uL Eos # (Auto) 0.01 (0-0.50) K/uL Baso # (Auto) 0.01 (0-0.2) K/uL Immature Gran # (Auto) 0.03 H (0.00-0.02) K/uL PT 11.4 (9.0-12.0) Seconds INR 1.1 (0.9-1.1) APTT 23.1 (21.0-31.0) Seconds PTT Ratio 0.8 Sodium 139 (136-145) mmol/L Potassium 4.6 (3.5-5.1) mmol/L Chloride 106 (98-107) mmol/L Carbon Dioxide 22 (21-32) mmol/L Anion Gap 11 (3-11) BUN 24 H (6-23) mg/dl Creatinine 1.32 (0.6-1.4) mg/dl Est Cr Clr Drug Dosing 40.3 ml/min Est GFR ( Amer) 57.0 ml/min Est GFR (Non-Af Amer) 49.2 ml/min BUN/Creatinine Ratio 18.2 (10-20) Glucose 125 H (70-99(Fasting)) mg/dl Calcium 9.1 (8.5-10.1) mg/dl Total Bilirubin 1.4 H (0.2-1.0) mg/dl AST 32 (13-39) U/L ALT 36 (7-52) U/L Alkaline Phosphatase 76 (34-104) U/L Troponin I High Sens 7.1 (0-20) pg/ml Total Protein 6.7 (6.0-8.3) gm/dl Albumin 3.9 (3.4-5.0) gm/dl Globulin 2.8 (2.5-4.0) gm/dl Albumin/Globulin Ratio 1.4 (0.9-2) Lipase 15 (11-82) U/L SARS-CoV-2, RNA, NAAT (NEGATIVE) 03/22/22 Range/Units 15:23 WBC (4.8-10.8) K/ul RBC (4.63-6.08) M/uL Hgb (14.0-18.0) g/dl Hct (40.1-51.0) % MCV (80.0-100.0) fL MCH (25.0-34.0) pg MCHC (32.0-36.0) g/dL RDW Std Deviation (36.4-46.3) fL RDW Coeff of Folri (11.5-14.5) % Plt Count (130-400) K/uL MPV (9.4-12.4) fL Immature Gran % (Auto) % Neut % (Auto) % Lymph % (Auto) % Frio % (Auto) % Eos % (Auto) % Baso % (Auto) % Neut # (Auto) (1.4-6.5) K/uL Lymph # (Auto) (1.2-3.4) K/uL Frio # (Auto) (0.24-0.82) K/uL Eos # (Auto) (0-0.50) K/uL Baso # (Auto) (0-0.2) K/uL Immature Gran # (Auto) (0.00-0.02) K/uL PT (9.0-12.0) Seconds INR (0.9-1.1) APTT (21.0-31.0) Seconds PTT Ratio Sodium (136-145) mmol/L Potassium (3.5-5.1) mmol/L Chloride (98-107) mmol/L Carbon Dioxide (21-32) mmol/L Anion Gap (3-11) BUN (6-23) mg/dl Creatinine (0.6-1.4) mg/dl Est Cr Clr Drug Dosing ml/min Est GFR ( Amer) ml/min Est GFR (Non-Af Amer) ml/min BUN/Creatinine Ratio (10-20) Glucose (70-99(Fasting)) mg/dl Calcium (8.5-10.1) mg/dl Total Bilirubin (0.2-1.0) mg/dl AST (13-39) U/L ALT (7-52) U/L Alkaline Phosphatase (34-104) U/L Troponin I High Sens (0-20) pg/ml Total Protein (6.0-8.3) gm/dl Albumin (3.4-5.0) gm/dl Globulin (2.5-4.0) gm/dl Albumin/Globulin Ratio (0.9-2) Lipase (11-82) U/L SARS-CoV-2, RNA, NAAT NEGATIVE (NEGATIVE) Administered Medications Discontinued Medications Sodium Chloride (Nss) 500 mls @ 999 mls/hr IV .Q31M STA Stop: 03/22/22 11:42 Last Infusion: 03/22/22 12:14 Dose: 0 mls/hr Documented By: Admin: 03/22/22 11:30 Dose: 999 mls/hr Documented By: NH Sodium Chloride (Nss 1000ml) 1,000 mls @ 999 mls/hr IV .Q1H1M ONE Stop: 03/22/22 15:21 Last Admin: 03/22/22 15:19 Dose: 999 mls/hr Documented By: SHANIA Ioversol (Optiray 320 100ml) 90 ml IV ONCE ONE Stop: 03/22/22 13:34 Last Admin: 03/22/22 13:25 Dose: 90 ml Documented By: BRAshley Ondansetron HCl (Ondansetron Inj 2 Mg/Ml 2 Ml Vial) 4 mg IV NOW STA Stop: 03/22/22 11:13 Last Admin: 03/22/22 11:30 Dose: 4 mg Documented By: KS Imaging Data Radiologist's Impression: Chest X-Ray 03/22/22 11:12 XR chest 1V portable HISTORY: 86 years-old Male upper pain weakness COMPARISON: Chest radiograph 02/20/2022 TECHNIQUE: Portable AP view of the chest FINDINGS: Cardiomediastinal and hilar silhouettes are within normal limits. No pneumothorax, pleural effusion, airspace consolidation or overt pulmonary edema. Degenerative changes of the shoulders and spine. IMPRESSION: No acute process. ACT 112: Negative or not required by law. The above report was generated using voice recognition software. It may contain grammatical, syntax or spelling errors. Electronically signed by: Bruce Gudino M.D. 03/22/2022 11:43 AM Abdomen/Pelvis CT 03/22/22 11:14 CT abd pelvis oral and IV con CLINICAL HISTORY: vomiting TECHNIQUE: Helical axial images of the abdomen and pelvis were obtained and displayed. Automated dose lowering techniques and/or adjustment according to patient size were utilized for this exam. This exam was performed with intravenous contrast. COMPARISON: Comparison is made to CT abdomen pelvis 03/09/2022 FINDINGS: Lower chest: Bibasilar atelectasis versus scarring is seen. Liver: Unremarkable. No focal lesions are seen. Gallbladder and biliary tree: Patient is status post cholecystectomy. No intra- or extrahepatic biliary ductal dilation. Pancreas: Unremarkable, no focal lesions. Spleen: Unremarkable. Adrenals: Unremarkable. Kidneys and ureters: Parapelvic cysts are seen bilaterally. Bladder: Diffuse homogeneous wall thickening is seen. Reproductive organs: Prostatomegaly is seen. Bowel: Multifocal small bowel dilation is seen, more extensive than in the prior exam and most pronounced in the left upper quadrant measuring up to 41 mm, unchanged from prior exam. Postsurgical changes of bowel resection are seen. Surgical clips are seen in the distal esophagus and there is a small hiatal hernia. There is a short segment of under distended distal small bowel which may represent a transition point. Lymph nodes Retroperitoneal: Subcentimeter lymph nodes are noted. Pelvic: Unremarkable. Mesenteric: Subcentimeter lymph nodes are noted. Peritoneum: No ascites or pneumoperitoneum is seen. Vessels: Atherosclerotic calcifications are seen. Abdominal wall: Unremarkable. Bones: Degenerative changes in the visualized spine. IMPRESSION: 1. Redemonstration of multiple distended and fluid-filled loops of small bowel measuring up to 41 mm in diameter, dilation appears somewhat more extensive than in prior exam, particularly in the right lower quadrant. No evidence of ischemia. The colon is decompressed. Findings are suggestive of partial small bowel obstruction versus ileus. 2. Prostatomegaly and bowel wall thickening likely due to chronic obstruction. ACT 112: Negative or not required by law. Electronically signed by: Jeremy Velasco M.D. 03/22/2022 1:[address] 03/22/22 11:14 CT head/brain wo con CLINICAL HISTORY: vertigo Technique: Contiguous axial CT images of the head were acquired from the base of the skull to the vertex without intravenous contrast administration. Images were viewed in brain, subdural and bone windows. Automated dose lowering techniques and/or adjustment according to patient size were utilized for this exam. Comparison: Comparison is made to CTA head 03/09/2022 and MRI brain 522 Findings: The ventricles, basal cisterns, and cerebral sulci are normal. There is no acute intracranial hemorrhage or evidence of acute territorial infarction. Neither mass effect, shift of the midline structures, nor abnormal extra-axial fluid collections are shown. Imaged portions of the paranasal sinuses and mastoid air cells are clear. The orbits appear normal. There are no acute fractures of the calvaria or scalp swelling. Impression: No acute intracranial hemorrhage, no evidence of acute territorial infarction or other acute intracranial disease process. ACT 112: Negative or not required by law. Electronically signed by: Jeremy Velasco M.D. 03/22/2022 1:33 PM Discharge Plan Visit Data Chief Complaint: Vomiting Stated Complaint: NAUSEA, VOMITING, DIZZY ED Provider: Kemal Solorio Discharge Problem: Small bowel obstruction, Acute dehydration, Vomiting Patient Disposition: Being Evaluated by Hospitalist Forms Stand Alone Forms: My [facility] Prescriptions Prescriptions: No Action aspirin 81 mg tablet,delayed release (DR/EC) 81 mg PO HS Label Comments: * Patient said he stopped the baby aspirin, however it was on his med list from 03/21. clopidogrel 75 mg Tablet 75 mg PO QAM Qty: 30 1RF pantoprazole 40 mg tablet,delayed release (DR/EC) 40 mg PO QAM doxazosin [Cardura] 4 mg tablet 8 mg PO HS finasteride [Proscar] 5 mg tablet 5 mg PO QAM atorvastatin 40 mg Tablet 40 mg PO QAM Qty: 30 0RF fluticasone propionate 50 mcg/actuation [place],Suspension 2 spray INTRANASAL QAM Rx Instructions: administer into each nostril PreserVision AREDS-2 250-90-40-1 mg Capsule 1 tab PO AMHS Referrals Referrals: Grant Gold DO [Primary Care Provider] -
[2022-03-22 11:45] LABS: Albumin Globulin Ratio 1.4 (0.9-2); Albumin Level 3.9 gm/dl (3.4-5.0); BUN Creatinine Ratio 18.2 (10-20); Bilirubin,Total 1.4 mg/dl (0.2-1.0); Calcium 9.1 mg/dl (8.5-10.1); Creatinine Clr Calc Pharmacy 40.3 ml/min; Est GFR (Non-African American) 49.2 ml/min; Globulin 2.8 gm/dl (2.5-4.0); Potassium 4.6 mmol/L (3.5-5.1); Total Protein 6.7 gm/dl (6.0-8.3)
--- NOTE | 2022-03-22 11:45 | XRay Report ---
XR chest 1V portable HISTORY: 86 years-old Male upper pain weakness COMPARISON: Chest radiograph 02/20/2022 TECHNIQUE: Portable AP view of the chest FINDINGS: Cardiomediastinal and hilar silhouettes are within normal limits. No pneumothorax, pleural effusion, airspace consolidation or overt pulmonary edema. Degenerative changes of the shoulders and spine. IMPRESSION: No acute process. ACT 112: Negative or not required by law. The above report was generated using voice recognition software. It may contain grammatical, syntax o r spelling errors. Electronically signed by: Bruce Gudino M.D. 03/22/2022 11:43 AM
[2022-03-22 11:46] LABS: Troponin I High Sensitivity 7.1 pg/ml (0-20)
[2022-03-22 11:49] LABS: INR 1.1 (0.9-1.1); Partial Thromboplastin Ratio 0.8; Partial Thromboplastin Time 23.1 Seconds (21.0-31.0); Prothrombin Time 11.4 Seconds (9.0-12.0)
[2022-03-22 11:50] LABS: Basophils # (auto) 0.01 K/uL (0-0.2); Basophils % (auto) 0.1 %; Eosinophils # (auto) 0.01 K/uL (0-0.50); Eosinophils % (auto) 0.1 %; Immature Granulocytes # (auto) 0.03 K/uL (0.00-0.02); Immature Granulocytes % (auto) 0.4 %; Lymphocytes # (auto) 0.23 K/uL (1.2-3.4); Lymphocytes % (auto) 2.7 %; Monocytes # (auto) 0.55 K/uL (0.24-0.82); Monocytes % (auto) 6.6 %; Neutrophils # (auto) 7.56 K/uL (1.4-6.5); Neutrophils % (auto) 90.1 %
[2022-03-22] MEDS ORDERED: OPTIRAY 320 100ml IV ONE (13:33)
--- NOTE | 2022-03-22 13:35 | CT Scan Report ---
CT head/brain wo con CLINICAL HISTORY: vertigo Technique: Contiguous axial CT images of the head were acquired from the base of the skull to the liudmila angélica without intravenous contrast administration. Images were viewed in brain, subdural and bone [facility] . Automated dose lowering techniques and/or adjustment according to patient size were utilized for this exam. Comparison: Comparison is made to CTA head 03/09/2022 and MRI brain 522 Findings: The ventricles, basal cisterns, and cerebral sulci are normal. There is no acute intracranial hemorrh age or evidence of acute territorial infarction. Neither mass effect, shift of the midline structures , nor abnormal extra-axial fluid collections are shown. Imaged portions of the paranasal sinuses and mastoid air cells are clear. The orbits appear normal. There are no acute fractures of the calvaria or scalp swelling. Impression: No acute intracranial hemorrhage, no evidence of acute territorial infarction or other acute intracra nial disease process. ACT 112: Negative or not required by law. Electronically signed by: Jeremy Velasco M.D. 03/22/2022 1:33 PM
--- NOTE | 2022-03-22 13:55 | CT Scan Report ---
CT abd pelvis oral and IV con CLINICAL HISTORY: vomiting TECHNIQUE: Helical axial images of the abdomen and pelvis were obtained and displayed. Automated dose lowering techniques and/or adjustment according to patient size were utilized for this exam. This e xam was performed with intravenous contrast. COMPARISON: Comparison is made to CT abdomen pelvis 03/09/2022 FINDINGS: Lower chest: Bibasilar atelectasis versus scarring is seen. Liver: Unremarkable. No focal lesions are seen. Gallbladder and biliary tree: Patient is status post cholecystectomy. No intra- or extrahepatic bilia ry ductal dilation. Pancreas: Unremarkable, no focal lesions. Spleen: Unremarkable. Adrenals: Unremarkable. Kidneys and ureters: Parapelvic cysts are seen bilaterally. Bladder: Diffuse homogeneous wall thickening is seen. Reproductive organs: Prostatomegaly is seen. Bowel: Multifocal small bowel dilation is seen, more extensive than in the prior exam and most pronou nced in the left upper quadrant measuring up to 41 mm, unchanged from prior exam. Postsurgical change s of bowel resection are seen. Surgical clips are seen in the distal esophagus and there is a small h iatal hernia. There is a short segment of under distended distal small bowel which may represent a tr ansition point. Lymph nodes Retroperitoneal: Subcentimeter lymph nodes are noted. Pelvic: Unremarkable. Mesenteric: Subcentimeter lymph nodes are noted. Peritoneum: No ascites or pneumoperitoneum is seen. Vessels: Atherosclerotic calcifications are seen. Abdominal wall: Unremarkable. Bones: Degenerative changes in the visualized spine. IMPRESSION: 1. Redemonstration of multiple distended and fluid-filled loops of small bowel measuring up to 41 mm in diameter, dilation appears somewhat more extensive than in prior exam, particularly in the right lower quadrant. No evidence of ischemia. The colon is decompressed. Findings are suggestive of partia l small bowel obstruction versus ileus. 2. Prostatomegaly and bowel wall thickening likely due to chronic obstruction. ACT 112: Negative or not required by law. Electronically signed by: Jeremy Velasco M.D. 03/22/2022 1:54 PM
[2022-03-22] MEDS ORDERED: SODIUM CHLORIDE 0.9% 1000ML 1,000 ML IV ONE (14:21)
--- NOTE | 2022-03-22 15:08 | History & Physical Report ---
Date of Service March 22, 2022 Assessment & Plan (1) Small bowel obstruction: (2) Vomiting: Plan: - Admit to med surg with telemetry - Consult general surgery, continue direct n.p.o., no sips or ice allowed, NG tube placement, check KUB- appreciate recs - Hx of prior SBO and had bowel resection x 2 in the past, recent hospitalization for partial SBP resolved with conservative measures. -Consult GI, follows with Dr. Pozo as an outpatient, was scheduled to have follow-up EGD later this week, currently off aspirin and Plavix for such so we will continue to hold for now -Continue pantoprazole IV -Antiemetics -Further discussion regarding bowel regimen prior to discharge needs to be held,? 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 Worse because dehydrated with nausea, or if this is since CVA as it was a lacunar infarct,? Elevated heart rate? If secondary to Proscar? Checking orthostatics as above, monitor (5) HLD (hyperlipidemia): Plan: -Continue statin therapy (6) BPH (benign prostatic hyperplasia): Plan: -Continue finasteride, doxazosin DVT PPx: - teds, scds, subcu heparin CODE: Full code Dispo: From home, likely to remain in the hospital x 1-2 days History of Present Illness Chief Complaint: Abdominal Pain Primary Care Provider: Grant Gold, DO This is an 86-year-old M with PMHx of monoclonal paraproteinemia, history of lacunar CVA, SVT, history of small bowel obstruction, BPH, elevated PSA, osteoarthritis, HLD and other medical conditions listed below who presents to the ER with worsening abdominal pain. He initially presented to the ER here on 03/09 with vomiting, nausea and abdominal pain. During his last ER visit he required an NG tube placed however the partial small bowel obstruction resolved on its own without surgical intervention. Prior to that he underwent outpatient EGD on 02/25 a impacted food bolus. Schatzki's ring was noted and 2 ulcers were clipped by GI and was started on pantoprazole. He had a repeat EGD scheduled for next week, and yesterday (03/21) stopped his plavix and aspirin anticipating the procedure. He was also noted to have left hand tingling and due to his history of stroke in the past he was placed on Plavix and aspirin with the instructions to stop aspirin after 21 days. Patient was seen by his PCP, in the office yesterday and was doing ok at that point. Last evening he ate ground beef, mashed potatoes and gravy with one peice of bread with gravy on it. This morning he awoke to being nauseous and vomiting around 6 am. Nausea has persisted throughout the day and has vomitted about 6 times. He reports his last bowel movement was yesterday afternoon and was hard and constipated, this was his first bowel movement since 10 days prior when he was hospitalized and required a suppository to promote bowel movement. He has not been able to tolerate MiraLAX at home as he "has just not felt up to it". He has been drinking water, however has not been drinking coffee or Mountain Dew which were 2 of his beverages of choice prior to all of this happening. His and youngest son are present at bedside and helps support the history. CT of the abdomen and pelvis reviewed today showing 1. Redemonstration of multiple distended and fluid-filled loops of small bowel measuring up to 41 mm in diameter, dilation appears somewhat more extensive than in prior exam, particularly in the right lower quadrant. No evidence of ischemia. The colon is decompressed. Findings are suggestive of partial small bowel obstruction versus ileus. 2. Prostatomegaly and bowel wall thickening likely due to chronic obstruction. Allergies Allergy/AdvReac Type Severity Reaction Status Date / Time Penicillins Allergy Mild RASH Verified 03/19/22 11:17 soy Allergy Mild SHAKY, Verified 03/19/22 11:17 CHILLS, BM thiamine (vitamin B1) Allergy Mild RASH Verified 03/19/22 11:17 Home Medications Medication Instructions Recorded Confirmed Type doxazosin 4 mg tablet (Cardura) 8 mg PO HS 05/25/21 03/22/22 History finasteride 5 mg tablet (Proscar) 5 mg PO QAM 05/25/21 03/22/22 History atorvastatin 40 mg tablet 40 mg PO QAM #30 tabs 05/26/21 03/22/22 Rx fluticasone propionate 50 2 spray intranasal QAM 02/20/22 03/22/22 History mcg/actuation nasal spray,suspension vit C 250 mg-vit E 90 mg-zinc 40 1 tab PO AMHS 02/20/22 03/22/22 History mg-copper 1 [id number] capsule (PreserVision AREDS-2) aspirin 81 mg tablet,delayed 81 mg PO HS 03/09/22 03/22/22 History release clopidogrel 75 mg tablet 75 mg PO QAM #30 tabs 03/11/22 03/22/22 Rx pantoprazole 40 mg tablet,delayed 40 mg PO QAM 03/19/22 03/22/22 History release Past Med/Surg History Medical History Anemia Barretts esophagus BPH (benign prostatic hyperplasia) CVA (cerebral vascular accident) May 2021--unknown cause---currently on plavix--follows with Dr. Austin Hearing deficit History of anesthesia reaction difficulty waking History of supraventricular tachycardia follows with [facility] HLD (hyperlipidemia) On anticoagulant therapy plavix daily Schatzki's ring Small bowel obstruction Surgical History History of appendectomy History of arthroscopy of right shoulder History of bilateral cataract extraction History of cholecystectomy History of colonoscopy History of esophagogastroduodenoscopy (EGD) History of laparotomy 2006-exploratory laparotomy/lysis of adhesions at [facility] History of resection of small bowel 2008. Dr. Carlson [place] [facility] [place] History of tooth extraction Family History Family/Other Coronary heart disease Other No family history of adverse response to anesthesia Social History Smoking Status: Never smoker Second Hand Exposure: No; Hx Alcohol Use: No Hx Substance Use: No Preferred Language: Greek Communication Ability: Effective Paymaster Of Purses Required: No Beliefs That Will Affect Care: None marital status: Current Living Situation: Spouse How many Children do You have: 3 Feels Safe at Home: Yes Assistive Devices: Glasses and Hearing Aid - Bilateral Review of Systems Review of Systems: Constitutional: No fever, sweats or chills Eyes: No diplopia, no worsening or blurred vision ENT: normal hearing, no trouble swallowing Respiratory: No cough, sputum, dyspnea at rest or on exertion Cardiovascular: No chest pain, tightness or palpitations Abdomen: As per HPI, +nausea, +vomiting, no diarrhea, last BM yesterday, prior constipation Musculoskeletal: No joint pain, calf pain, swelling Neurologic: No weakness, numbness/tingling, or balance problems Psychiatric: No anxiety or depression Skin: No rash or itch Physical Exam Physical Exam: General: awake, alert, no apparent distress, appears ill Head: Normocephalic, atraumatic ENT: PERRL, EOMI, no pharyngeal exudate, mucous membranes moist Chest: Clear to auscultation, on room air, no adventitious breath sounds Cardiac: Regular rate and rhythm, no murmur, no JVD, normal peripheral pulses, good capillary refill Abdominal: Hypoactive BS in the LLQ and RLQ, active BS in the RUQ and LUQ quadrants, soft, some distension, minimally tender to palpation, no rebound or guarding Extremities: Normal inspection, no peripheral edema or erythema, calfs nontender to palpation Psych: Normal mood and affect Neuro: AAO x 3, strength intact bilaterally and rated 5/5, no motor deficits, speech is clear, no peripheral sensory deficits Results & Data Results & Data ([facility]) Vital Signs (Past 12 Hours) Vital Signs Temp Pulse Pulse Resp BP BP Pulse Ox 03/22/22 13:16 90 16 107/61 97 03/22/22 12:30 94 H 24 114/59 L 97 03/22/22 12:00 93 H 23 103/57 L 96 03/22/22 13:13 93 H 20 107/61 97 03/22/22 11:30 85 21 114/57 L 97 03/22/22 11:28 88 29 H 117/64 98 03/22/22 10:28 89 20 116/69 98 03/22/22 11:43 98 03/22/22 10:29 89 17 116/69 100 03/22/22 10:23 37.0 C 91 H 25 H 117/70 99 O2 Del Method 03/22/22 13:16 Room Air 03/22/22 12:30 Room Air 03/22/22 12:00 Room Air 03/22/22 13:13 Room Air 03/22/22 11:30 Room Air 03/22/22 11:28 Room Air 03/22/22 10:28 Room Air 03/22/22 11:43 Room Air 03/22/22 10:29 Room Air 03/22/22 10:23 Room Air Laboratory Results 03/22/22 03/22/22 03/22/22 10:50 10:50 10:50 WBC 8.39 RBC 4.58 L Hgb 13.4 L Hct 40.4 MCV 88.2 MCH 29.3 MCHC 33.2 RDW Std Deviation 44.4 RDW Coeff of Flori 13.7 Plt Count 213 MPV 12.6 H Immature Gran % (Auto) 0.4 Neut % (Auto) 90.1 Lymph % (Auto) 2.7 Sterling % (Auto) 6.6 Eos % (Auto) 0.1 Baso % (Auto) 0.1 Neut # (Auto) 7.56 H Lymph # (Auto) 0.23 L Sterling # (Auto) 0.55 Eos # (Auto) 0.01 Baso # (Auto) 0.01 Immature Gran # (Auto) 0.03 H PT 11.4 INR 1.1 APTT 23.1 PTT Ratio 0.8 Sodium 139 Potassium 4.6 Chloride 106 Carbon Dioxide 22 Anion Gap 11 BUN 24 H Creatinine 1.32 Est Cr Clr Drug Dosing 40.3 Est GFR ( Amer) 57.0 Est GFR (Non-Af Amer) 49.2 BUN/Creatinine Ratio 18.2 Glucose 125 H Calcium 9.1 Total Bilirubin 1.4 H AST 32 ALT 36 Alkaline Phosphatase 76 Troponin I High Sens 7.1 Total Protein 6.7 Albumin 3.9 Globulin 2.8 Albumin/Globulin Ratio 1.4 Lipase 15 Diagnostic Findings Chest X-Ray 03/22/22 11:12 XR chest 1V portable HISTORY: 86 years-old Male upper pain weakness COMPARISON: Chest radiograph 02/20/2022 TECHNIQUE: Portable AP view of the chest FINDINGS: Cardiomediastinal and hilar silhouettes are within normal limits. No pneumothorax, pleural effusion, airspace consolidation or overt pulmonary edema. Degenerative changes of the shoulders and spine. IMPRESSION: No acute process. ACT 112: Negative or not required by law. The above report was generated using voice recognition software. It may contain grammatical, syntax or spelling errors. Electronically signed by: Bruce Gudino M.D. 03/22/2022 11:43 AM Abdomen/Pelvis CT 03/22/22 11:14 CT abd pelvis oral and IV con CLINICAL HISTORY: vomiting TECHNIQUE: Helical axial images of the abdomen and pelvis were obtained and displayed. Automated dose lowering techniques and/or adjustment according to patient size were utilized for this exam. This exam was performed with intravenous contrast. COMPARISON: Comparison is made to CT abdomen pelvis 03/09/2022 FINDINGS: Lower chest: Bibasilar atelectasis versus scarring is seen. Liver: Unremarkable. No focal lesions are seen. Gallbladder and biliary tree: Patient is status post cholecystectomy. No intra- or extrahepatic biliary ductal dilation. Pancreas: Unremarkable, no focal lesions. Spleen: Unremarkable. Adrenals: Unremarkable. Kidneys and ureters: Parapelvic cysts are seen bilaterally. Bladder: Diffuse homogeneous wall thickening is seen. Reproductive organs: Prostatomegaly is seen. Bowel: Multifocal small bowel dilation is seen, more extensive than in the prior exam and most pronounced in the left upper quadrant measuring up to 41 mm, unchanged from prior exam. Postsurgical changes of bowel resection are seen. Surgical clips are seen in the distal esophagus and there is a small hiatal hernia. There is a short segment of under distended distal small bowel which may represent a transition point. Lymph nodes Retroperitoneal: Subcentimeter lymph nodes are noted. Pelvic: Unremarkable. Mesenteric: Subcentimeter lymph nodes are noted. Peritoneum: No ascites or pneumoperitoneum is seen. Vessels: Atherosclerotic calcifications are seen. Abdominal wall: Unremarkable. Bones: Degenerative changes in the visualized spine. IMPRESSION: 1. Redemonstration of multiple distended and fluid-filled loops of small bowel measuring up to 41 mm in diameter, dilation appears somewhat more extensive than in prior exam, particularly in the right lower quadrant. No evidence of ischemia. The colon is decompressed. Findings are suggestive of partial small bowel obstruction versus ileus. 2. Prostatomegaly and bowel wall thickening likely due to chronic obstruction. ACT 112: Negative or not required by law. Electronically signed by: Jeremy Velasco M.D. 03/22/2022 1:[address] 03/22/22 11:14 CT head/brain wo con CLINICAL HISTORY: vertigo Technique: Contiguous axial CT images of the head were acquired from the base of the skull to the vertex without intravenous contrast administration. Images were viewed in brain, subdural and bone windows. Automated dose lowering techniques and/or adjustment according to patient size were utilized for this exam. Comparison: Comparison is made to CTA head 03/09/2022 and MRI brain 522 Findings: The ventricles, basal cisterns, and cerebral sulci are normal. There is no acute intracranial hemorrhage or evidence of acute territorial infarction. Neither mass effect, shift of the midline structures, nor abnormal extra-axial fluid collections are shown. Imaged portions of the paranasal sinuses and mastoid air cells are clear. The orbits appear normal. There are no acute fractures of the calvaria or scalp swelling. Impression: No acute intracranial hemorrhage, no evidence of acute territorial infarction or other acute intracranial disease process. ACT 112: Negative or not required by law. Electronically signed by: Jeremy Velasco M.D. 03/22/2022 1:33 PM Code Status & VTE Plan Code Status Full code - discussed with the patient at [facility] Supervising Physician Co-Signing Physician Notes And is an 86-year-old male with multiple comorbidities including recurrent small bowel obstruction presents with history of worsening abdominal pain. Abdominal pain is associated with nausea, vomiting. Patient was recently diagnosed to have CVA and was placed on aspirin, Plavix for 21 days. He also had an EGD 3 weeks ago which showed esophageal ulcers, Schatzki's ring. Currently his aspirin and Plavix were held for EGD to reassess the ulcers. Patient's last bowel movement was yesterday. He had several episodes of nausea, vomiting since this morning. Patient also has been complaining of dizziness which she describes like vertigo since the stroke going on for about 4 to 6 months. Please review HPI for complete details of presentation. Blood work reviewed. CT head showed no acute intracranial findings. Chest x-ray showed no acute process. CT abdomen showed multiple distended and fluid-filled loops of small bowel measuring up to 41 mm in diameter, dilatation appears somewhat more extensive than prior imaging, particularly in the right lower quadrant. No shavon dence of ischemia noted. Findings are suggestive of partial small bowel bowel obstruction. Patient was evaluated by general surgery while in the ED. NG tube was ordered to be placed. Plan for conservative management with bowel rest and IV fluids. On exam patient is moderately built and nourished, chronically appearing, no apparent distress, normocephalic atraumatic, EOMI, normal breath sounds, clear to auscultation, S1-S2, tachycardia, no pedal edema, abdomen soft, nontender, hypoactive to absent bowel sounds, mild distention, alert, awake, oriented, grossly no focal deficits. Patient is admitted for management of recurrent small bowel obstruction. NG tube requested to be placed. Bowel rest. IV fluids. Repeat KUB in the morning. Resume aspirin, Plavix as soon as possible. GI is consulted as well. Recurrent SVT. Currently not on any AV celso blocking agents. Check orthostatics for dizziness. Cardiology consulted as well agree with checking TSH. I personally reviewed the record. Patient is interviewed and examined at bedside. Patient's care is coordinated with Lisa Connell PA-C. Please refer to the documentation above for details of patient's presentation and for discussion of other issues. (1) Vomiting Nausea presence: with nausea Vomiting type: unspecified Qualified Code(s): R11.2 - Nausea with vomiting, unspecified
--- NOTE | 2022-03-22 15:55 | Surgery Consultation ---
Date of Consultation March 22, 2022 Assessment & Plan (1) Small bowel obstruction: Would reinstitute conservative measures. Recommend NG tube placement which we will order. IV fluid rehydration. Serial abdominal exams/KUB. We will follow along. Would be difficult surgery and should be used only as a last resort. (2) History of CVA (cerebrovascular accident): History of Present Illness History of Present Illness 86-year-old male with rather extensive abdominal surgical history. He has a history of prior bowel obstructions. He has a history of an open appendectomy, 2 separate bowel resections. He was in the hospital recently with a similar partial small bowel obstruction that resolved with conservative management. He began having nausea vomiting this morning. Minimal abdominal pain. Imaging consistent with small bowel obstruction. Allergies Allergy/AdvReac Type Severity Reaction Status Date / Time Penicillins Allergy Mild RASH Verified 03/19/22 11:17 soy Allergy Mild SHAKY, Verified 03/19/22 11:17 CHILLS, BM thiamine (vitamin B1) Allergy Mild RASH Verified 03/19/22 11:17 Home Medications Medication Instructions Recorded Confirmed Type doxazosin 4 mg tablet (Cardura) 8 mg PO HS 05/25/21 03/22/22 History finasteride 5 mg tablet (Proscar) 5 mg PO QAM 05/25/21 03/22/22 History atorvastatin 40 mg tablet 40 mg PO QAM #30 tabs 05/26/21 03/22/22 Rx fluticasone propionate 50 2 spray intranasal QAM 02/20/22 03/22/22 History mcg/actuation nasal spray,suspension vit C 250 mg-vit E 90 mg-zinc 40 1 tab PO AMHS 02/20/22 03/22/22 History mg-copper 1 [id number] capsule (PreserVision AREDS-2) aspirin 81 mg tablet,delayed 81 mg PO HS 03/09/22 03/22/22 History release clopidogrel 75 mg tablet 75 mg PO QAM #30 tabs 03/11/22 03/22/22 Rx pantoprazole 40 mg tablet,delayed 40 mg PO QAM 03/19/22 03/22/22 History release Patient History Medical History Anemia Barretts esophagus BPH (benign prostatic hyperplasia) CVA (cerebral vascular accident) May 2021--unknown cause---currently on plavix--follows with Dr. Austin Hearing deficit History of anesthesia reaction difficulty waking History of supraventricular tachycardia follows with [facility] HLD (hyperlipidemia) On anticoagulant therapy plavix daily Schatzki's ring Small bowel obstruction Surgical History History of appendectomy History of arthroscopy of right shoulder History of bilateral cataract extraction History of cholecystectomy History of colonoscopy History of esophagogastroduodenoscopy (EGD) History of laparotomy 2006-exploratory laparotomy/lysis of adhesions at [facility] History of resection of small bowel 2008. Dr. Carlson at [facility] [place] History of tooth extraction Family History Family/Other Coronary heart disease Other No family history of adverse response to anesthesia Social History Smoking Status: Never smoker Second Hand Exposure: No; Hx Alcohol Use: No Hx Substance Use: No Preferred Language: Nepalese Communication Ability: Effective Director Of Operations Home Health Required: No Beliefs That Will Affect Care: None marital status: Current Living Situation: Spouse How many Children do You have: 3 Feels Safe at Home: Yes Assistive Devices: Glasses and Hearing Aid - Bilateral Review of Systems Review of Systems: All systems reviewed & are unremarkable except as noted in HPI & below Physical Exam Constitutional: WD/WN, vitals as above no acute distress and not ill appearing Eyes: PERRL, conjunctivae normal, anicteric sclerae EOM intact bilaterally ENMT: external ear and nose normal, oropharynx normal Ears: no hearing impairment Neck: trachea midline, no thyromegaly Respiratory: normal respiratory effort; no respiratory distress and does not use accessory muscles Cardiovascular: Rate/Rhythm: regular rate and regular rhythm Gastrointestinal (Abdomen): Soft. Mild distention. Nontender. Multiple abdominal incisions. Transverse mid abdominal as well as a midline no palpable hernias Skin: no rashes, warm and dry Psychiatric: Orientation: alert, oriented x 3 and cooperative Results & Data ([facility]) Vital Signs (Past 12 Hours) Vital Signs Temp Pulse Pulse Resp BP BP Pulse Ox 03/22/22 13:16 90 16 107/61 97 03/22/22 12:30 94 H 24 114/59 L 97 03/22/22 12:00 93 H 23 103/57 L 96 03/22/22 13:13 93 H 20 107/61 97 03/22/22 11:30 85 21 114/57 L 97 03/22/22 11:28 88 29 H 117/64 98 03/22/22 10:28 89 20 116/69 98 03/22/22 11:43 98 03/22/22 10:29 89 17 116/69 100 03/22/22 10:23 37.0 C 91 H 25 H 117/70 99 O2 Del Method 03/22/22 13:16 Room Air 03/22/22 12:30 Room Air 03/22/22 12:00 Room Air 03/22/22 13:13 Room Air 03/22/22 11:30 Room Air 03/22/22 11:28 Room Air 03/22/22 10:28 Room Air 03/22/22 11:43 Room Air 03/22/22 10:29 Room Air 03/22/22 10:23 Room Air PG Care Time/CCT Total # of Minutes Spent Total Time Spent with Patient: Total time spent is greater than 50% in coordination of care (as documented) at patient's floor/unit and/or counseling patient: Coding Level of Care Code 68651 Initial Inpt Care Lvl 3 Diagnoses Small bowel obstruction K56.609 History of CVA (cerebrovascular accident) Z86.73
--- NOTE | 2022-03-22 17:26 | Electrocardiogram Report ---
Test Reason : Blood Pressure : / mmHG Vent. Rate : 087 BPM Atrial Rate : 087 BPM P-R Int : 210 ms QRS Dur : 120 ms QT Int : 386 ms P-R-T Axes : 029 -67 043 degrees QTc Int : 464 ms Sinus rhythm with 1st degree A-V block Left axis deviation Right bundle branch block Inferior infarct (cited on or before 25-MAY-2021) Abnormal ECG When compared with ECG of 09-MAR-2022 10:44, Questionable change in initial forces of Inferior leads Confirmed by Scott Gomez ([id number]) on 03/22/2022 5:25:54 PM Referred By: REFERRED SELF Confirmed By:Kashif Gomez
[2022-03-22] MEDS ORDERED: ONDANSETRON INJ 2 MG/ML 2 ML VIAL IV PRN (18:42)
[2022-03-22] MEDS ORDERED: SODIUM CHLORIDE 0.9% 1000ML 1,000 ML IV SCH (18:42)
[2022-03-22] MEDS ORDERED: MECLIZINE HCL 25 MG TAB PO PRN (18:42)
--- NOTE | 2022-03-22 19:46 | XRay Report ---
KUB CLINICAL HISTORY: Enteric tube placement. FINDINGS: 2 AP upright views of the lower chest and upper abdomen are compared to study dated and correlated with abdominal CT performed earlier the same day 03/22/2022. An enteric tube is in pl dedra. The tip projects below the diaphragm over the mid to distal stomach. Cholecystectomy clips are n oted in the right upper quadrant. Distended loops of bowel in the upper abdomen suggest obstruction. No intraperitoneal free air is identified. Excreted IV contrast is noted in the renal collecting syst em bilaterally. The lung bases are clear as imaged. IMPRESSION: 1. An enteric tube has been placed as above. 2. Distended loops of bowel in the upper abdomen suggest obstruction. Electronically signed by: Harsh Smalls M.D. 03/22/2022 7:45 PM
[2022-03-22] MEDS: HEPARIN SOD 5,000 UNIT/0.5 ML VIAL SQ SCH (22:15)
[2022-03-23 05:30] LABS: Appearance Urine Clear (Clear); Bilirubin Urine Negative (Negative); Blood Urine Negative (Negative); Color Urine Yellow; Glucose Urine UA Negative (Negative); Ketones Urine 2+ (Negative); Leukocyte Esterase Urine Negative (Negative); Nitrite Urine Negative (Negative); Protein Urine Negative (Negative); Specific Gravity Urine > 1.045 (1.000-1.030); Urobilinogen Urine Negative (Negative)
[2022-03-23] MEDS ORDERED: COUGH DROP (SUGAR FREE) LOZ 24 LOZ/1 BOX BUCCAL STA (05:39)
[2022-03-23 06:37] LABS: Hematocrit (blood only) 32.9 % (40.1-51.0); Mean Corpuscular Hemoglobin 29.6 pg (25.0-34.0); Mean Corpuscular Hgb Conc 33.4 g/dL (32.0-36.0); Mean Corpuscular Volume 88.4 fL (80.0-100.0); Mean Platelet Volume 11.8 fL (9.4-12.4); Platelet Count 172 K/uL (130-400); RDW Coefficient of Variation 14.1 % (11.5-14.5); RDW Standard Deviation 45.7 fL (36.4-46.3); Red Blood Count 3.72 M/uL (4.63-6.08); White Blood Count 5.44 K/ul (4.8-10.8)
--- NOTE | 2022-03-23 07:20 | XRay Report ---
XR KUB/Abdomen 1 view CLINICAL HISTORY: sbo TECHNIQUE: 1 view of the abdomen was obtained. Comparison: Comparison is made to abdomen radiograph 03/22/[address] abdomen pelvis 03/22/2022 FINDINGS: Stable appearance of enteric tube. Degenerative changes are seen in the visualized skeleton. Postsurg ical changes of bowel resection are seen. Bowel loops are not well seen due to a paucity of small bow el gas. Small stool burden is seen. IMPRESSION: Small bowel loops are not well seen due to a paucity of small bowel gas. Radiographic evaluation of s mall bowel obstruction is limited. ACT 112: Negative or not required by law. Electronically signed by: Jeremy Velasco M.D. 03/23/2022 7:19 AM
[2022-03-23 07:27] LABS: Calcium 7.5 mg/dl (8.5-10.1); Creatinine Clr Calc Pharmacy 55.4 ml/min; Est GFR (African American) 83.8 ml/min; Est GFR (Non-African American) 72.3 ml/min; Magnesium 1.6 mg/dl (1.7-2.4); Potassium 3.9 mmol/L (3.5-5.1)
[2022-03-23] MEDS: FLUTICASONE PROPIONATE NA SPR 16 GM BTL SCH (07:47)
[2022-03-23] MEDS: HEPARIN SOD 5,000 UNIT/0.5 ML VIAL SQ SCH ×2 (07:47→22:14)
--- NOTE | 2022-03-23 09:04 | Gastrointestinal Consultation ---
Date of Consultation March 23, 2022 Assessment & Plan (1) Vomitin86 year old male with history of CVA, HLD, recurrent SBO s/p bowel resection, BPH, history SVT, RBBB presented to ER with vomiting, discomfort admitted w/ SBO. Defer to general surgery for management - agree with NPO - NG to LIS - OOB to chair and ambulation as tolerated Regarding his history of food impaction, esophageal ulcers, ring - no plan for endoscopic intervention today - once clear to resume diet, may have mechanical soft diet only - PO PPI 40 mg once daily - he is scheduled for OP EGD 03/28 Thank you for allowing us to participate in the care of this patient. Please call with any acute changes, questions or concerns. Please see addendum below with additional recommendation from my supervising physician. Supervising Physician Co-Signing Physician Notes I performed a history and physical examination of the patient today, including specifically on physical exam - soft abdomen. I have discussed the patient's management with the advanced practitioner. Please refer to the nurse practitioner's note for the documented findings and plan of care. Management of SBO per surgical team. Recall GI if needed. History of Present Illness Reason for Consultation: SBO Requesting Physician: Areli Attending Physician: Zeyad Singleton MD History of Present Illness 86 year old male with history of CVA, HLD, recurrent SBO s/p bowel resection, BPH, history SVT, RBBB presented to ER with vomiting, discomfort admitted w/ SBO. GI asked to evaluate. Pt was seen and evaluated, chart reviewed. Notes this AM he is feeling improved as NG placed to LIS. He is pain free. No nausea. There has been green/brown output. No evidence of black/bloody output. He denies ay passage of gas or stool yet. No fever, chills, CP, SOB. KUB 2021: Small bowel loops are not well seen due to a paucity of small bowel gas. Radiographic evaluation of small bowel obstruction is limited. CTAP 2021: Redemonstration of multiple distended and fluid-filled loops of small bowel measuring up to 41 mm in diameter, dilation appears somewhat more extensive than in prior exam, particularly in the right lower quadrant. No evidence of ischemia. The colon is decompressed. Findings are suggestive of partial small bowel obstruction versus ileus. CTAP 2021: Significantly suboptimal examination without oral and IV contrast. The pelvis was not imaged. There is evidence of several previous bowel resections.There are distended and fluid-filled loops of proximal small bowel in left upper quadrant, as well as decompressed loops of distal small bowel. A transition point is identified at an anastomosis in the central lower pelvis, and the appearance is typical for bowel obstruction. Clinical correlation will be required UGI 2021:No extravasation of contrast at the gastroesophageal junction to suggest a leak. EGD 2021: - Food in the lower third of the esophagus. Removal was successful. - Esophageal ulcers actively bleeding. Clips (MR conditional) were placed. - Moderate Schatzki ring. - Normal stomach. - Medium-sized hiatal hernia. Allergies Allergy/AdvReac Type Severity Reaction Status Date / Time Penicillins Allergy Mild RASH Verified 03/19/22 11:17 soy Allergy Mild SHAKY, Verified 03/19/22 11:17 CHILLS, BM thiamine (vitamin B1) Allergy Mild RASH Verified 03/19/22 11:17 Home Medications Medication Instructions Recorded Confirmed Type doxazosin 4 mg tablet (Cardura) 8 mg PO HS 05/25/21 03/22/22 History finasteride 5 mg tablet (Proscar) 5 mg PO QAM 05/25/21 03/22/22 History atorvastatin 40 mg tablet 40 mg PO QAM #30 tabs 05/26/21 03/22/22 Rx fluticasone propionate 50 2 spray intranasal QAM 02/20/22 03/22/22 History mcg/actuation nasal spray,suspension vit C 250 mg-vit E 90 mg-zinc 40 1 tab PO AMHS 02/20/22 03/22/22 History mg-copper 1 bl-fkeehi-ufukya capsule (PreserVision AREDS-2) aspirin 81 mg tablet,delayed 81 mg PO HS 03/09/22 03/22/22 History release clopidogrel 75 mg tablet 75 mg PO QAM #30 tabs 03/11/22 03/22/22 Rx pantoprazole 40 mg tablet,delayed 40 mg PO QAM 03/19/22 03/22/22 History release Patient History Medical History Anemia Barretts esophagus BPH (benign prostatic hyperplasia) CVA (cerebral vascular accident) May 2021--unknown cause---currently on plavix--follows with Dr. Austin Hearing deficit History of anesthesia reaction difficulty waking History of supraventricular tachycardia follows with [facility] HLD (hyperlipidemia) On anticoagulant therapy plavix daily Schatzki's ring Small bowel obstruction Surgical History History of appendectomy History of arthroscopy of right shoulder History of bilateral cataract extraction History of cholecystectomy History of colonoscopy History of esophagogastroduodenoscopy (EGD) History of laparotomy 2006-exploratory laparotomy/lysis of adhesions at [facility] History of resection of small bowel 2008. Dr. 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 Beliefs That Will Affect Care: None marital status: Current Living Situation: Spouse How many Children do You have: 3 Other Information That Helps Us Care for You: No Feels Safe at Home: Yes Safety Concerns: Feels Safe At This Time Assistive Devices: Glasses Review of Systems Review of Systems: All systems reviewed & are unremarkable except as noted in HPI & below Physical Exam Constitutional: WD/WN, vitals as above Respiratory: normal respiratory effort, lungs clear to auscultation Cardiovascular: Rate/Rhythm: regular rate Gastrointestinal (Abdomen): Inspection/Auscultation: abdomen normal to inspection Percussion/Palpation: abdomen soft; abdomen nontender, no guarding and abdomen not rigid Skin: no rashes, warm and dry Results & Data ([facility]) Vital Signs (Past 12 Hours) Vital Signs Temp Pulse Pulse Resp BP Pulse Ox O2 Del Method 03/23/22 07:39 36.7 C 79 20 128/58 L 97 Room Air 03/23/22 07:16 77 03/23/22 03:50 36.7 C 85 18 121/67 96 Room Air 03/22/22 23:47 36.8 C 100 H 18 122/61 96 Room Air 03/22/22 22:17 98 H Laboratory Results 03/23/22 03/23/22 03/23/22 Range/Units 06:29 06:29 03:00 WBC 5.44 (4.8-10.8) K/ul RBC 3.72 L (4.63-6.08) M/uL Hgb 11.0 L (14.0-18.0) g/dl Hct 32.9 L (40.1-51.0) % MCV 88.4 (80.0-100.0) fL MCH 29.6 (25.0-34.0) pg MCHC 33.4 (32.0-36.0) g/dL RDW Std Deviation 45.7 (36.4-46.3) fL RDW Coeff of Flori 14.1 (11.5-14.5) % Plt Count 172 (130-400) K/uL MPV 11.8 (9.4-12.4) fL Immature Gran % (Auto) % Neut % (Auto) % Lymph % (Auto) % Candler % (Auto) % Eos % (Auto) % Baso % (Auto) % Neut # (Auto) (1.4-6.5) K/uL Lymph # (Auto) (1.2-3.4) K/uL Candler # (Auto) (0.24-0.82) K/uL Eos # (Auto) (0-0.50) K/uL Baso # (Auto) (0-0.2) K/uL Immature Gran # (Auto) (0.00-0.02) K/uL PT (9.0-12.0) Seconds INR (0.9-1.1) APTT (21.0-31.0) Seconds PTT Ratio Sodium 140 (136-145) mmol/L Potassium 3.9 (3.5-5.1) mmol/L Chloride 110 H (98-107) mmol/L Carbon Dioxide 24 (21-32) mmol/L Anion Gap 6 (3-11) BUN 24 H (6-23) mg/dl Creatinine 0.96 D (0.6-1.4) mg/dl Est Cr Clr Drug Dosing 55.4 ml/min Est GFR ( Amer) 83.8 ml/min Est GFR (Non-Af Amer) 72.3 ml/min BUN/Creatinine Ratio 25.0 H (10-20) Glucose 89 (70-99(Fasting)) mg/dl Calcium 7.5 L (8.5-10.1) mg/dl Magnesium 1.6 L (1.7-2.4) mg/dl Total Bilirubin (0.2-1.0) mg/dl AST (13-39) U/L ALT (7-52) U/L Alkaline Phosphatase (34-104) U/L Troponin I High Sens (0-20) pg/ml Total Protein (6.0-8.3) gm/dl Albumin (3.4-5.0) gm/dl Globulin (2.5-4.0) gm/dl Albumin/Globulin Ratio (0.9-2) Lipase (11-82) U/L TSH (0.300-4.500) uIu/ml Urine Color Yellow Urine Appearance Clear (Clear) Urine pH 5.0 (4.5-7.5) Ur Specific Durand > 1.045 H (1.000-1.030) Urine Protein Negative (Negative) Urine Glucose (UA) Negative (Negative) Urine Ketones 2+ H (Negative) Urine Blood Negative (Negative) Urine Nitrite Negative (Negative) Urine Bilirubin Negative (Negative) Urine Urobilinogen Negative (Negative) Ur Leukocyte Esterase Negative (Negative) SARS-CoV-2, RNA, NAAT (NEGATIVE) 03/22/22 03/22/22 03/22/22 Range/Units 15:23 10:50 10:50 WBC (4.8-10.8) K/ul RBC (4.63-6.08) M/uL Hgb (14.0-18.0) g/dl Hct (40.1-51.0) % MCV (80.0-100.0) fL MCH (25.0-34.0) pg MCHC (32.0-36.0) g/dL RDW Std Deviation (36.4-46.3) fL RDW Coeff of Flori (11.5-14.5) % Plt Count (130-400) K/uL MPV (9.4-12.4) fL Immature Gran % (Auto) % Neut % (Auto) % Lymph % (Auto) % Candler % (Auto) % Eos % (Auto) % Baso % (Auto) % Neut # (Auto) (1.4-6.5) K/uL Lymph # (Auto) (1.2-3.4) K/uL Candler # (Auto) (0.24-0.82) K/uL Eos # (Auto) (0-0.50) K/uL Baso # (Auto) (0-0.2) K/uL Immature Gran # (Auto) (0.00-0.02) K/uL PT (9.0-12.0) Seconds INR (0.9-1.1) APTT (21.0-31.0) Seconds PTT Ratio Sodium 139 (136-145) mmol/L Potassium 4.6 (3.5-5.1) mmol/L Chloride 106 (98-107) mmol/L Carbon Dioxide 22 (21-32) mmol/L Anion Gap 11 (3-11) BUN 24 H (6-23) mg/dl Creatinine 1.32 (0.6-1.4) mg/dl Est Cr Clr Drug Dosing 40.3 ml/min Est GFR ( Amer) 57.0 ml/min Est GFR (Non-Af Amer) 49.2 ml/min BUN/Creatinine Ratio 18.2 (10-20) Glucose 125 H (70-99(Fasting)) mg/dl Calcium 9.1 (8.5-10.1) mg/dl Magnesium (1.7-2.4) mg/dl Total Bilirubin 1.4 H (0.2-1.0) mg/dl AST 32 (13-39) U/L ALT 36 (7-52) U/L Alkaline Phosphatase 76 (34-104) U/L Troponin I High Sens 7.1 (0-20) pg/ml Total Protein 6.7 (6.0-8.3) gm/dl Albumin 3.9 (3.4-5.0) gm/dl Globulin 2.8 (2.5-4.0) gm/dl Albumin/Globulin Ratio 1.4 (0.9-2) Lipase 15 (11-82) U/L TSH 1.031 (0.300-4.500) uIu/ml Urine Color Urine Appearance (Clear) Urine pH (4.5-7.5) Ur Specific Durand (1.000-1.030) Urine Protein (Negative) Urine Glucose (UA) (Negative) Urine Ketones (Negative) Urine Blood (Negative) Urine Nitrite (Negative) Urine Bilirubin (Negative) Urine Urobilinogen (Negative) Ur Leukocyte Esterase (Negative) SARS-CoV-2, RNA, NAAT NEGATIVE (NEGATIVE) 03/22/22 03/22/22 Range/Units 10:50 10:50 WBC 8.39 (4.8-10.8) K/ul RBC 4.58 L (4.63-6.08) M/uL Hgb 13.4 L (14.0-18.0) g/dl Hct 40.4 (40.1-51.0) % MCV 88.2 (80.0-100.0) fL MCH 29.3 (25.0-34.0) pg MCHC 33.2 (32.0-36.0) g/dL RDW Std Deviation 44.4 (36.4-46.3) fL RDW Coeff of Flori 13.7 (11.5-14.5) % Plt Count 213 (130-400) K/uL MPV 12.6 H (9.4-12.4) fL Immature Gran % (Auto) 0.4 % Neut % (Auto) 90.1 % Lymph % (Auto) 2.7 % Candler % (Auto) 6.6 % Eos % (Auto) 0.1 % Baso % (Auto) 0.1 % Neut # (Auto) 7.56 H (1.4-6.5) K/uL Lymph # (Auto) 0.23 L (1.2-3.4) K/uL Candler # (Auto) 0.55 (0.24-0.82) K/uL Eos # (Auto) 0.01 (0-0.50) K/uL Baso # (Auto) 0.01 (0-0.2) K/uL Immature Gran # (Auto) 0.03 H (0.00-0.02) K/uL PT 11.4 (9.0-12.0) Seconds INR 1.1 (0.9-1.1) APTT 23.1 (21.0-31.0) Seconds PTT Ratio 0.8 Sodium (136-145) mmol/L Potassium (3.5-5.1) mmol/L Chloride (98-107) mmol/L Carbon Dioxide (21-32) mmol/L Anion Gap (3-11) BUN (6-23) mg/dl Creatinine (0.6-1.4) mg/dl Est Cr Clr Drug Dosing ml/min Est GFR ( Amer) ml/min Est GFR (Non-Af Amer) ml/min BUN/Creatinine Ratio (10-20) Glucose (70-99(Fasting)) mg/dl Calcium (8.5-10.1) mg/dl Magnesium (1.7-2.4) mg/dl Total Bilirubin (0.2-1.0) mg/dl AST (13-39) U/L ALT (7-52) U/L Alkaline Phosphatase (34-104) U/L Troponin I High Sens (0-20) pg/ml Total Protein (6.0-8.3) gm/dl Albumin (3.4-5.0) gm/dl Globulin (2.5-4.0) gm/dl Albumin/Globulin Ratio (0.9-2) Lipase (11-82) U/L TSH (0.300-4.500) uIu/ml Urine Color Urine Appearance (Clear) Urine pH (4.5-7.5) Ur Specific Durand (1.000-1.030) Urine Protein (Negative) Urine Glucose (UA) (Negative) Urine Ketones (Negative) Urine Blood (Negative) Urine Nitrite (Negative) Urine Bilirubin (Negative) Urine Urobilinogen (Negative) Ur Leukocyte Esterase (Negative) SARS-CoV-2, RNA, NAAT (NEGATIVE) (1) Vomiting Nausea presence: with nausea Vomiting type: unspecified Qualified Code(s): R11.2 - Nausea with vomiting, unspecified
--- NOTE | 2022-03-23 09:21 | Cardiology Consultation ---
Date of Consultation March 23, 2022 Assessment & Plan (1) SVT (supraventricular tachycardia): (2) Small bowel obstruction: (3) Hypomagnesemia: Plan Recommend continued telemetry monitoring. No evidence of supraventricular tachycardia overnight. Low-dose AV celso blocking agent may be considered with recurrent SVT. Replace magnesium as indicated. Bedside 2D transthoracic echocardiogram demonstrates preserved LV systolic function without regional wall motion abnormality. Management of small bowel obstruction as per internal medicine. History of Present Illness Reason for Consultation: PSVT Requesting Physician: Dr. Singleton Attending Physician: Zeyad Singleton MD History of Present Illness 86-year-old patient admitted with abdominal discomfort. Diagnosed with small bowel obstruction. While in the emergency department elevated heart rates recorded. Telemetry reviewed revealing sinus rhythm and sinus tachycardia. Carries a history of PSVT in the outpatient setting. He is not treated with AV celso blocking agents due to presence of first-degree AV block and second-degree AV block Mobitz type I. Patient currently resting comfortably. Denies any chest pain, palpitations, or shortness of breath. Abdominal discomfort improved with placement of NG tube. Offers no other concerns/complaints at this time. Allergies Allergy/AdvReac Type Severity Reaction Status Date / Time Penicillins Allergy Mild RASH Verified 03/19/22 11:17 soy Allergy Mild SHAKY, Verified 03/19/22 11:17 CHILLS, BM thiamine (vitamin B1) Allergy Mild RASH Verified 03/19/22 11:17 Home Medications Medication Instructions Recorded Confirmed Type doxazosin 4 mg tablet (Cardura) 8 mg PO HS 05/25/21 03/22/22 History finasteride 5 mg tablet (Proscar) 5 mg PO QAM 05/25/21 03/22/22 History atorvastatin 40 mg tablet 40 mg PO QAM #30 tabs 05/26/21 03/22/22 Rx fluticasone propionate 50 2 spray intranasal QAM 02/20/22 03/22/22 History mcg/actuation nasal spray,suspension vit C 250 mg-vit E 90 mg-zinc 40 1 tab PO AMHS 02/20/22 03/22/22 History mg-copper 1 by-hgpsii-whbhiy capsule (PreserVision AREDS-2) aspirin 81 mg tablet,delayed 81 mg PO HS 03/09/22 03/22/22 History release clopidogrel 75 mg tablet 75 mg PO QAM #30 tabs 03/11/22 03/22/22 Rx pantoprazole 40 mg tablet,delayed 40 mg PO QAM 03/19/22 03/22/22 History release Patient History Medical History Anemia Barretts esophagus BPH (benign prostatic hyperplasia) CVA (cerebral vascular accident) May 2021--unknown cause---currently on plavix--follows with Dr. Austin Hearing deficit History of anesthesia reaction difficulty waking History of supraventricular tachycardia follows with [facility] HLD (hyperlipidemia) On anticoagulant therapy plavix daily Schatzki's ring Small bowel obstruction Surgical History History of appendectomy History of arthroscopy of right shoulder History of bilateral cataract extraction History of cholecystectomy History of colonoscopy History of esophagogastroduodenoscopy (EGD) History of laparotomy 2006-exploratory laparotomy/lysis of adhesions at [facility] History of resection of small bowel 2008. Dr. Carlson at [facility] History of tooth extraction Family History Family/Other Coronary heart disease Other No family history of adverse response to anesthesia Social History Smoking Status: Never smoker Second Hand Exposure: No; Hx Alcohol Use: No Hx Substance Use: No Preferred Language: Luxembourger Communication Ability: Effective Quality Assurance Auditor Required: No Beliefs That Will Affect Care: None marital status: Current Living Situation: Spouse How many Children do You have: 3 Other Information That Helps Us Care for You: No Feels Safe at Home: Yes Safety Concerns: Feels Safe At This Time Assistive Devices: None Review of Systems Review of Systems: All systems reviewed & are unremarkable except as noted in Subjective Physical Exam Constitutional: well nourished and + ill appearing; no acute distress Respiratory: no respiratory distress, no labored breathing and no retractions Auscultation: lungs clear to auscultation bilaterally; no crackles, no rales, no rhonchi and no wheezes Cardiovascular: Rate/Rhythm: regular rate and regular rhythm Heart Sounds: normal S1 and normal S2; no murmur Vessels: radial pulses present; no JVD Extremities: no edema Gastrointestinal (Abdomen): Inspection/Auscultation: abdomen normal to inspection and normal bowel sounds; abdomen not distended Percussion/Palpation: abdomen soft; abdomen nontender, no guarding and abdomen not rigid Neurologic: CN's II-XI intact bilaterally and moves all extremities; no focal motor deficits Results & Data ([facility]) Vital Signs (Past 12 Hours) Vital Signs Temp Pulse Pulse Resp BP Pulse Ox O2 Del Method 03/23/22 07:39 36.7 C 79 20 128/58 L 97 Room Air 03/23/22 07:16 77 03/23/22 03:50 36.7 C 85 18 121/67 96 Room Air 03/22/22 23:47 36.8 C 100 H 18 122/61 96 Room Air 03/22/22 22:17 98 H Diagnostic Findings 14 day Zio (rhythm strips personally reviewed today 03/23/2022) 06/05/2021: A Zio patch XT monitor was worn for 14 days ranging from 06/05/2021 until 06/19/2021 For screening purposes given history of cerebral vascular disease. Patient had a min HR of 31 bpm, max HR of 182 bpm, and avg HR of 80 bpm. Predominant underlying rhythm was Sinus Rhythm. First Degree AV Block was present. Bundle Branch Block/IVCD was present. 1 run of Ventricular Tachycardia occurred lasting 6 beats with a max rate of 176 bpm (avg 155 bpm). 22 Supraventricular Tachycardia runs occurred, the run with the fastest interval lasting 6 beats with a max rate of 182 bpm, the longest lasting 28.2 secs with an avg rate of 96 bpm. Some episodes of Supraventricular Tachycardia may be possible Atrial Tachycardia with variable block. 1 episode(s) of AV Block (3rd) occurred, lasting a total of 6 secs. Episode of AV Block may be Junctional Rhythm with AV Dissociation. Second Degree AV Block-Mobitz I (Wenckebach) was present. Isolated SVEs were rare (<1.0%), SVE Couplets were rare (<1.0%), and SVE Triplets were rare (<1.0%). Isolated VEs were rare (<1.0%, 3597), VE Couplets were rare (<1.0%, 44), and VE Triplets were rare (<1.0%, 1). Ventricular Bigeminy and Trigeminy were present. MD notification criteria for Complete Heart Block met - report posted prior to leaving voicemail per account request ([place]). There were 3 patient triggered events, 2 of which correlated with sinus rhythm with sensed supraventricular ectopy, and 1 patient triggered event correlated with sinus rhythm at 91 beats per minute. Although the preliminary interpretation raises concerns of a brief episode of complete heart block, 06/10/2021 8:08 a.m., alternatively, sinus rhythm with a very long first-degree AV block lasting 4 beats, but there does appear to be a P-wave associated with every QRS complex. The minimum heart rate was 30-40 beats per minute. No symptoms were reported. An episode of Mobitz type second-degree heart block ( Wenckebach block was observed on 06/07/2021 at 6:26 p.m. with a single dropped QRS complex. No symptoms were reported. Lexiscan nuclear stress test report 07/25/2021: Lexiscan nuclear cardiac stress test negative for ischemia. Small area of fixed perfusion defect of the inferior wall. worse on rest images - attenuation artifact Gated SPECT images reveals normal myocardial thickening and wall motion.The LV ejection fraction is calculated at 70%.
--- NOTE | 2022-03-23 10:35 | Electrocardiogram Report ---
Test Reason : Blood Pressure : / mmHG Vent. Rate : 087 BPM Atrial Rate : 087 BPM P-R Int : 180 ms QRS Dur : 132 ms QT Int : 422 ms P-R-T Axes : 044 -59 044 degrees QTc Int : 507 ms Normal sinus rhythm Right bundle branch block Left anterior fascicular block Bifascicular block Inferior infarct (cited on or before 25-MAY-2021) Abnormal ECG When compared with ECG of 22-MAR-2022 11:25, TN interval has decreased Criteria for Anterior infarct are no longer Present Questionable change in initial forces of Inferior leads Confirmed by Keaml Lew ([id number]) on 03/23/2022 10:34:55 AM Referred By: REFERRED SELF Confirmed By:Kemal Lew
[2022-03-23] MEDS: PANTOprazole 40 MG in SYRINGE 0 ML IV SCH (11:08)
--- NOTE | 2022-03-23 11:16 | Hospitalist Progress Note ---
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 -Consult GI, follows with Dr. Pozo as an outpatient, was scheduled to have follow-up EGD later this week, currently off aspirin and Plavix for such so we will continue to hold for now -Continue pantoprazole IV -Antiemetics -Further discussion regarding bowel regimen prior to discharge needs to be held,? 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 Worse because dehydrated with nausea, or if this is since CVA as it was a lacunar infarct,? Elevated heart rate? If secondary to Proscar? Checking orthostatics as above, monitor (5) HLD (hyperlipidemia): Plan: -Continue statin therapy (6) BPH (benign prostatic hyperplasia): Plan: -Continue finasteride, doxazosin DVT PPx: - teds, scds, subcu heparin CODE: Full code Dispo: From home, likely to remain in the hospital x 1-2 days Admission and Anticipated Discharge Date Admission Date: March 22, 2022 Subjective NG tube is in. States he is much more comfortable currently. Actively draining. Stomach is soft. Has not passed gas yet. Abdominal pain is resolved. Review of Systems Review of Systems: Constitutional: No fever, sweats or chills Eyes: No diplopia, no worsening or blurred vision ENT: normal hearing, no trouble swallowing Respiratory: No cough, sputum, dyspnea at rest or on exertion Cardiovascular: No chest pain, tightness or palpitations Abdomen: As per HPI Musculoskeletal: No joint pain, calf pain, swelling Neurologic: No weakness, numbness/tingling, or balance problems Psychiatric: No anxiety or depression Skin: No rash or itch Physical Exam Constitutional: WD/WN, vitals as above Respiratory: normal respiratory effort, lungs clear to auscultation Cardiovascular: Rate/Rhythm: regular rate Gastrointestinal (Abdomen): Inspection/Auscultation: abdomen normal to inspection Percussion/Palpation: abdomen soft; abdomen nontender, no guarding and abdomen not rigid Skin: no rashes, warm and dry Results & Data Results & Data ([facility]) Vital Signs (Past 12 Hours) Vital Signs Temp Pulse Pulse Resp BP Pulse Ox O2 Del Method 03/23/22 07:39 36.7 C 79 20 128/58 L 97 Room Air 03/23/22 07:16 77 03/23/22 03:50 36.7 C 85 18 121/67 96 Room Air 03/22/22 23:47 36.8 C 100 H 18 122/61 96 Room Air Laboratory Results Short CBC 03/22/22 03/23/22 Range/Units 10:50 06:29 WBC 8.39 5.44 (4.8-10.8) K/ul Hgb 13.4 L 11.0 L (14.0-18.0) g/dl Hct 40.4 32.9 L (40.1-51.0) % Plt Count 213 172 (130-400) K/uL BMP 03/22/22 03/23/22 10:50 06:29 Sodium 139 140 Potassium 4.6 3.9 Chloride 106 110 H Carbon Dioxide 22 24 BUN 24 H 24 H Creatinine 1.32 0.96 D Glucose 125 H 89 Calcium 9.1 7.5 L Liver Function 03/22/22 Range/Units 10:50 Total Bilirubin 1.4 H (0.2-1.0) mg/dl AST 32 (13-39) U/L ALT 36 (7-52) U/L Alkaline Phosphatase 76 (34-104) U/L Albumin 3.9 (3.4-5.0) gm/dl Urine 03/23/22 Range/Units 03:00 Urine Color Yellow Urine Appearance Clear (Clear) Urine pH 5.0 (4.5-7.5) Ur Specific [place] > 1.045 H (1.000-1.030) Urine Protein Negative (Negative) Urine Glucose (UA) Negative (Negative) Diagnostic Findings KUB X-Ray 03/23/22 07:00 XR KUB/Abdomen 1 view CLINICAL HISTORY: sbo TECHNIQUE: 1 view of the abdomen was obtained. Comparison: Comparison is made to abdomen radiograph 03/22/[address] abdomen pelvis 03/22/2022 FINDINGS: Stable appearance of enteric tube. Degenerative changes are seen in the visualized skeleton. Postsurgical changes of bowel resection are seen. Bowel loops are not well seen due to a paucity of small bowel gas. Small stool burden is seen. IMPRESSION: Small bowel loops are not well seen due to a paucity of small bowel gas. Radiographic evaluation of small bowel obstruction is limited. ACT 112: Negative or not required by law. Electronically signed by: Jeremy Velasco M.D. 03/23/2022 7:19 AM (1) Vomiting Nausea presence: with nausea Vomiting type: unspecified Qualified Code(s): R11.2 - Nausea with vomiting, unspecified
[2022-03-23] MEDS: MAGNESIUM SULFATE / D5W 1 GM/100 ML BAG IV SCH ×2 (11:59→13:41)
--- NOTE | 2022-03-23 13:15 | Surgery Progress Note ---
Date of Service March 23, 2022 Assessment & Plan (1) Small bowel obstruction: Plan: This is his third admission in a short period of time for small bowel obstruction. I would continue conservative management over the weekend. Surgery could be quite difficult with high risk of complications. I did tell him that if he does not progress over the weekend I would consider surgery next week. Continue with the NG tube and IV fluid. Currently asymptomatic regarding pain and nausea. Continue to hold his Plavix until we determine if surgical intervention will be required this admission. [facility] surgeons covering for the weekend. (2) CVA (cerebral vascular accident): Admission and Anticipated Discharge Date Admission Date: March 22, 2022 Subjective Patient seen with family at bedside. No major changes. He has no pain or nausea. However he has had no flatus or bowel function. Physical Exam Constitutional: WD/WN, vitals as above no acute distress and not ill appearing Eyes: PERRL, conjunctivae normal, anicteric sclerae EOM intact bilaterally ENMT: external ear and nose normal, oropharynx normal Ears: no hearing impairment Neck: trachea midline, no thyromegaly Respiratory: normal respiratory effort; no respiratory distress and does not use accessory muscles Cardiovascular: Rate/Rhythm: regular rate and regular rhythm Gastrointestinal (Abdomen): Soft. Nontender. NG tube in place. No bowel sounds. Skin: no rashes, warm and dry Psychiatric: Orientation: alert, oriented x 3 and cooperative Results & Data ([facility]) Vital Signs (Past 12 Hours) Vital Signs Temp Pulse Pulse Resp BP Pulse Ox O2 Del Method 03/23/22 11:16 36.7 C 70 20 130/65 97 Room Air 03/23/22 07:39 36.7 C 79 20 128/58 L 97 Room Air 03/23/22 07:16 77 03/23/22 03:50 36.7 C 85 18 121/67 96 Room Air PG Care Time/CCT Total # of Minutes Spent Total Time Spent with Patient: Total time spent is greater than 50% in coordination of care (as documented) at patient's floor/unit and/or counseling patient: Coding Level of Care Code 25933 Subseq Hosp Care Lvl 3 Diagnoses Small bowel obstruction K56.609 CVA (cerebral vascular accident) I63.9
[2022-03-23] MEDS: D5W AND 1/2NSS 1,000 ML IV SCH (23:09)
[2022-03-23] MEDS ORDERED: ARTIFICIAL TEARS OP PRN (23:38)
[2022-03-24 08:12] LABS: Basophils # (auto) 0.02 K/uL (0-0.2); Basophils % (auto) 0.4 %; Eosinophils % (auto) 3.8 %; Hematocrit (blood only) 33.2 % (40.1-51.0); Hemoglobin 10.9 g/dl (14.0-18.0); Immature Granulocytes # (auto) 0.02 K/uL (0.00-0.02); Immature Granulocytes % (auto) 0.4 %; Lymphocytes % (auto) 30.5 %; Mean Corpuscular Hgb Conc 32.8 g/dL (32.0-36.0); Mean Corpuscular Volume 88.3 fL (80.0-100.0); Mean Platelet Volume 12.6 fL (9.4-12.4); Monocytes # (auto) 0.64 K/uL (0.24-0.82); Monocytes % (auto) 12.2 %; Neutrophils # (auto) 2.76 K/uL (1.4-6.5); Neutrophils % (auto) 52.7 %; Platelet Count 174 K/uL (130-400); RDW Coefficient of Variation 13.9 % (11.5-14.5); RDW Standard Deviation 44.7 fL (36.4-46.3); Red Blood Count 3.76 M/uL (4.63-6.08); White Blood Count 5.24 K/ul (4.8-10.8)
[2022-03-24 08:55] LABS: BUN Creatinine Ratio 21.6 (10-20); Calcium 7.5 mg/dl (8.5-10.1); Creatinine Clr Calc Pharmacy 71.9 ml/min; Est GFR (African American) 98.2 ml/min; Est GFR (Non-African American) 84.7 ml/min; Magnesium 2.1 mg/dl (1.7-2.4); Phosphorus 2.1 mg/dl (2.5-4.9); Potassium 3.6 mmol/L (3.5-5.1)
[2022-03-24] MEDS: FLUTICASONE PROPIONATE NA SPR 16 GM BTL SCH (09:31)
[2022-03-24] MEDS: HEPARIN SOD 5,000 UNIT/0.5 ML VIAL SQ SCH ×2 (09:32→21:55)
[2022-03-24] MEDS: D5W AND 1/2NSS 1,000 ML IV SCH ×2 (09:34→18:13)
--- NOTE | 2022-03-24 11:08 | Surgery Progress Note ---
Date of Service March 24, 2022 Assessment & Plan (1) Small bowel obstruction: Plan: 86 yr old with recurrent episodes of small bowel obstruction. Again appears to be resolving but will plan on going slow. Will clamp ng tube and see if tolerates. if low residuals, will remove ng tube. Admission and Anticipated Discharge Date Admission Date: March 22, 2022 Subjective Passing flatus and had two small bowel movements. Overall feels better. No pain or nausea. NG with 950 yesterday. Review of Systems Review of Systems: All systems reviewed & are unremarkable except as noted in HPI & below Physical Exam Constitutional: WD/WN, vitals as above Respiratory: normal respiratory effort, lungs clear to auscultation Cardiovascular: RRR, no murmur, no edema Gastrointestinal (Abdomen): Inspection/Auscultation: abdomen normal to inspection and normal bowel sounds; abdomen not distended Percussion/Palpation: abdomen soft; abdomen nontender and no guarding Musculoskeletal: Extremities: extremities normal to inspection Neurologic: awake; no focal motor deficits Psychiatric: A+Ox3, euthymic affect Results & Data ([facility]) Vital Signs (Past 12 Hours) Vital Signs Temp Pulse Pulse Resp BP BP Pulse Ox 03/24/22 08:37 37.1 C 63 18 128/59 L 98 03/24/22 08:19 73 03/24/22 08:00 03/24/22 03:40 36.9 C 73 18 127/60 96 03/23/22 23:10 36.6 C 69 18 143/63 H 97 Pulse Ox O2 Del Method O2 Del Method 03/24/22 08:37 Room Air 03/24/22 08:19 03/24/22 08:00 95 Room Air 03/24/22 03:40 Room Air 03/23/22 23:10 Room Air Laboratory Results Abnormal lab results 03/24/22 03/24/22 03/24/22 Range/Units 06:41 07:18 07:18 RBC 3.76 L (4.63-6.08) M/uL Hgb 10.9 L (14.0-18.0) g/dl Hct 33.2 L (40.1-51.0) % MPV 12.6 H (9.4-12.4) fL Chloride 109 H (98-107) mmol/L BUN/Creatinine Ratio 21.6 H (10-20) Glucose 104 H (70-99(Fasting)) mg/dl POC Glucose 104 H (70-99) mg/dl Calcium 7.5 L (8.5-10.1) mg/dl Phosphorus 2.1 L (2.5-4.9) mg/dl
--- NOTE | 2022-03-24 11:23 | Hospitalist Progress Note ---
Date of Service March 24, 2022 Assessment & Plan (1) Small bowel obstruction: Plan: Much improved likely resolving. Follow surgery for removal of NG tubemonitoring of residuals while NG tube is clamped. 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 Worse because dehydrated with nausea, or if this is since CVA as it was a lacunar infarct,? Elevated heart rate? If secondary to Proscar? Checking orthostatics as above, monitor (5) HLD (hyperlipidemia): Plan: -Continue statin therapy (6) BPH (benign prostatic hyperplasia): Plan: -Continue finasteride, doxazosin DVT PPx: - teds, scds, subcu heparin CODE: Full code Dispo: From home, likely to remain in the hospital x 1-2 days Admission and Anticipated Discharge Date Admission Date: March 22, 2022 Subjective States he feels much better today. He is passing gas as well as had 2 small bowel movements. Around 1000 mL collected via the NG tube. Review of Systems Review of Systems: Constitutional: No fever, sweats or chills Eyes: No diplopia, no worsening or blurred vision ENT: normal hearing, no trouble swallowing Respiratory: No cough, sputum, dyspnea at rest or on exertion Cardiovascular: No chest pain, tightness or palpitations Abdomen: As per HPI Musculoskeletal: No joint pain, calf pain, swelling Neurologic: No weakness, numbness/tingling, or balance problems Psychiatric: No anxiety or depression Skin: No rash or itch Physical Exam Constitutional: WD/WN, vitals as above Respiratory: normal respiratory effort, lungs clear to auscultation Cardiovascular: Rate/Rhythm: regular rate Gastrointestinal (Abdomen): Inspection/Auscultation: abdomen normal to inspection Percussion/Palpation: abdomen soft; abdomen nontender, no guarding and abdomen not rigid Skin: no rashes, warm and dry Results & Data Results & Data ([place]) Vital Signs (Past 12 Hours) Vital Signs Temp Pulse Pulse Resp BP BP Pulse Ox 03/24/22 08:37 37.1 C 63 18 128/59 L 98 03/24/22 08:19 73 03/24/22 08:00 03/24/22 03:40 36.9 C 73 18 127/60 96 Pulse Ox O2 Del Method O2 Del Method 03/24/22 08:37 Room Air 03/24/22 08:19 03/24/22 08:00 95 Room Air 03/24/22 03:40 Room Air Laboratory Results Laboratory Results WBC 5.24 K/ul (4.8-10.8) 03/24/22 07:18 RBC 3.76 M/uL (4.63-6.08) L 03/24/22 07:18 Hgb 10.9 g/dl (14.0-18.0) L 03/24/22 07:18 Hct 33.2 % (40.1-51.0) L 03/24/22 07:18 MCV 88.3 fL (80.0-100.0) 03/24/22 07:18 MCH 29.0 pg (25.0-34.0) 03/24/22 07:18 MCHC 32.8 g/dL (32.0-36.0) 03/24/22 07:18 RDW Std Deviation 44.7 fL (36.4-46.3) 03/24/22 07:18 RDW Coeff of [place] 13.9 % (11.5-14.5) 03/24/22 07:18 Plt Count 174 K/uL (130-400) 03/24/22 07:18 MPV 12.6 fL (9.4-12.4) H 03/24/22 07:18 Immature Gran % (Auto) 0.4 % 03/24/22 07:18 Neut % (Auto) 52.7 % 03/24/22 07:18 Lymph % (Auto) 30.5 % 03/24/22 07:18 [place] % (Auto) 12.2 % 03/24/22 07:18 Eos % (Auto) 3.8 % 03/24/22 07:18 Baso % (Auto) 0.4 % 03/24/22 07:18 Neut # (Auto) 2.76 K/uL (1.4-6.5) 03/24/22 07:18 Lymph # (Auto) 1.60 K/uL (1.2-3.4) 03/24/22 07:18 [place] # (Auto) 0.64 K/uL (0.24-0.82) 03/24/22 07:18 Eos # (Auto) 0.20 K/uL (0-0.50) 03/24/22 07:18 Baso # (Auto) 0.02 K/uL (0-0.2) 03/24/22 07:18 Immature Gran # (Auto) 0.02 K/uL (0.00-0.02) 03/24/22 07:18 PT 11.4 Seconds (9.0-12.0) 03/22/22 10:50 INR 1.1 (0.9-1.1) 03/22/22 10:50 APTT 23.1 Seconds (21.0-31.0) 03/22/22 10:50 PTT Ratio 0.8 03/22/22 10:50 Sodium 140 mmol/L (136-145) 03/24/22 07:18 Potassium 3.6 mmol/L (3.5-5.1) 03/24/22 07:18 Chloride 109 mmol/L (98-107) H 03/24/22 07:18 Carbon Dioxide 24 mmol/L (21-32) 03/24/22 07:18 Anion Gap 7 (3-11) 03/24/22 07:18 BUN 16 mg/dl (6-23) 03/24/22 07:18 Creatinine 0.74 mg/dl (0.6-1.4) 03/24/22 07:18 Est Cr Clr Drug Dosing 71.9 ml/min 03/24/22 07:18 Est GFR ( Amer) 98.2 ml/min 03/24/22 07:18 Est GFR (Non-Af Amer) 84.7 ml/min 03/24/22 07:18 BUN/Creatinine Ratio 21.6 (10-20) H 03/24/22 07:18 Glucose 104 mg/dl (70-99(Fasting)) H 03/24/22 07:18 POC Glucose 104 mg/dl (70-99) H 03/24/22 06:41 Calcium 7.5 mg/dl (8.5-10.1) L 03/24/22 07:18 Phosphorus 2.1 mg/dl (2.5-4.9) L 03/24/22 07:18 Magnesium 2.1 mg/dl (1.7-2.4) 03/24/22 07:18 Total Bilirubin 1.4 mg/dl (0.2-1.0) H 03/22/22 10:50 AST 32 U/L (13-39) 03/22/22 10:50 ALT 36 U/L (7-52) 03/22/22 10:50 Alkaline Phosphatase 76 U/L (34-104) 03/22/22 10:50 Troponin I High Sens 7.1 pg/ml (0-20) 03/22/22 10:50 Total Protein 6.7 gm/dl (6.0-8.3) 03/22/22 10:50 Albumin 3.9 gm/dl (3.4-5.0) 03/22/22 10:50 Globulin 2.8 gm/dl (2.5-4.0) 03/22/22 10:50 Albumin/Globulin Ratio 1.4 (0.9-2) 03/22/22 10:50 Lipase 15 U/L (11-82) 03/22/22 10:50 TSH 1.031 uIu/ml (0.300-4.500) 03/22/22 10:50 Urine Color Yellow 03/23/22 03:00 Urine Appearance Clear (Clear) 03/23/22 03:00 Urine pH 5.0 (4.5-7.5) 03/23/22 03:00 Ur Specific [place] > 1.045 (1.000-1.030) H 03/23/22 03:00 Urine Protein Negative (Negative) 03/23/22 03:00 Urine Glucose (UA) Negative (Negative) 03/23/22 03:00 Urine Ketones 2+ (Negative) H 03/23/22 03:00 Urine Blood Negative (Negative) 03/23/22 03:00 Urine Nitrite Negative (Negative) 03/23/22 03:00 Urine Bilirubin Negative (Negative) 03/23/22 03:00 Urine Urobilinogen Negative (Negative) 03/23/22 03:00 Ur Leukocyte Esterase Negative (Negative) 03/23/22 03:00 SARS-CoV-2, RNA, NAAT NEGATIVE (NEGATIVE) 03/22/22 15:23 Impressions Chest X-Ray 03/22/22 11:12 XR chest 1V portable HISTORY: 86 years-old Male upper pain weakness COMPARISON: Chest radiograph 02/20/2022 TECHNIQUE: Portable AP view of the chest FINDINGS: Cardiomediastinal and hilar silhouettes are within normal limits. No pneumothorax, pleural effusion, airspace consolidation or overt pulmonary edema. Degenerative changes of the shoulders and spine. IMPRESSION: No acute process. ACT 112: Negative or not required by law. The above report was generated using voice recognition software. It may contain grammatical, syntax or spelling errors. Electronically signed by: Bruce Gudino M.D. 03/22/2022 11:43 AM Abdomen/Pelvis CT 03/22/22 11:14 CT abd pelvis oral and IV con CLINICAL HISTORY: vomiting TECHNIQUE: Helical axial images of the abdomen and pelvis were obtained and displayed. Automated dose lowering techniques and/or adjustment according to patient size were utilized for this exam. This exam was performed with intravenous contrast. COMPARISON: Comparison is made to CT abdomen pelvis 03/09/2022 FINDINGS: Lower chest: Bibasilar atelectasis versus scarring is seen. Liver: Unremarkable. No focal lesions are seen. Gallbladder and biliary tree: Patient is status post cholecystectomy. No intra- or extrahepatic biliary ductal dilation. Pancreas: Unremarkable, no focal lesions. Spleen: Unremarkable. Adrenals: Unremarkable. Kidneys and ureters: Parapelvic cysts are seen bilaterally. Bladder: Diffuse homogeneous wall thickening is seen. Reproductive organs: Prostatomegaly is seen. Bowel: Multifocal small bowel dilation is seen, more extensive than in the prior exam and most pronounced in the left upper quadrant measuring up to 41 mm, unchanged from prior exam. Postsurgical changes of bowel resection are seen. Surgical clips are seen in the distal esophagus and there is a small hiatal hernia. There is a short segment of under distended distal small bowel which may represent a transition point. Lymph nodes Retroperitoneal: Subcentimeter lymph nodes are noted. Pelvic: Unremarkable. Mesenteric: Subcentimeter lymph nodes are noted. Peritoneum: No ascites or pneumoperitoneum is seen. Vessels: Atherosclerotic calcifications are seen. Abdominal wall: Unremarkable. Bones: Degenerative changes in the visualized spine. IMPRESSION: 1. Redemonstration of multiple distended and fluid-filled loops of small bowel measuring up to 41 mm in diameter, dilation appears somewhat more extensive than in prior exam, particularly in the right lower quadrant. No evidence of ischemia. The colon is decompressed. Findings are suggestive of partial small bowel obstruction versus ileus. 2. Prostatomegaly and bowel wall thickening likely due to chronic obstruction. ACT 112: Negative or not required by law. Electronically signed by: Jeremy Velasco M.D. 03/22/2022 1:[address] 03/22/22 11:14 CT head/brain wo con CLINICAL HISTORY: vertigo Technique: Contiguous axial CT images of the head were acquired from the base of the skull to the vertex without intravenous contrast administration. Images were viewed in brain, subdural and bone windows. Automated dose lowering techniques and/or adjustment according to patient size were utilized for this exam. Comparison: Comparison is made to CTA head 03/09/2022 and MRI brain 522 Findings: The ventricles, basal cisterns, and cerebral sulci are normal. There is no acute intracranial hemorrhage or evidence of acute territorial infarction. Neither mass effect, shift of the midline structures, nor abnormal extra-axial fluid collections are shown. Imaged portions of the paranasal sinuses and mastoid air cells are clear. The orbits appear normal. There are no acute fractures of the calvaria or scalp swelling. Impression: No acute intracranial hemorrhage, no evidence of acute territorial infarction or other acute intracranial disease process. ACT 112: Negative or not required by law. Electronically signed by: Jeremy Velasco M.D. 03/22/2022 1:33 PM KUB X-Ray 03/23/22 07:00 XR KUB/Abdomen 1 view CLINICAL HISTORY: sbo TECHNIQUE: 1 view of the abdomen was obtained. Comparison: Comparison is made to abdomen radiograph 03/22/[address] abdomen pelvis 03/22/2022 FINDINGS: Stable appearance of enteric tube. Degenerative changes are seen in the visualized skeleton. Postsurgical changes of bowel resection are seen. Bowel loops are not well seen due to a paucity of small bowel gas. Small stool burden is seen. IMPRESSION: Small bowel loops are not well seen due to a paucity of small bowel gas. Radiographic evaluation of small bowel obstruction is limited. ACT 112: Negative or not required by law. Electronically signed by: Jeremy Velasco M.D. 03/23/2022 7:19 AM (1) Vomiting Nausea presence: with nausea Vomiting type: unspecified Qualified Code(s): R11.2 - Nausea with vomiting, unspecified
[2022-03-24] MEDS: PANTOprazole 40 MG in SYRINGE 0 ML IV SCH (11:54)
[2022-03-25] MEDS: D5W AND 1/2NSS 1,000 ML IV SCH ×2 (04:15→14:23)
[2022-03-25 06:16] LABS: Eosinophils # (auto) 0.17 K/uL (0-0.50); Eosinophils % (auto) 2.9 %; Hematocrit (blood only) 33.3 % (40.1-51.0); Immature Granulocytes # (auto) 0.01 K/uL (0.00-0.02); Immature Granulocytes % (auto) 0.2 %; Lymphocytes # (auto) 1.61 K/uL (1.2-3.4); Lymphocytes % (auto) 27.9 %; Mean Corpuscular Hemoglobin 29.2 pg (25.0-34.0); Mean Corpuscular Volume 88.3 fL (80.0-100.0); Mean Platelet Volume 12.3 fL (9.4-12.4); Monocytes # (auto) 0.69 K/uL (0.24-0.82); Neutrophils # (auto) 3.29 K/uL (1.4-6.5); Platelet Count 165 K/uL (130-400); RDW Coefficient of Variation 13.2 % (11.5-14.5); RDW Standard Deviation 43.1 fL (36.4-46.3); Red Blood Count 3.77 M/uL (4.63-6.08); White Blood Count 5.77 K/ul (4.8-10.8)
[2022-03-25 06:43] LABS: Calcium 7.7 mg/dl (8.5-10.1); Creatinine Clr Calc Pharmacy 68.2 ml/min; Est GFR (African American) 96.1 ml/min; Est GFR (Non-African American) 82.9 ml/min; Phosphorus 2.3 mg/dl (2.5-4.9); Potassium 3.5 mmol/L (3.5-5.1)
[2022-03-25] MEDS: HEPARIN SOD 5,000 UNIT/0.5 ML VIAL SQ SCH ×2 (07:27→21:26)
[2022-03-25] MEDS: FLUTICASONE PROPIONATE NA SPR 16 GM BTL SCH (07:29)
--- NOTE | 2022-03-25 09:30 | Surgery Progress Note ---
Date of Service March 25, 2022 Assessment & Plan (1) Small bowel obstruction: Plan: 86 yr old with recurrent episodes of small bowel obstruction. He has tolerated ng clamping but abdomen is slightly more distended today and he is not passing much flatus. Also concerned about removal of ng and possible recurrent obstruction. Discussed options with pt. Will plan to keep ng until after small bowel follow through tomorrow. Admission and Anticipated Discharge Date Admission Date: March 22, 2022 Subjective Overall feels better with no further pain. However, he does not feel as though he has "opened up" the same as with his previous episodes. Concerned as he has only passed a small amount of flatus and only had one hard bowel movement. Worried about removal of ng and need for replacement. No nausea with ng clamped. Physical Exam Constitutional: WD/WN, vitals as above Respiratory: normal respiratory effort, lungs clear to auscultation Cardiovascular: RRR, no murmur, no edema Gastrointestinal (Abdomen): Inspection/Auscultation: abdomen normal to inspection, + abdomen distended (mild) and + hypoactive bowel sounds Percus german/Palpation: abdomen soft; abdomen nontender and no guarding Musculoskeletal: Extremities: extremities normal to inspection Neurologic: awake; no focal motor deficits Psychiatric: A+Ox3, euthymic affect Results & Data ([facility]) Vital Signs (Past 12 Hours) Vital Signs Temp Pulse Pulse Pulse Resp BP Pulse Ox 03/25/22 07:56 03/25/22 07:48 36.6 C 62 17 138/62 96 03/25/22 07:14 83 03/25/22 02:59 36.6 C 78 18 110/55 L 96 03/24/22 23:24 36.7 C 61 18 145/69 H 95 03/24/22 23:17 58 L Pulse Ox O2 Del Method O2 Del Method 03/25/22 07:56 96 Room Air 03/25/22 07:48 Room Air 03/25/22 07:14 03/25/22 02:59 Room Air 03/24/22 23:24 Room Air 03/24/22 23:17
[2022-03-25] MEDS: PANTOprazole 40 MG in SYRINGE 0 ML IV SCH (12:21)
--- NOTE | 2022-03-25 16:41 | Hospitalist Progress Note ---
Date of Service March 25, 2022 Assessment & Plan (1) Small bowel obstruction: Plan: Much improved likely resolving. Surgery team managing- currently NG tube clamped, plan for small bowel follow through tomorrow. 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 Redemonstration of multiple distended and fluid-filled loops of small bowel measuring up to 41 mm in diameter, dilation appears somewhat more extensive than in prior exam, particularly in the right lower quadrant. No evidence of ischemia. The colon is decompressed. Findings are suggestive of partial small bowel obstruction versus ileus. 2. Prostatomegaly and bowel wall thickening likely due to chronic obstruction (2) Vomiting: Plan: resolved. antiemetic prn. -Continue pantoprazole IV (3) SVT (supraventricular tachycardia): Plan: - Resolved. 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 Plan for small bowel follow through tomorrow Admission and Anticipated Discharge Date Admission Date: March 22, 2022 Subjective Feels fine. Has some throat irritation due to NG tube. Had small BM this morning, not passing that much gas. Denies any abd pain. No nausea or vomiting since clamping NG tube. Physical Exam Physical Exam: General: Sitting comfortably in bed, not in distress, on room air NG tube clamped HEENT: EOMI, HALLIE, MMM Chest: Clear breath sounds bilaterally, no wheezes or crackles CVS: Regular rate and rhythm, normal heart sounds, no murmur Abdomen: Soft, non tender, distended, bowel sounds hypoactive Neuro: Awake, alert, oriented, conversing well, non focal Extremities: No edema Results & Data Results & Data ([facility]) Vital Signs (Past 12 Hours) Vital Signs Temp Pulse Pulse Resp BP BP Pulse Ox 08/21/22 16:24 36.8 C 61 18 138/68 96 03/25/22 15:00 59 L 03/25/22 12:30 36.5 C 71 18 140/74 97 03/25/22 07:56 03/25/22 07:48 36.6 C 62 17 138/62 96 03/25/22 07:14 83 Pulse Ox O2 Del Method O2 Del Method 03/25/22 16:24 Room Air 03/25/22 15:00 03/25/22 12:30 Room Air 03/25/22 07:56 96 Room Air 03/25/22 07:48 Room Air 03/25/22 07:14 Laboratory Results Short CBC 03/25/22 Range/Units 05:35 WBC 5.77 (4.8-10.8) K/ul Hgb 11.0 L (14.0-18.0) g/dl Hct 33.3 L (40.1-51.0) % Plt Count 165 (130-400) K/uL BMP 03/25/22 05:35 Sodium 140 Potassium 3.5 Chloride 110 H Carbon Dioxide 26 BUN 7 Creatinine 0.78 Glucose 120 H Calcium 7.7 L Medications Administered Current Inpatient Medications Artificial Tears (Artificial Tears) 2 drops OP BID PRN PRN Reason: dry eyes Stop: 04/22/22 23:37 Fluticasone Propionate (Fluticasone Propionate Na Spr 16 Gm Btl) 2 sprays NA QAM [facility] Stop: 04/22/22 08:59 Last Admin: 03/25/22 07:29 Dose: 2 sprays Heparin Sodium (Porcine) (Heparin Sod 5,000 Unit/0.5 Ml Vial) 5,000 units SQ Q12 [facility] Stop: 04/21/22 20:59 Last Admin: 03/25/22 07:27 Dose: 5,000 units Pantoprazole Sodium 40 mg/ (Syringe) 10 mls @ 5 mls/min IV DAILY@1100 [facility] Stop: 04/22/22 10:59 Last Admin: 03/25/22 12:21 Dose: 5 mls/min Dextrose/Sodium Chloride (D5w And 1/2nss) 1,000 mls @ 100 mls/hr IV .Q10H [facility] Stop: 04/22/22 22:59 Last Admin: 03/25/22 14:23 Dose: 100 mls/hr Meclizine HCl (Meclizine Hcl 25 Mg Tab) 25 mg PO BID PRN PRN Reason: dizziness Stop: 04/21/22 18:41 Ondansetron HCl (Ondansetron Inj 2 Mg/Ml 2 Ml Vial) 4 mg IV Q4H PRN PRN Reason: Nausea And Vomiting Stop: 04/21/22 18:41 (1) Vomiting Nausea presence: with nausea Vomiting type: unspecified Qualified Code(s): R11.2 - Nausea with vomiting, unspecified
[2022-03-26] MEDS: D5W AND 1/2NSS 1,000 ML IV SCH ×3 (00:19→20:23)
[2022-03-26 07:04] LABS: Hematocrit (blood only) 33.7 % (40.1-51.0); Hemoglobin 10.9 g/dl (14.0-18.0); Mean Corpuscular Hgb Conc 32.3 g/dL (32.0-36.0); Mean Corpuscular Volume 89.6 fL (80.0-100.0); Platelet Count 168 K/uL (130-400); RDW Coefficient of Variation 13.3 % (11.5-14.5); RDW Standard Deviation 43.9 fL (36.4-46.3); Red Blood Count 3.76 M/uL (4.63-6.08); White Blood Count 5.28 K/ul (4.8-10.8)
[2022-03-26 07:25] LABS: BUN Creatinine Ratio 4.9 (10-20); Calcium 7.8 mg/dl (8.5-10.1); Creatinine Clr Calc Pharmacy 64.9 ml/min; Est GFR (African American) 94.1 ml/min; Est GFR (Non-African American) 81.2 ml/min; Magnesium 1.9 mg/dl (1.7-2.4); Phosphorus 2.5 mg/dl (2.5-4.9); Potassium 3.4 mmol/L (3.5-5.1)
[2022-03-26] MEDS: FLUTICASONE PROPIONATE NA SPR 16 GM BTL SCH (07:25)
[2022-03-26] MEDS: HEPARIN SOD 5,000 UNIT/0.5 ML VIAL SQ SCH ×2 (07:25→20:23)
--- NOTE | 2022-03-26 08:45 | Surgery Progress Note ---
Date of Service March 26, 2022 Assessment & Plan (1) Small bowel obstruction: Plan: Clinically improving. Small bowel follow-through ordered for today. We will make further recommendations after results of the small bowel follow-through. (2) CVA (cerebral vascular accident): Admission and Anticipated Discharge Date Admission Date: March 22, 2022 Subjective Patient seen. Feeling okay. Passing some flatus this morning. Tube has been clamped for over a day. No nausea no abdominal pain Physical Exam Constitutional: WD/WN, vitals as above no acute distress and not ill appearing Eyes: PERRL, conjunctivae normal, anicteric sclerae EOM intact bilaterally ENMT: external ear and nose normal, oropharynx normal Ears: no hearing impairment Neck: trachea midline, no thyromegaly Respiratory: normal respiratory effort; no respiratory distress and does not use accessory muscles Cardiovascular: Rate/Rhythm: regular rate and regular rhythm Gastrointestinal (Abdomen): Soft. Nontender nondistended Skin: no rashes, warm and dry Psychiatric: Orientation: alert, oriented x 3 and cooperative Results & Data ([facility]) Vital Signs (Past 12 Hours) Vital Signs Temp Pulse Resp BP Pulse Ox O2 Del Method 03/26/22 07:59 36.9 C 67 18 126/59 L 96 Room Air 03/26/22 02:23 36.9 C 67 20 121/65 97 Room Air 03/25/22 22:12 36.8 C 75 18 137/62 98 Room Air PG Care Time/CCT Total # of Minutes Spent Total Time Spent with Patient: Total time spent is greater than 50% in coordination of care (as documented) at patient's floor/unit and/or counseling patient: Coding Level of Care Code 63858 Subseq Hosp Care Lvl 3 Diagnoses Small bowel obstruction K56.609 CVA (cerebral vascular accident) I63.9
[2022-03-26] MEDS: PANTOprazole 40 MG in SYRINGE 0 ML IV SCH (11:25)
--- NOTE | 2022-03-26 11:43 | Fluoroscopy Report ---
SMALL BOWEL FOLLOW-THROUGH CLINICAL HISTORY: Small bowel obstruction. COMPARISON STUDY: Abdominal CT dated 03/22/2022. TECHNIQUE: An abdominal test technician radiograph was performed. Approximately 600 cc of a mixture of Optiray 320 and water was administered through the enteric tube and a small bowel follow-through was performe d. 2 overhead radiographs were obtained at 0 minutes and 20 minutes. No spot compression imaging was performed. FINDINGS: The abdominal test technician radiograph shows gaseous distention of small bowel loops in the left upper quadra nt. There is no radiographic evidence of high-grade obstruction, as gas and stool are seen in the col on. No evidence of intraperitoneal free air is seen. An enteric tube is in place. Cholecystectomy cli ps are noted in the right upper quadrant. There is a 4 mm nonobstructing left renal calculus. Phlebol iths are seen in the pelvis On the small bowel follow-through, there is rapid transit time with contrast identified in the colon at 20 minutes. The duodenum is normal in configuration. Mildly distended small bowel loops are again seen in the left upper quadrant. There is no obstruction. The small bowel mucosal pattern is normal. There is no evidence of stricture or mass. IMPRESSION: 1. There is no evidence of bowel obstruction. Enteric contrast reaches the colon at 20 minutes. 2. Mildly distended loops of small bowel are again seen in the left upper quadrant. 3. Left-sided nephrolithiasis. ACT 112: Negative or not required by law. Electronically signed by: Harsh Smalls M.D. 03/26/2022 11:40 AM
--- NOTE | 2022-03-26 17:00 | Hospitalist Progress Note ---
Date of Service March 26, 2022 Assessment & Plan (1) Small bowel obstruction: Plan: Resolved. s/p NG tube which is now removed and now started on clears per surgery team. 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 Redemonstration of multiple distended and fluid-filled loops of small bowel measuring up to 41 mm in diameter, dilation appears somewhat more extensive than in prior exam, particularly in the right lower quadrant. No evidence of ischemia. The colon is decompressed. Findings are suggestive of partial small bowel obstruction versus ileus. 2. Prostatomegaly and bowel wall thickening likely due to chronic obstruction Small bowel follow through 03/26 1. There is no evidence of bowel obstruction. Enteric contrast reaches the colon at 20 minutes. 2. Mildly distended loops of small bowel are again seen in the left upper quadrant. 3. Left-sided nephrolithiasis. (2) Vomiting: Plan: resolved. antiemetic prn. (3) SVT (supraventricular tachycardia): Plan: - Resolved. 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 Anticipate discharge tomorrow if tolerating diet without issues. Admission and Anticipated Discharge Date Admission Date: March 22, 2022 Subjective Feels fine. His small bowel follow through was normal. He had BM afterwards. NG tube is out and now eating clears. No N/V/abd pain Physical Exam Physical Exam: General: Sitting comfortably in bed, not in distress, on room air HEENT: EOMI, HALLIE, MMM Chest: Clear breath sounds bilaterally, no wheezes or crackles CVS: Regular rate and rhythm, normal heart sounds, no murmur Abdomen: Soft, non tender, not distended, bowel sounds normal Neuro: Awake, alert, oriented, conversing well, non focal Extremities: No edema Results & Data Results & Data ([facility]) Vital Signs (Past 12 Hours) Vital Signs Temp Pulse Resp BP Pulse Ox O2 Del Method 03/26/22 15:29 36.9 C 66 18 136/68 97 Room Air 03/26/22 10:51 36.7 C 69 18 143/68 H 97 Room Air 03/26/22 07:59 36.9 C 67 18 126/59 L 96 Room Air Laboratory Results Short CBC 03/26/22 Range/Units 06:27 WBC 5.28 (4.8-10.8) K/ul Hgb 10.9 L (14.0-18.0) g/dl Hct 33.7 L (40.1-51.0) % Plt Count 168 (130-400) K/uL BMP 03/26/22 06:27 Sodium 141 Potassium 3.4 L Chloride 110 H Carbon Dioxide 27 BUN 4 L Creatinine 0.82 Glucose 112 H Calcium 7.8 L Diagnostic Findings Small Bowel X-Ray 03/26/22 10:00 SMALL BOWEL FOLLOW-THROUGH CLINICAL HISTORY: Small bowel obstruction. COMPARISON STUDY: Abdominal CT dated 03/22/2022. TECHNIQUE: An abdominal auto inspector radiograph was performed. Approximately 600 cc of a mixture of Optiray 320 and water was administered through the enteric tube and a small bowel follow-through was performed. 2 overhead radiographs were obtained at 0 minutes and 20 minutes. No spot compression imaging was performed. FINDINGS: The abdominal auto inspector radiograph shows gaseous distention of small bowel loops in the left upper quadrant. There is no radiographic evidence of high-grade obstruction, as gas and stool are seen in the colon. No evidence of intraperitoneal free air is seen. An enteric tube is in place. Cholecystectomy c lips are noted in the right upper quadrant. There is a 4 mm nonobstructing left renal calculus. Phleboliths are seen in the pelvis On the small bowel follow-through, there is rapid transit time with contrast identified in the colon at 20 minutes. The duodenum is normal in configuration. Mildly distended small bowel loops are again seen in the left upper quadrant. There is no obstruction. The small bowel mucosal pattern is normal. There is no evidence of stricture or mass. IMPRESSION: 1. There is no evidence of bowel obstruction. Enteric contrast reaches the colon at 20 minutes. 2. Mildly distended loops of small bowel are again seen in the left upper quadrant. 3. Left-sided nephrolithiasis. ACT 112: Negative or not required by law. Electronically signed by: Harsh Smalls M.D. 03/26/2022 11:40 AM Medications Administered Current Inpatient Medications Artificial Tears (Artificial Tears) 2 drops OP BID PRN PRN Reason: dry eyes Stop: 04/22/22 23:37 Fluticasone Propionate (Fluticasone Propionate Na Spr 16 Gm Btl) 2 sprays NA QAM [facility] Stop: 04/22/22 08:59 Last Admin: 03/26/22 07:25 Dose: 2 sprays Heparin Sodium (Porcine) (Heparin Sod 5,000 Unit/0.5 Ml Vial) 5,000 units SQ Q12 [facility] Stop: 04/21/22 20:59 Last Admin: 03/26/22 07:25 Dose: 5,000 units Pantoprazole Sodium 40 mg/ (Syringe) 10 mls @ 5 mls/min IV DAILY@1100 [facility] Stop: 04/22/22 10:59 Last Admin: 03/26/22 11:25 Dose: 5 mls/min Dextrose/Sodium Chloride (D5w And 1/2nss) 1,000 mls @ 100 mls/hr IV .Q10H [facility] Stop: 04/22/22 22:59 Last Admin: 03/26/22 11:25 Dose: 100 mls/hr Meclizine HCl (Meclizine Hcl 25 Mg Tab) 25 mg PO BID PRN PRN Reason: dizziness Stop: 04/21/22 18:41 Ondansetron HCl (Ondansetron Inj 2 Mg/Ml 2 Ml Vial) 4 mg IV Q4H PRN PRN Reason: Nausea And Vomiting Stop: 04/21/22 18:41 (1) Vomiting Nausea presence: with nausea Vomiting type: unspecified Qualified Code(s): R11.2 - Nausea with vomiting, unspecified
[2022-03-27] MEDS: D5W AND 1/2NSS 1,000 ML IV SCH (05:35)
[2022-03-27 07:08] LABS: BUN Creatinine Ratio 5.1 (10-20); Calcium 7.9 mg/dl (8.5-10.1); Creatinine Clr Calc Pharmacy 67.3 ml/min; Est GFR (African American) 95.6 ml/min; Est GFR (Non-African American) 82.5 ml/min; Magnesium 1.8 mg/dl (1.7-2.4); Potassium 3.2 mmol/L (3.5-5.1)
[2022-03-27] MEDS: FLUTICASONE PROPIONATE NA SPR 16 GM BTL SCH (08:05)
[2022-03-27] MEDS: HEPARIN SOD 5,000 UNIT/0.5 ML VIAL SQ SCH (08:06)
[2022-03-27] MEDS ORDERED: POTASSIUM CHLORIDE CRTAB 20 MEQ TABCR PO SCH (09:00)
--- NOTE | 2022-03-27 10:02 | Surgery Progress Note ---
Date of Service March 27, 2022 Assessment & Plan (1) Small bowel obstruction: Plan: Clinically and radiographically resolved. He is tolerating clear liquids. We will advance him to full liquids. He would really like to be discharged later today. Could be discharged later today or tomorrow morning. I will defer to primary service (2) History of CVA (cerebrovascular accident): Admission and Anticipated Discharge Date Admission Date: March 22, 2022 Subjective Patient seen. Feeling well. Tolerating clear liquid diet. Physical Exam Physical Exam: Alert and oriented no acute distress Abdomen is soft nontender nondistended Results & Data ([facility]) Vital Signs (Past 12 Hours) Vital Signs Temp Pulse Pulse Resp BP BP Pulse Ox 03/27/22 08:46 36.8 C 62 16 134/71 97 03/27/22 04:06 36.7 C 63 18 112/60 95 03/26/22 23:51 36.6 C 60 18 132/70 98 03/26/22 23:25 57 L O2 Del Method 03/27/22 08:46 Room Air 03/27/22 04:06 Room Air 03/26/22 23:51 Room Air 03/26/22 23:25 PG Care Time/CCT Total # of Minutes Spent Total Time Spent with Patient: Total time spent is greater than 50% in coordination of care (as documented) at patient's floor/unit and/or counseling patient: Coding Level of Care Code 54979 Subseq Hosp Care Lvl 2 Diagnoses Small bowel obstruction K56.609 History of CVA (cerebrovascular accident) Z86.73
[2022-03-27] MEDS: PANTOprazole 40 MG in SYRINGE 0 ML IV SCH (11:31)
[2022-03-27 12:47] VITALS: BP 119/69; TEMP 98.1; O2SAT 96
[2022-03-27 12:50] VITALS: PULSE 93
--- NOTE | 2022-03-27 15:59 | Discharge Summary ---
Date of Service March 27, 2022 Admission HPI Per Admitting Provider This is an 86-year-old M with PMHx of monoclonal paraproteinemia, history of lacunar CVA, SVT, history of small bowel obstruction, BPH, elevated PSA, osteoarthritis, HLD and other medical conditions listed below who presents to the ER with worsening abdominal pain. He initially presented to the ER here on 03/09 with vomiting, nausea and abdominal pain. During his last ER visit he required an NG tube placed however the partial small bowel obstruction resolved on its own without surgical intervention. Prior to that he underwent outpatient EGD on 02/25 a impacted food bolus. Schatzki's ring was noted and 2 ulcers were clipped by GI and was started on pantoprazole. He had a repeat EGD scheduled for next week, and yesterday (03/21) stopped his plavix and aspirin anticipating the procedure. He was also noted to have left hand tingling and due to his history of stroke in the past he was placed on Plavix and aspirin with the instructions to stop aspirin after 21 days. Patient was seen by his PCP, in the office yesterday and was doing ok at that point. Last evening he ate ground beef, mashed potatoes and gravy with one peice of bread with gravy on it. This morning he awoke to being nauseous and vomiting around 6 am. Nausea has persisted throughout the day and has vomitted about 6 times. He reports his last bowel movement was yesterday afternoon and was hard and constipated, this was his first bowel movement since 10 days prior when he was hospitalized and required a suppository to promote bowel movement. He has not been able to tolerate MiraLAX at home as he "has just not felt up to it". He has been drinking water, however has not been drinking coffee or Mountain Dew which were 2 of his beverages of choice prior to all of this happening. His and youngest son are present at bedside and helps support the history. CT of the abdomen and pelvis reviewed today showing 1. Redemonstration of multiple distended and fluid-filled loops of small bowel measuring up to 41 mm in diameter, dilation appears somewhat more extensive than in prior exam, particularly in the right lower quadrant. No evidence of ischemia. The colon is decompressed. Findings are suggestive of partial small bowel obstruction versus ileus. 2. Prostatomegaly and bowel wall thickening likely due to chronic obstruction. Admission Exam Per Admitting Provider General: awake, alert, no apparent distress, appears ill Head: Normocephalic, atraumatic ENT: PERRL, EOMI, no pharyngeal exudate, mucous membranes moist Chest: Clear to auscultation, on room air, no adventitious breath sounds Cardiac: Regular rate and rhythm, no murmur, no JVD, normal peripheral pulses, good capillary refill Abdominal: Hypoactive BS in the LLQ and RLQ, active BS in the RUQ and LUQ quadrants, soft, some distension, minimally tender to palpation, no rebound or guarding Extremities: Normal inspection, no peripheral edema or erythema, calfs nontender to palpation Psych: Normal mood and affect Neuro: AAO x 3, strength intact bilaterally and rated 5/5, no motor deficits, speech is clear, no peripheral sensory deficits Principal Diagnosis SBO Discharge Exam General: Ambulating independently without assistance, not in distress, on room air HEENT: EOMI, HALLIE, MMM Chest: Clear breath sounds bilaterally, no wheezes or crackles CVS: Regular rate and rhythm, normal heart sounds, no murmur Abdomen: Soft, non tender, not distended, bowel sounds normal Neuro: Awake, alert, oriented, conversing well, non focal Extremities: No edema Discharge Data Allergies Allergy/AdvReac Type Severity Reaction Status Date / Time Penicillins Allergy Mild RASH Verified 03/19/22 11:17 soy Allergy Mild SHAKY, Verified 03/19/22 11:17 CHILLS, BM thiamine (vitamin B1) Allergy Mild RASH Verified 03/19/22 11:17 Consultations 03/22/22 14:54 ED Decision to Admit Stat 03/22/22 15:11 Consult Gastroenterology Routine Consult General Surgery Routine 03/22/22 16:15 Consult Cardiology Routine Ordered Studies 03/22/22 11:14 CT Abd and Pelvis [CT abd pelvis oral and IV con] Stat CT head/brain wo con Stat 03/26/22 10:00 FL small bowel follow through Routine Laboratory Results WBC 5.28 K/ul (4.8-10.8) 03/26/22 06:27 RBC 3.76 M/uL (4.63-6.08) L 03/26/22 06:27 Hgb 10.9 g/dl (14.0-18.0) L 03/26/22 06:27 Hct 33.7 % (40.1-51.0) L 03/26/22 06:27 MCV 89.6 fL (80.0-100.0) 03/26/22 06:27 MCH 29.0 pg (25.0-34.0) 03/26/22 06:27 MCHC 32.3 g/dL (32.0-36.0) 03/26/22 06:27 RDW Std Deviation 43.9 fL (36.4-46.3) 03/26/22 06:27 RDW Coeff of Flori 13.3 % (11.5-14.5) 03/26/22 06:27 Plt Count 168 K/uL (130-400) 03/26/22 06:27 MPV 12.0 fL (9.4-12.4) 03/26/22 06:27 Immature Gran % (Auto) 0.2 % 03/25/22 05:35 Neut % (Auto) 57.0 % 03/25/22 05:35 Lymph % (Auto) 27.9 % 03/25/22 05:35 Ritchie % (Auto) 12.0 % 03/25/22 05:35 Eos % (Auto) 2.9 % 03/25/22 05:35 Baso % (Auto) 0.0 % 03/25/22 05:35 Neut # (Auto) 3.29 K/uL (1.4-6.5) 03/25/22 05:35 Lymph # (Auto) 1.61 K/uL (1.2-3.4) 03/25/22 05:35 Ritchie # (Auto) 0.69 K/uL (0.24-0.82) 03/25/22 05:35 Eos # (Auto) 0.17 K/uL (0-0.50) 03/25/22 05:35 Baso # (Auto) 0.00 K/uL (0-0.2) 03/25/22 05:35 Immature Gran # (Auto) 0.01 K/uL (0.00-0.02) 03/25/22 05:35 PT 11.4 Seconds (9.0-12.0) 03/22/22 10:50 INR 1.1 (0.9-1.1) 03/22/22 10:50 APTT 23.1 Seconds (21.0-31.0) 03/22/22 10:50 PTT Ratio 0.8 03/22/22 10:50 Sodium 141 mmol/L (136-145) 03/27/22 05:39 Potassium 3.2 mmol/L (3.5-5.1) L 03/27/22 05:39 Chloride 112 mmol/L (98-107) H 03/27/22 05:39 Carbon Dioxide 25 mmol/L (21-32) 03/27/22 05:39 Anion Gap 4 (3-11) 03/27/22 05:39 BUN 4 mg/dl (6-23) L 03/27/22 05:39 Creatinine 0.79 mg/dl (0.6-1.4) 03/27/22 05:39 Est Cr Clr Drug Dosing 67.3 ml/min 03/27/22 05:39 Est GFR ( Amer) 95.6 ml/min 03/27/22 05:39 Est GFR (Non-Af Amer) 82.5 ml/min 03/27/22 05:39 BUN/Creatinine Ratio 5.1 (10-20) L 03/27/22 05:39 Glucose 101 mg/dl (70-99(Fasting)) H 03/27/22 05:39 POC Glucose 124 mg/dl (70-99) H 03/26/22 11:37 Calcium 7.9 mg/dl (8.5-10.1) L 03/27/22 05:39 Phosphorus 3.0 mg/dl (2.5-4.9) 03/27/22 05:39 Magnesium 1.8 mg/dl (1.7-2.4) 03/27/22 05:39 Total Bilirubin 1.4 mg/dl (0.2-1.0) H 03/22/22 10:50 AST 32 U/L (13-39) 03/22/22 10:50 ALT 36 U/L (7-52) 03/22/22 10:50 Alkaline Phosphatase 76 U/L (34-104) 03/22/22 10:50 Troponin I High Sens 7.1 pg/ml (0-20) 03/22/22 10:50 Total Protein 6.7 gm/dl (6.0-8.3) 03/22/22 10:50 Albumin 3.9 gm/dl (3.4-5.0) 03/22/22 10:50 Globulin 2.8 gm/dl (2.5-4.0) 03/22/22 10:50 Albumin/Globulin Ratio 1.4 (0.9-2) 03/22/22 10:50 Lipase 15 U/L (11-82) 03/22/22 10:50 TSH 1.031 uIu/ml (0.300-4.500) 03/22/22 10:50 Urine Color Yellow 03/23/22 03:00 Urine Appearance Clear (Clear) 03/23/22 03:00 Urine pH 5.0 (4.5-7.5) 03/23/22 03:00 Ur Specific [place] > 1.045 (1.000-1.030) H 03/23/22 03:00 Urine Protein Negative (Negative) 03/23/22 03:00 Urine Glucose (UA) Negative (Negative) 03/23/22 03:00 Urine Ketones 2+ (Negative) H 03/23/22 03:00 Urine Blood Negative (Negative) 03/23/22 03:00 Urine Nitrite Negative (Negative) 03/23/22 03:00 Urine Bilirubin Negative (Negative) 03/23/22 03:00 Urine Urobilinogen Negative (Negative) 03/23/22 03:00 Ur Leukocyte Esterase Negative (Negative) 03/23/22 03:00 SARS-CoV-2, RNA, NAAT NEGATIVE (NEGATIVE) 03/22/22 15:23 Impressions Chest X-Ray 03/22/22 11:12 XR chest 1V portable HISTORY: 86 years-old Male upper pain weakness COMPARISON: Chest radiograph 02/20/2022 TECHNIQUE: Portable AP view of the chest FINDINGS: Cardiomediastinal and hilar silhouettes are within normal limits. No pneumothorax, pleural effusion, airspace consolidation or overt pulmonary edema. Degenerative changes of the shoulders and spine. IMPRESSION: No acute process. ACT 112: Negative or not required by law. The above report was generated using voice recognition software. It may contain grammatical, syntax or spelling errors. Electronically signed by: Bruce Gudino M.D. 03/22/2022 11:43 AM Abdomen/Pelvis CT 03/22/22 11:14 CT abd pelvis oral and IV con CLINICAL HISTORY: vomiting TECHNIQUE: Helical axial images of the abdomen and pelvis were obtained and displayed. Automated dose lowering techniques and/or adjustment according to patient size were utilized for this exam. This exam was performed with intravenous contrast. COMPARISON: Comparison is made to CT abdomen pelvis 03/09/2022 FINDINGS: Lower chest: Bibasilar atelectasis versus scarring is seen. Liver: Unremarkable. No focal lesions are seen. Gallbladder and biliary tree: Patient is status post cholecystectomy. No intra- or extrahepatic biliary ductal dilation. Pancreas: Unremarkable, no focal lesions. Spleen: Unremarkable. Adrenals: Unremarkable. Kidneys and ureters: Parapelvic cysts are seen bilaterally. Bladder: Diffuse homogeneous wall thickening is seen. Reproductive organs: Prostatomegaly is seen. Bowel: Multifocal small bowel dilation is seen, more extensive than in the prior exam and most pronounced in the left upper quadrant measuring up to 41 mm, unchanged from prior exam. Postsurgical changes of bowel resection are seen. Surgical clips are seen in the distal esophagus and there is a small hiatal hernia. There is a short segment of under distended distal small bowel which may represent a transition point. Lymph nodes Retroperitoneal: Subcentimeter lymph nodes are noted. Pelvic: Unremarkable. Mesenteric: Subcentimeter lymph nodes are noted. Peritoneum: No ascites or pneumoperitoneum is seen. Vessels: Atherosclerotic calcifications are seen. Abdominal wall: Unremarkable. Bones: Degenerative changes in the visualized spine. IMPRESSION: 1. Redemonstration of multiple distended and fluid-filled loops of small bowel measuring up to 41 mm in diameter, dilation appears somewhat more extensive than in prior exam, particularly in the right lower quadrant. No evidence of ischemia. The colon is decompressed. Findings are suggestive of partial small bowel obstruction versus ileus. 2. Prostatomegaly and bowel wall thickening likely due to chronic obstruction. ACT 112: Negative or not required by law. Electronically signed by: Jeremy Velasco M.D. 03/22/2022 1:[address] 03/22/22 11:14 CT head/brain wo con CLINICAL HISTORY: vertigo Technique: Contiguous axial CT images of the head were acquired from the base of the skull to the vertex without intravenous contrast administration. Images were viewed in brain, subdural and bone windows. Automated dose lowering techniques and/or adjustment according to patient size were utilized for this exam. Comparison: Comparison is made to CTA head 03/09/2022 and MRI brain 522 Findings: The ventricles, basal cisterns, and cerebral sulci are normal. There is no acute intracranial hemorrhage or evidence of acute territorial infarction. Neither mass effect, shift of the midline structures, nor abnormal extra-axial fluid collections are shown. Imaged portions of the paranasal sinuses and mastoid air cells are clear. The orbits appear normal. There are no acute fractures of the calvaria or scalp swelling. Impression: No acute intracranial hemorrhage, no evidence of acute territorial infarction or other acute intracranial disease process. ACT 112: Negative or not required by law. Electronically signed by: Jeremy Velasco M.D. 03/22/2022 1:33 PM KUB X-Ray 03/23/22 07:00 XR KUB/Abdomen 1 view CLINICAL HISTORY: sbo TECHNIQUE: 1 view of the abdomen was obtained. Comparison: Comparison is made to abdomen radiograph 03/22/[address] abdomen pelvis 03/22/2022 FINDINGS: Stable appearance of enteric tube. Degenerative changes are seen in the visualized skeleton. Postsurgical changes of bowel resection are seen. Bowel loops are not well seen due to a paucity of small bowel gas. Small stool burden is seen. IMPRESSION: Small bowel loops are not well seen due to a paucity of small bowel gas. Radiographic evaluation of small bowel obstruction is limited. ACT 112: Negative or not required by law. Electronically signed by: Jeremy Velasco M.D. 03/23/2022 7:19 AM Small Bowel X-Ray 03/26/22 10:00 SMALL BOWEL FOLLOW-THROUGH CLINICAL HISTORY: Small bowel obstruction. COMPARISON STUDY: Abdominal CT dated 03/22/2022. TECHNIQUE: An abdominal home health aide radiograph was performed. Approximately 600 cc of a mixture of Optiray 320 and water was administered through the enteric tube and a small bowel follow-through was performed. 2 overhead radiographs were obtained at 0 minutes and 20 minutes. No spot compression imaging was performed. FINDINGS: The abdominal home health aide radiograph shows gaseous distention of small bowel loops in the left upper quadrant. There is no radiographic evidence of high-grade obstruction, as gas and stool are seen in the colon. No evidence of intraperitoneal free air is seen. An enteric tube is in place. Cholecystectomy clips are noted in the right upper quadrant. There is a 4 mm nonobstructing left renal calculus. Phleboliths are seen in the pelvis On the small bowel follow-through, there is rapid transit time with contrast identified in the colon at 20 minutes. The duodenum is normal in configuration. Mildly distended small bowel loops are again seen in the left upper quadrant. There is no obstruction. The small bowel mucosal pattern is normal. There is no evidence of stricture or mass. IMPRESSION: 1. There is no evidence of bowel obstruction. Enteric contrast reaches the colon at 20 minutes. 2. Mildly distended loops of small bowel are again seen in the left upper quadrant. 3. Left-sided nephrolithiasis. ACT 112: Negative or not required by law. Electronically signed by: Harsh Smalls M.D. 03/26/2022 11:40 AM Hospital Course (1) Small bowel obstruction: Resolved. s/p NG tube which is now removed and diet was advanced gradually which he has been tolerating well without issues. No N/V/abd pain or distension. Having regular BM now. He is anxious to go home. Cleared by surgery for discharge. He has history of bowel resections in the past CT A/P 03/22 1. Redemonstration of multiple distended and fluid-filled loops of small bowel measuring up to 41 mm in diameter, dilation appears somewhat more extensive than in prior exam, particularly in the right lower quadrant. No evidence of ischemia. The colon is decompressed. Findings are suggestive of partial small bowel obstruction versus ileus. 2. Prostatomegaly and bowel wall thickening likely due to chronic obstruction Small bowel follow through 03/26 1. There is no evidence of bowel obstruction. Enteric contrast reaches the colon at 20 minutes. 2. Mildly distended loops of small bowel are again seen in the left upper quadrant. 3. Left-sided nephrolithiasis. (2) Vomiting: resolved. (3) SVT (supraventricular tachycardia): - Resolved. Seen by cardiolog- monitored on tele which was unremarkable. Cardio recommended low dose BB if recurrent SVT but there was no recurrence. (4) CVA (cerebral vascular accident): -History of such in May 2021 lacunar infarct -At baseline is on Plavix, recently stopped aspirin and Plavix in anticipation of EGD as above, was scheduled to be on aspirin x21 which has nearly completed at this point -Fall precautions -Continue statin (5) HLD (hyperlipidemia): -Continue statin therapy (6) BPH (benign prostatic hyperplasia): -Continue finasteride, doxazosin when able to take po Plan Comfortable and stable for discharge. Ambulating independently. Denies any needs. and son at bedside. Questions answered. Total Time Total Time Spent Total Time Spent (In Minutes): 40 Discharge Plan Discharge Items Patient Disposition: Home - Self-Care Reason For Visit: SMALL BOWEL OBSTRUCTION Discharge Diagnosis: SBO Activity: Resume your previous activity Non-emergency contact: Primary Care Provider Call non-emergency contact if: you have any medication questions, your symptoms worsen, your pain is not controlled and you have a fever Follow-up/Referrals: Grant Gold, [Primary Care Provider] - (Date & Time 03/30/2022 11:00 AM Provider Joe Garcia III, MD Department [facility] ) Diet: Regular Addtl Attending Provider Instructions: If recurrent signs of obstruction like nausea, vomiting, abd pain or distension, please come back to the emergency Follow with your family doctor and surgeon Pending Studies at Discharge: No Stand-Alone Forms: [facility], Smoking Cessation Medications and DC Order Prescriptions: Continued clopidogrel 75 mg Tablet 75 mg PO QAM Qty: 30 1RF pantoprazole 40 mg tablet,delayed release (DR/EC) 40 mg PO QAM doxazosin [Cardura] 4 mg tablet 8 mg PO HS finasteride [Proscar] 5 mg tablet 5 mg PO QAM atorvastatin 40 mg Tablet 40 mg PO QAM Qty: 30 0RF fluticasone propionate 50 mcg/actuation [place],Suspension 2 spray INTRANASAL QAM Rx Instructions: administer into each nostril PreserVision AREDS-2 250-90-40-1 mg Capsule 1 tab PO AMHS Discontinued aspirin 81 mg tablet,delayed release (DR/EC) 81 mg PO HS Label Comments: * Patient said he stopped the baby aspirin, however it was on his med list from 03/21. Discharge Orders: Discharge Order (Routine); Ordered 03/27/22 Ordered By: Jero Jiménez Admission Data Admit Date/Time: 03/22/22 16:15 Attending Provider: Jero Jiménez Admit Provider: Zeyad Singleton Primary Care Provider: Grant Gold Other Providers: Roslyn Devlin ; Louie Mistry ; Zeyad Singleton ; Bryan Tompkins Other Interventions: Discharge Summary Assessment (RN) Last Done: 03/27/22 12:48
== END 2022-03-27 14:42 | disposition home or self-care (01) | DRG 389 ==
LOC: 2N 10:16 → ED 10:16 → SUATTDRO 16:15 → 2N 18:19
DX: I47.1 Supraventricular tachycardia; K56.600 Partial intestinal obstruction, unspecified as to cause; E83.42 Hypomagnesemia; D47.2 Monoclonal gammopathy; N40.0 Benign prostatic hyperplasia without lower urinary tract symptoms; Z86.73 Personal history of transient ischemic attack (TIA), and cerebral infarction without residual deficits; Z79.82 Long term (current) use of aspirin; Z88.0 Allergy status to penicillin; Z79.02 Long term (current) use of antithrombotics/antiplatelets; E86.0 Dehydration; Z88.8 Allergy status to other drugs, medicaments and biological substances; E78.5 Hyperlipidemia, unspecified